=== PATIENT | male | born 1980 | race Caucasian/White ===

== ENCOUNTER 2019-09-14 05:32 | Emergency (ER) | payer MEDICAID, SELFPAY ==
[2019-09-14] VITALS (11 sets, daily range): BP systolic 106–124; BP diastolic 70–93; PULSE 56–116; RESP 11–27; TEMP 36.5; O2SAT 95–100; BMI 32.6
--- NOTE | 2019-09-14 05:39 | ED.RN ---
CALLED FOR EKG PER RN REQUEST, NO OLD EKGS IN MUSE
--- NOTE | 2019-09-14 05:40 | ED.VIS.GEN ---
History of Present Illness Chief Complaint: Syncope Informant: Patient Narrative: 38-year-old male presents after a near syncopal episode while he was working at [employer]. 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 This morning when he awoke he felt like he was little off but thought he would feel better when he got to work. When he started to do lifting he started to feel short of breath and lightheaded. He states he went and sat down for a few minutes and started to feel better but when he stood up he almost fainted again. He does say that he feels short of breath. He is denying chest pain. He states his heart rate is usually 60. He has not had a fever or cough. 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 He denies any medical problems. Past Medical History - Allergies and Home Meds Allergies/Adverse Reactions: Allergies Penicillins Allergy (Verified 09/14/19 05:41) PT UNSURE OF REACTION sulfamethoxazole [From Bactrim] Allergy (Verified 09/14/19 05:41) Hives trimethoprim [From Bactrim] Allergy (Verified 09/14/19 05:41) Hives Past Medical History: None Lives: Alone Smoking Status: Never smoker Alcohol: None Drugs: None Review of Systems General: Reports: - - Near syncopal episode prior to arrival. Denies: Chills, Fever Eyes: Denies: Visual changes - bilaterally, Diplopia ENT: Denies: Rhinorrhea, Sore throat Cardiovascular: Reports: Palpitations, Heart racing. Denies: Chest pain Respiratory: Reports: Dyspnea, Dyspnea on exertion Gastrointestinal: Denies: Abdominal pain, Nausea Musculoskeletal: Denies: Myalgias, Arthralgias Skin: Denies: Rash Neurological: Denies: Headache Physical Exam Inital Vital Signs reviewed: Yes General: Well nourished, No Acute Distress Head: Normocephalic, Atraumatic Eyes: Perrl ENT: Moist mucous membranes Cardiovascular: Irregular, Tachycardia Respiratory: No distress, CTA bilaterally, Chest nontender. Negative for: Wheezing Abdomen: Soft Extremities: Nontender, No edema Skin: Normal color Neurological: Alert, Oriented x3 Psychological: Normal affect Diagnostic/Tx/Re-eval - Rhythm Strip Rhythm Strip: A-fib Rate: 142 - EKG Initial EKG Interpretation: Atrial Fibrillation - RVR 142 BPM Prior: No Prior Follow-up EKG Interpretation: Atrial Fibrillation - Beats per minute - Medical Decision Making Presents with near syncope and shortness of breath he is found to be in atrial fibrillation with RVR. This is new onset for him. It started this morning however. Patient denies any other medical problems. Ultimately his lab work-up is normal with exception of a potassium of 3.4. Troponins negative. D-dimer is negative. Patient was given 20 of Cardizem and now is a rate of 83 bpm. He feels improved. Patient was discussed with Dr. Farley who recommended Xarelto and then cardioversion in an hour after that. Signed out to incoming ED physician. Patient's prescription for Xarelto was written. If he cardiovert he does not need to be on metoprolol. Dr. Farley did come and evaluate the patient in the ED. Consented for conscious sedation with propofol and for electrical cardioversion. He understands risks and benefits. Impression: 1. Near syncope 2. New onset A. fib 3. Status post cardioversion ED Disposition - Plan for ED Patient: Disposition: Home or Assisted Living Instructions: Atrial Fibrillation, Cardioversion Referrals: Care Physician,No Primary [Primary Care Provider] - Anil Farley MD [STAFF PHYSICIAN] -
--- NOTE | 2019-09-14 05:46 | RAD_ITS ---
STUDY: X-RAY CHEST REASON FOR EXAM: Male, 38 years old. Dizziness and shortness of breath. TECHNIQUE: AP portable chest. COMPARISON: None. FINDINGS: The lungs are clear and expanded. There is no demonstrated pleural abnormality. Normal size heart. Normal mediastinum and wendie. Normal visualized pulmonary arteries. Normal visualized aortic arch and descending thoracic aorta. Normal visualized thoracic spine. Normal visualized ribs, clavicles, and shoulders. There is no demonstrated abnormality of the visualized soft tissue structures of the upper abdomen. RAD/Chest 1 View (Portable) IMPRESSION: Normal x-ray examination of the chest. Electronically Signed: Eduardo Briones MD at 6:39 EDT , Service support ,
--- NOTE | 2019-09-14 05:46 | EKG12_ITS ---
Test Reason : A FIB Blood Pressure : / mmHG Vent. Rate : 052 BPM Atrial Rate : 052 BPM P-R Int : 122 ms QRS Dur : 094 ms QT Int : 412 ms P-R-T Axes : 024 042 027 degrees QTc Int : 383 ms Sinus bradycardia Low voltage QRS (Limb Leads) Confirmed by ARLETTE AMBRIZ, KHUSHBU ([id number]), video editor MAGEN ERWIN ([id number]) on 09/20/2019 9:10:56 AM Referred By: TOMAS Confirmed By:KHUSHBU CHONG MD
[2019-09-14] MEDS: Aspirin 81 MG TAB.CHEW 324 MG PO (05:51)
[2019-09-14] MEDS: dilTIAZem 25 MG/5 ML Vial 20 MG IV BOLUS (05:51)
[2019-09-14] MEDS: 0.9% Normal Saline 1,000 ML 1000 ML IV (05:51)
[2019-09-14 05:55] LABS: Absolute Neutrophil Count 3.3 X10^3/uL (2.0-7.7); Basophil# 0.03 X10^3/uL; Basophil% 0.5 % (0-1); Eosinophil# 0.09 X10^3/uL; Eosinophils% 1.4 % (0-5); Hematocrit 45.1 % (40-54); Lymphocyte % 35.2 % (19-41); Mean Corp Hgb Conc 35.5 g/dL (32-36); Mean Corpuscular Volume 87.4 fL (80-94); Mean Platelet Vol. 9.2 fl (6.2-12.0); Monocyte# 0.63 X10^3/uL; Monocyte% 10.1 % (0-10); NRBC Flagged by Analyzer 0 % (0-5); Neutrophil # 3.29 X10^3/uL (2.7-7.7); Neutrophil % 52.6 % (47-70); Platelet Count 359 K/mm3 (150-450); RBC Distribution Width CV 12.6 % (11.6-14.6); RBC Distribution Width SD 39.8 fl (35.1-43.9); Red Blood Count 5.16 M/mm3 (4.6-6.2); White Blood Count 6.3 K/mm3 (4.4-11.0)
[2019-09-14 06:09] LABS: Anion Gap 6 (5-15); BUN 15 mg/dL (7-18); BUN/Creat Ratio 13.8 RATIO (10-20); Chloride 112 mmol/L (98-107); Creatinine, Serum 1.09 mg/dL (0.70-1.30); EST Glomerular Filtration Rate 81 mL/min (>60); Est Glom Filt Rate - Afr Amer 98 mL/min (>60); Estimated Creatinine Clearance 99.79 ml/min; Glucose 73 mg/dL (74-106); Potassium 3.4 mmol/L (3.5-5.1); Sodium Level 142 mmol/L (136-145)
--- NOTE | 2019-09-14 06:46 | EKG12_ITS ---
Test Reason : SYNCOPE Blood Pressure : / mmHG Vent. Rate : 083 BPM Atrial Rate : 416 BPM P-R Int : 000 ms QRS Dur : 090 ms QT Int : 344 ms P-R-T Axes : 000 038 014 degrees QTc Int : 404 ms Atrial fibrillation Abnormal ECG Confirmed by ARLETTE AMBRIZ, KHUSHBU ([id number]), editor & co founder MAGEN ERWIN ([id number]) on 09/20/2019 9:11:17 AM Referred By: TOMAS Confirmed By:KHUSHBU CHONG MD
[2019-09-14 07:08] LABS: Magnesium 2.1 mg/dL (1.6-2.6)
[2019-09-14] MEDS: Rivaroxaban 20 MG Tablet PO (07:39)
[2019-09-14] MEDS: 0.9% Normal Saline 1,000 ML 999 ML IV (07:46)
--- NOTE | 2019-09-14 08:39 | ED.DEP ---
ED Disposition - Plan for ED Patient: Disposition: Home or Assisted Living Instructions: Cardioversion, Atrial Fibrillation Prescriptions: Diltiazem CD [Cardizem CD] 120 mg PO DAILY #30 cap Prescription Printed Rivaroxaban [Xarelto] 20 mg PO DAILY #30 tab Prescription Printed Referrals: Anil Farley MD [STAFF PHYSICIAN] - Care Physician,No Primary [Primary Care Provider] -
--- NOTE | 2019-09-14 08:50 | EKG12_ITS ---
Test Reason : DYSRHYTHMIA Blood Pressure : / mmHG Vent. Rate : 142 BPM Atrial Rate : 147 BPM P-R Int : 000 ms QRS Dur : 088 ms QT Int : 298 ms P-R-T Axes : 000 046 015 degrees QTc Int : 458 ms Atrial fibrillation with rapid ventricular response with premature ventricular or aberrantly conducte d complexes Abnormal ECG No previous ECGs available Confirmed by OLGA ZARATE ([id number]), metropolitan editor SRINI BUENROSTRO ([id number]) on 09/27/2019 2:29:26 PM Referred By: TOMAS Confirmed By:OLGA ZARATE
[2019-09-14] MEDS: Propofol 200 MG/20 ML Vial IV BOLUS (08:52)
--- NOTE | 2019-09-14 10:50 | CON.PCM_ITS ---
Problem List (1) Atrial fibrillation Status: Acute Reason for Consult Date of Consultation: 09/14/19 History of Present Illness: The patient is a 38 year [id number]-bze white male who is referred for evaluation of atrial fibrillation. He states to the best of his knowledge she has been in his usual state of health until earlier this morning. He states he awoke and felt that his heart rate was somewhat different and he felt somewhat off . He proceeded to work but then realized that he did not feel well. He felt somewhat faint . Thus he proceeded to the emergency department for further evaluation. There he was found to be in atrial fibrillation with rapid ventricular response. He was treated with IV diltiazem with slowing of his ventricular rate. He denies other forms of chest discomfort or difficulty breathing/orthopnea/PND. He denies any lower extremity peripheral pitting edema. There is been no near syncope or syncope. 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 He has been evaluated and treated for such. He denies any recent change in his caffeine intake (usually 1 cup/day) or alcohol intake (usually an occasional beer) or any nicotine intake or xojj-[id number]-[id number] decongestant intake. His laboratory studies were considered unremarkable with the exception of a slightly low potassium level. His electrocardiogram demonstrated atrial fibrillation. His chest x-ray reported no acute cardiopulmonary findings. [] Past Medical History Allergies/Adverse Reactions: Allergies Penicillins Allergy (Verified 09/14/19 05:41) PT UNSURE OF REACTION sulfamethoxazole [From Bactrim] Allergy (Verified 09/14/19 05:41) Hives trimethoprim [From Bactrim] Allergy (Verified 09/14/19 05:41) Hives Home Medications: Ambulatory Orders Medication Instructions Recorded Diltiazem CD [Cardizem CD] 120 mg PO DAILY #30 cap 09/14/19 Rivaroxaban [Xarelto] 20 mg PO DAILY #30 tab 09/14/19 Lives: Alone Smoking Status: Never smoker Alcohol: None Drugs: None Review of Systems - Review of Systems General: Denies: Fever, Night Sweats, Fatigue Cardiovascular: Reports: Palpitations, Near Syncope. Denies: Chest Discomfort, Shortness of Breath, Orthopnea, PND, Peripheral Edema, Lightheadedness, Dizziness, Syncope Respiratory: Denies: Cough, Sputum Production, Hemoptysis Gastrointestinal: Denies: Hematemesis, Hematochezia, Melena Genitourinary: Denies: Dysuria, Hematuria Skin: Denies: Rash Subjectve: This is a 38-year-old white male who appears to be resting reasonably comfortably at the moment in no acute distress. Objective: Vital Signs Temp Pulse Resp BP Pulse Ox 97.7 F L 60 16 108/80 98 09/14/19 05:34 09/14/19 09:58 09/14/19 09:58 09/14/19 09:58 09/14/19 09:58 Oxygen Flow Rate (L/min) [4] 4 Oxygen Flow Rate (L/min) [3] 2 Oxygen Flow Rate (L/min) [2] 2 Oxygen Flow Rate (L/min) [1 ( 2 Initial Baseline)] Oxygen Flow Rate (L/min) 2 Oxygen Delivery Method [4] Nasal Cannula Oxygen Delivery Method [3] Nasal Cannula Oxygen Delivery Method [2] Nasal Cannula Oxygen Delivery Method [1 ( Nasal Cannula Initial Baseline)] Oxygen Delivery Method Room Air Weight: 234 lb 5.622 oz Body Mass Index (BMI) 32.6 Intake and Output for Last 24 Hours 09/12/19 09/13/19 09/14/19 23:59 23:59 23:59 Intake Total 1999 / 1999 Output Total 1000 / 1000 Balance 1000 / 1000 General: Awake, Alert, Oriented x 3, Cooperative, No Acute Distress HEENT: Atraumatic, Normocephalic, PERRL, EOMI, Sclera Non Icteric Oral: Moist Mucosa Neck: Supple, Good ROM, No JVD Lungs: Clear to auscultation Cardiovascular: Irregular Rhythm, Normal S1, Normal S2 Vascular: No Carotid Bruits Abdomen: Bowel Sounds Present, Soft, Non Tender Extremities: No edema Neurological: No Focal Motor or Sensory Deficit Psych/Mental Status: Appropriate 09/14/19 05:40: WBC 6.3, RBC 5.16, Hgb 16.0, Hct 45.1, MCV 87.4, MCH 31.0, MCHC 35.5, Plt Count 359, MPV 9.2, Immature Gran % (Auto) 0.200, Neut % (Auto) 52.6, Lymph % (Auto) 35.2, [place] % (Auto) 10.1 H, Eos % (Auto) 1.4, Baso % (Auto) 0.5, Absolute Neuts (auto) 3.3, Nucleated RBC % 0 09/14/19 05:40: D-Dimer Quant (PE/DVT) 0.30 09/14/19 05:40: Sodium 142, Potassium 3.4 L, Chloride 112 H, Carbon Dioxide 24.0, Anion Gap 6, BUN 15, Creatinine 1.09, Est GFR (MDRD) Af Amer 98, Est GFR (MDRD) Non-Af 81, BUN/Creatinine Ratio 13.8, Glucose 73 L, Calcium 9.0, Troponin I < 0.015 09/14/19 05:40: Magnesium 2.1 Rhythm: Atrial fibrillation EKG: As noted above CXR: As noted above: Please see official report Assessment/Plan 1. Atrial fibrillation The patient presented with atrial fibrillation. This may be secondary to the patient's history of NASIM barring another etiology being found. It appears this started shortly prior to his emergency department admission. He has been evaluated noninvasively as noted above. At the present time he is going to be monitored. Based upon his acute presentation, status post evaluation, it was thought reasonable the patient could be considered for an attempt at synchronized biphasic DC cardioversion to regain sinus rhythm. This would be preceded by a dose of Xarelto of 20 mg p.o. x1 then waiting for approximately 1 hour prior to proceeding with the DC cardioversion procedure. If the patient regain sinus rhythm then the patient may continue on medical therapy such as diltiazem/Cardizem CD starting at 120 mg a day as well as anticoagulant therapy with the Xarelto at 20 mg p.o. daily. The patient would be recommended for outpatient cardiovascular follow-up which would include additional cardiovascular studies such as a transthoracic echoc ardiogram and other studies as deemed appropriate. 2. Obstructive sleep apnea The patient should continue evaluation and care of his obstructive sleep apnea as deemed appropriate. Comment: The patient states that [place] He does need to seek PCP establishment. Comment: The patient's case was discussed and reviewed with the [facility] emergency department staff. This note was generated using a voice recognition system and there may be incorrect words, spelling or punctuation that were not noted when reviewing the office note prior to saving.
== END 2019-09-14 09:59 | disposition home or self-care (01) ==
PROVIDERS: Emergency Provider Student in an Organized Health Care Education/Training Program
DX: R55 Syncope and collapse (principal); I48.91 Unspecified atrial fibrillation
CPT/HCPCS: 71045; 80048; 83735; 84484; 85025; 85379; 92960; 93005; 96361; 96374; 99285; J7030; A4216

== ENCOUNTER → 2020-02-10 14:42 | Outpatient (CLI) | payer OTHER, MEDICAID, SELFPAY ==
[2020-01-20 13:55] VITALS: BMI 30.7
--- NOTE | 2020-02-10 14:45 | ECHOD_ITS ---
Reason For Study: AFIB Procedure This was a 2D Doppler, Color Flow transthoracic echocardiogram. Exam performed in department. Left Ventricle Normal LV size. The estimated ejection fraction is 55 %. No evidence for diastolic dysfunction. No regional wall motion abnormalities noted. Right Ventricle Normal RV size. Normal systolic function. Atria Normal left atrium. Normal right atrium. No doppler evidence for ASD. Mitral Valve There is no mitral valve stenosis. No mitral valve insufficiency. Tricuspid Valve There is no tricuspid stenosis. Trivial tricuspid valve insufficiency. Pulmonary artery systolic pressure is 30 mmHg. Aortic Valve Trisinus/trileaflet aortic valve. There is no aortic stenosis. No aortic valve insufficiency. Pulmonic Valve There is no pulmonic valvular stenosis. No pulmonic valve insufficiency. Great Vessels Normal aortic root. Pericardium/Pleural No pericardial effusion. MMode/2D Measurements & Calculations LVIDd: 5.5 cm IVSd: 0.90 cm Ao root diam: 3.1 cm LVIDs: 3.5 cm LVPWd: 0.90 cm RVDd: 4.1 cm FS: 36.8 % LAV(MOD-bp): 52.2 ml LVAd ap4: 37.2 cm2 SV(MOD-sp4): 69.8 ml LAV(MOD-bp) Indexed: 23.8 ml/m2 EDV(MOD-sp4): 125.2 ml LAV(MOD-sp2): 56.2 ml EDV(sp4-el): 129.8 ml LAV(MOD-sp4): 44.6 ml LVAs ap4: 21.1 cm2 ESV(MOD-sp4): 55.4 ml ESV(sp4-el): 53.7 ml EF(MOD-sp4): 55.7 % EF(sp4-el): 58.6 % SV(sp4-el): 76.1 ml LA A4 area: 18.8 cm2 LA dimension(2D): 4.1 cm RA A4 area: 14.2 cm2 Time Measurements MV dec time: 0.28 sec Doppler Measurements & Calculations MV E max pierre: 84.5 cm/sec Lat Peak E' Pierre: 17.9 cm/sec Med Peak E' Pierre: 13.3 cm/sec MV A max pierre: 30.5 cm/sec E/E' lat: 4.7 E/E' med: 6.3 MV E/A: 2.8 Ao V2 max: 128.1 cm/sec LV V1 max: 115.2 cm/sec PA V2 max: 123.4 cm/sec Ao max P.6 mmHg LV V1 max P.3 mmHg TR max pierre: 249.2 cm/sec TR max P.8 mmHg Interpretation Summary The estimated ejection fraction is 55 %. No evidence for diastolic dysfunction. Trivial tricuspid valve insufficiency. Ordering Physician: Deshawn Pate Referring Physician: CHERYL SIERRA Performed By: Estrella Babin RDCS, RVT
== END ==
PROVIDERS: PCP Nurse Practitioner Primary Care; Referring Provider Internal Medicine Cardiovascular Disease; Visit Provider Internal Medicine Cardiovascular Disease
DX: I48.0 Paroxysmal atrial fibrillation (principal)
CPT/HCPCS: 93306

== ENCOUNTER 2021-10-27 09:53 | Emergency (ER) | payer OTHER, BC, SELFPAY ==
[2021-10-27 09:54] VITALS: BP 145/83; PULSE 57; RESP 16; TEMP 36.7; O2SAT 99; BMI 36.0
--- NOTE | 2021-10-27 10:05 | EX.ED.UPPERE ---
HPI History of Present Illness Chief Complaint: Upper Extremity Injury Informant: patient Onset/Context/Timing Onset: Today Current Severity: Mild Maximum Severity: Mild Narrative Narrative: Patient present secondary left wrist pain. He works at [employer] and states he was lifting a package this morning and felt a popping sensation in his left wrist. He has mild pain to the area. He is right-hand dominant. He has had prior left wrist surgery after a fracture approximately 20 years ago. He had pins placed temporarily that were pulled. [facility] Medical History (Updated 10/27/21 @ 10:[address] Onelia Guardado MD) Obstructive sleep apnea Paroxysmal atrial fibrillation Allergy/AdvReac Type Severity Reaction Status Date / Time Penicillins Allergy PT UNSURE Verified 10/27/21 09:56 OF REACTION sulfamethoxazole Allergy Hives Verified 10/27/21 09:56 [From Bactrim] trimethoprim [From Bactrim] Allergy Hives Verified 10/27/21 09:56 Family History Mother Thyroid disorder Brother Sleep apnea Grandfather Atrial fibrillation Onset in mid 70s. Surgical History H/O adenoidectomy H/O left wrist surgery Social History Smoking Status: Never smoker alcohol intake: current details: Rarely ROS ROS ED Constitutional Constitutional ED: Denies chills or fever(s) Eyes Eyes: Denies change in vision or discharge from eye(s) ENT ENT ED: Denies discharge from eye(s), rhinorrhea or sore throat Cardiovascular Cardiovascular: Denies chest pain or palpitations Respiratory/Chest Respiratory/Chest: Denies cough or dyspnea Gastrointestinal Gastrointestinal: Denies abdominal pain, diarrhea, nausea or vomiting Genitourinary Genitourinary ED: Denies difficulty urinating or dysuria Musculoskeletal Musculoskeletal: Reports extremity pain; Denies back pain Integumentary Denies Abrasions or rash Neurologic Neurologic: Denies headache(s) or weakness Allergic/Immunologic Allergic/Immunologic ED: Denies lip swelling or urticaria EXAM Physical Exam Const Vital Signs: 10/27/21 09:54 Temperature 98.0 F Temperature Source Temporal Pulse Rate 57 L Respiratory Rate 16 Blood Pressure 145/83 H Blood Pressure Mean 103 Pulse Ox 99 Oxygen Delivery Method Room Air Positive well nourished and well developed General Appearance ED: well developed HEENT Reports normocephalic and head/scalp atraumatic Eyes PERRL and EOMs intact bilaterally Neck supple Chest Wall inspection of chest normal and palpation of chest normal Resp normal respiratory effort and clear to auscultation bilaterally Cardio regular rate and regular rhythm GI normal to inspection, nondistended, normoactive bowel sounds Palpation: soft Extremity normal to inspection Extremity Narrative: No reproducible tenderness to palpation. Full range of motion of the left upper extremity. Good sensation and cap refill distally. Normal strength. Neuro oriented x3 and no sensory deficits noted Sensorium / Orientation: alert Motor Exam: strength 5/5 throughout Psych mental status grossly normal Skin no rashes or lesions noted MDM MDM MDM Narrative Medical decision making narrative: Left wrist x-rays obtained. Treatment and Re-Evaluation Narrative: Left wrist x-rays per my interpretation reveal chronic changes with no acute fracture. Test results discussed with the patient. He will follow-up with [facility]. If not improving I advised him they may refer him on to orthopedics because of his history of prior fracture and pins. He voices understanding and agreement. Discharge Plan Triage Chief Complaint: Upper Extremity Injury ED Provider: Onelia Guardado Dx/Rx/DC Orders Clinical Impression: Left wrist sprain Instructions: ED Wrist Sprain Stand Alone Forms: Work Status Form Primary Care Provider: Castro García NP Referrals: [facility] [place] [Group of Physicians] - 3-5 Days Castro García NP, [employer] [Primary Care Provider] - Disposition Disposition: Home, Self Care
--- NOTE | 2021-10-27 10:09 | RAD_ITS ---
STUDY: X-RAY - LEFT WRIST REASON FOR EXAM: Male, 41 years old. pain TECHNIQUE: 3 view(s) of the wrist were obtained. COMPARISON: None. FINDINGS: Suspect healed fracture the distal radius with a chronic ulnar styloid avulsion fracture. Normal radiocarpal articulation. Normal distal radioulnar articulation. Normal carpal bones. Normal carpal articulations. Normal carpometacarpal articulation of the thumb. Normal second through fifth carpometacarpal articulations. Normal visualized metacarpal bones. The soft tissue structures are unremarkable. RAD/Wrist min 3 Views IMPRESSION: No acute fracture or dislocation. Electronically Signed: Jamal Munguia MD at 10:55 EDT ,
--- NOTE | 2021-10-27 10:30 | ED.RN ---
NO DRUG SCREEN IS REQUIRED. 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
== END 2021-10-27 10:44 | disposition home or self-care (01) ==
LOC: ED 10:40
PROVIDERS: Emergency Provider Emergency Medicine; PCP Nurse Practitioner Primary Care; Visit Provider Emergency Medicine
DX: S63.92XA Sprain of unspecified part of left wrist and hand, initial encounter (principal); G47.33 Obstructive sleep apnea (adult) (pediatric); X58.XXXA Exposure to other specified factors, initial encounter
CPT/HCPCS: 73110; 99282

== ENCOUNTER 2024-01-01 10:44 | Observation (INO) | payer BC, MEDICAID, SELFPAY ==
[2024-01-01] VITALS (23 sets, daily range): BP systolic 91–117; BP diastolic 55–90; PULSE 90–148; RESP 11–24; TEMP 35.7–36.7; O2SAT 94–100; BMI 32.5; BMI 32.1
--- NOTE | 2024-01-01 10:58 | RAD_ITS ---
STUDY: X-RAY CHEST REASON FOR EXAM: Male, 43 years old. Chest pain TECHNIQUE: Single AP portable view of the chest. COMPARISON: None. FINDINGS: The lungs are clear and expanded. There is no demonstrated pleural abnormality. Normal size heart. Normal mediastinum and wendie. Normal visualized pulmonary arteries. Normal visualized aortic arch and descending thoracic aorta. Normal visualized thoracic spine. Normal visualized ribs, clavicles, and shoulders. There is no demonstrated abnormality of the visualized soft tissue structures of the upper abdomen. RAD/Chest 1 View (Portable) IMPRESSION: Normal x-ray examination of the chest. Electronically Signed: Roberto Ramirez MD at 11:29 EST ,
--- NOTE | 2024-01-01 10:59 | EKG12_ITS ---
Test Reason : PALPS Blood Pressure : */* mmHG Vent. Rate : 148 BPM Atrial Rate : * BPM P-R Int : * ms QRS Dur : 78 ms QT Int : 286 ms P-R-T Axes : * 55 8 degrees QTcB Int : 449 ms Critical Test Result: High HR Atrial fibrillation with rapid ventricular response with premature ventricular or aberrantly conducte d complexes Abnormal ECG Confirmed by JUAN JOSÉ CORDOBA ([id number]), supervising editor trailer KAPIL ASHTON ([id number]) on 01/02/2024 11:53:20 AM Referred By: Confirmed By: JUAN JOSÉ CORDOBA
[2024-01-01 11:11] LABS: Absolute Lymphocyte Count 3.23 X10^3/uL (0.83-4.51); Absolute Neutrophil Count 3.3 X10^3/uL (2.0-7.7); Basophil# 0.04 X10^3/uL; Basophil% 0.5 % (0-1); Eosinophils% 1.3 % (0-5); Hematocrit 49.7 % (40-54); Hemoglobin 17.3 g/dL (13.0-16.5); Lymphocyte # 3.23 X10^3/ul (0.83-4.51); Lymphocyte % 43.2 % (19-41); Mean Corp Hgb Conc 34.8 g/dL (32-36); Mean Corpuscular Hgb 30.1 pg (27.0-32.0); Mean Corpuscular Volume 86.6 fL (80-94); Mean Platelet Vol. 8.9 fl (6.2-12.0); Monocyte# 0.78 X10^3/uL; Monocyte% 10.4 % (0-10); NRBC Flagged by Analyzer 0 % (0-5); Neutrophil % 44.3 % (47-70); Platelet Count 426 K/mm3 (150-450); RBC Distribution Width CV 12.7 % (11.6-14.6); RBC Distribution Width SD 39.7 fl (35.1-43.9); Red Blood Count 5.74 M/mm3 (4.6-6.2); White Blood Count 7.5 K/mm3 (4.4-11.0)
[2024-01-01 11:28] LABS: Prothrombin Time (Protime)PT. 13.5 SECONDS (11.7-14.9)
[2024-01-01 11:29] LABS: Partial Thromboplast Time 34.9 Seconds (24.1-36.2)
[2024-01-01 11:51] LABS: AST(SGOT) 30 U/L (15-37); Alanine Aminotransfer ALT/SGPT 35 U/L (16-61); Albumin, Serum 4.3 g/dL (3.2-5.0); Alkaline Phosphatase 79 U/L (45-117); Anion Gap 5 (5-15); BUN 17 mg/dL (7-18); BUN/Creat Ratio 14.2 RATIO (10-20); Bilirubin, Direct 0.22 mg/dL (0.00-0.30); Calcium,Total 9.2 mg/dL (8.5-10.1); Chloride 108 mmol/L (98-107); EST Glomerular Filtration Rate 71 mL/min (>60); Est Glom Filt Rate - Afr Amer 86 mL/min (>60); Estimated Creatinine Clearance 100.21 ml/min; Globulin 3.5 g/dL (2.2-4.2); Glucose 94 mg/dL (74-106); Magnesium 2.2 mg/dL (1.6-2.6); Protein, Total 7.8 g/dL (6.4-8.2); Sodium Level 139 mmol/L (136-145); Troponin-I HS 7 pg/mL (3.0-78.0)
--- NOTE | 2024-01-01 11:57 | EX.ED.DYSGE1 ---
HPI History of Present Illness Chief Complaint: Palpitations Informant: patient and spouse/S.O. Narrative Narrative: 43-year-old male with a prior history of atrial fibrillation presenting to the emergency room with palpitations. Patient states that last night while laying in bed at around 2330 hrs. he began to feel his heartbeat irregular. He states that in the past it had resolved with time but when he woke this morning it continued to be irregular. He notes a tightness in the chest but no pain. No significant dyspnea. He states he is not currently on any medications. At 1 point he was taking what sounds like diltiazem as well as Xarelto. He had had an echocardiogram as part of his workup with cardiology. He does have a history of sleep apnea and does wear CPAP therapy. [facility] Medical History (Updated 01/01/24 @ 12:[address] Stef Antunez DO) Atrial fibrillation Home Medications ?Medication ?Instructions ?Recorded ?Last Taken ?Type multivitamin (Daily Multi-Vitamin 1 tab PO DAILY 01/01/24 Unknown History tablet) Allergy/AdvReac Type Severity Reaction Status Date / Time penicillin G AdvReac Hives Verified 01/01/24 10:48 sulfamethoxazole (From AdvReac Hives Verified 01/01/24 10:48 Bactrim) trimethoprim (From Bactrim) AdvReac Hives Verified 01/01/24 10:48 Social History Smoking Status: Never smoker [facility] ED Constitutional Constitutional ED: Denies chills, fever(s) or weight loss Eyes Eyes: Denies change in vision or diplopia ENT ENT ED: Denies ear pain, rhinorrhea or sore throat Cardiovascular Cardiovascular: Reports palpitations and racing heartbeat; Denies chest pain or orthopnea Respiratory/Chest Respiratory/Chest: Denies cough, dyspnea or orthopnea Gastrointestinal Gastrointestinal: Denies abdominal pain, diarrhea, nausea or vomiting Genitourinary Genitourinary ED: Denies dysuria, hematuria or urinary frequency Musculoskeletal Musculoskeletal: Denies arthralgias or myalgias Integumentary Denies abscess or rash Neurologic Neurologic: Denies headache(s) or weakness Psychiatric Psychiatric: Denies anxiety, depression, suicidal ideation or suicidal thoughts Endocrine Endocrinology: Denies polydipsia, polyphagia or polyuria Allergic/Immunologic Allergic/Immunologic ED: Denies mouth swelling, tongue swelling or urticaria EXAM Physical Exam Const Vital Signs: 01/01/24 10:45 01/01/24 11:06 01/01/24 11:45 Temperature 96.2 F L Temperature Source Temporal Pulse Rate 148 H 148 H Respiratory Rate 16 18 Respiratory Effort Normal Non-Labored Blood Pressure 113/65 91/65 Blood Pressure Mean 81 73 Pulse Ox 98 99 Oxygen Delivery Method Room Air Room Air 01/01/24 12:51 01/01/24 13:00 01/01/24 13:36 Temperature Temperature Source Pulse Rate 141 H 106 H 96 Respiratory Rate 21 H 18 17 Respiratory Effort Blood Pressure 110/69 109/77 Blood Pressure Mean 82 87 Pulse Ox 99 96 Oxygen Delivery Method Room Air Positive well nourished and well developed General Appearance ED: well developed and NAD HEENT Reports normocephalic, head/scalp atraumatic and moist mucous membranes Eyes PERRL and EOMs intact bilaterally Neck no lymphadenopathy, supple and no JVD Resp normal respiratory effort and clear to auscultation bilaterally Cardio no murmurs Rate: tachycardic Rhythm: abnormal rhythm irregularly irregular GI normal to inspection, nondistended, normoactive bowel sounds and non-tender Palpation: soft Back/Spine no CVA tenderness and normal ROM Extremity normal to inspection General Extremety ED: Negative for edema General Extremity: Negative for edema Neuro oriented x3 and CN's II-XII intact bilaterally Sensorium / Orientation: alert Motor Exam: strength 5/5 throughout Psych mental status grossly normal Mood & Affect: Negative for depressed or tearful Skin no rashes or lesions noted and no wounds MDM MDM MDM Narrative Medical decision making narrative: Differential diagnosis includes but not limited to acute coronary syndrome cardiac dysrhythmia electrolyte abnormalities hyper or hypothyroidism dehydration anemia EKG shows atrial fibrillation with rapid ventricular response at a rate of [address] depression or elevation is noted. White count 7.5 hemoglobin 17.3 with platelet count of 426. Sodium potassium magnesium within normal limits. Troponin is 7 TSH 2.4. My depend interpretation of the chest x-ray is no acute process. Patient's [id number] score is 0. I spoke with cardiology. Their recommendation is for Cardizem as well as heparin drip. Plan will be for admission. Dr. Cardenas came to the emergency department and evaluated the patient. He is recommending amiodarone bolus and drip. History & Record Review Discussion w/independent historian: Patient and Significant other Additional record(s) reviewed:: Prior outpatient record, Prior ED visit and Prior labs Lab Data Attestation: I reviewed the patient's lab results. Labs: Laboratory Results - last 24 hr 01/01/24 11:05 WBC 7.5 RBC 5.74 Hgb 17.3 H Hct 49.7 MCV 86.6 MCH 30.1 MCHC 34.8 RDW Std Deviation 39.7 RDW Coeff of Joey 12.7 Plt Count 426 MPV 8.9 Immature Gran % (Auto) 0.300 Neut % (Auto) 44.3 L Lymph % (Auto) 43.[address] [place] % (Auto) 10.4 H Eos % (Auto) 1.3 Baso % (Auto) 0.5 Absolute Neuts (auto) 3.3 Absolute Lymphs (auto) 3.23 Nucleated RBC % 0 PT 13.5 INR 1.0 APTT 34.9 Sodium 139 Potassium 4.0 Chloride 108 H Carbon Dioxide 26.0 Anion Gap 5 BUN 17 Creatinine 1.20 Estim Creat Clear Calc 100.21 Est GFR (MDRD) Af Amer 86 Est GFR (MDRD) Non-Af 71 BUN/Creatinine Ratio 14.2 Glucose 94 Calcium 9.2 Magnesium 2.2 Total Bilirubin 1.00 Direct Bilirubin 0.22 AST 30 ALT 35 Alkaline Phosphatase 79 Troponin I High Sens 7 Total Protein 7.8 Albumin 4.3 Globulin 3.5 TSH 2.430 Radiography Diagnostic Testing: Clinical Impression(s) from Imaging Studies Chest X-Ray 01/01/24 10:58 IMPRESSION: Normal x-ray examination of the chest. Electronically Signed: Roberto Ramirez MD at 11:29 EST , EKG Initial EKG: Attestation: I personally reviewed and interpreted this EKG as follows: Comments: Atrial fibrillation with rapid ventricular response at a rate of 148 bpm. Management Discussion w/another healthcare provider: Hospitalist (Dr. Olvera) and Biometrics Analyst (Dr. King) Discharge Plan Dx/Rx/DC Orders Clinical Impression: Atrial fibrillation with RVR Disposition Disposition: Acute Care Hospital [facility]
[2024-01-01] MEDS: Diltiazem 125 MG in Dextrose 5%-Water (100mL Bag) 100 ML IV (12:51)
[2024-01-01] MEDS: dilTIAZem 25 MG/5 ML Vial 10 MG IV BOLUS (12:53)
[2024-01-01] MEDS: HEPARIN/D5w 25,000 UNITS 25,000 UNITS/250 ML IV.SOLN. 15 UNITS CONT INF (13:06)
[2024-01-01] MEDS: Heparin Injection (Vial) 5,000 UNIT/ML VIAL 8000 UNIT IV (13:07)
[2024-01-01] MEDS: Amiodarone 150 MG in Dextrose 5%-Water (100mL Bag) 100 ML 600 MG IV BOLUS (13:36)
[2024-01-01] MEDS: Amiodarone 360 MG in Dextrose 5% Viaflo Bag 192.8 ML 33.3 MG CONT INF (13:53)
--- NOTE | 2024-01-01 14:17 | HP.PCM.HOS_ITS ---
HPI - General General Date of Admission: 01/01/24 Date of Service: 01/01/24 Chief Complaint: Fluttering in chest HPI Narrative ALMA SANTOS, is a 43-year-old male past medical history of A-fib presented [facility] ED 01/01/2024 for palpitations. At 11:30 PM last night he began to feel an irregular heartbeat and in the past it is resolved by the time he woke up in the morning however today it continued to be irregular and he developed some chest tightness with this prompting him to come to the emergency department. Had no significant dyspnea or overt chest pain but was found to be in A-fib with RVR. Cardiology contacted and recommended heparin and Cardizem, he was then evaluated by cardiology and they recommended Amio and hospital admission and they will see him in consultation. of note patient does have history of A-fib and was cardioverted in 2019 and took medication for a year and then was taken off of it. He had no further episodes until last night so he is not presently on medication. Hospitalist contacted for admission. Patient evaluated at bedside. He reports history as above, has not had any recent problems with palpitations until last night, today when he could feel his heart racing he was intermittently lightheaded with some chest tightness and shortness of breath, the symptoms have resolved since rate has gotten under control but he is still acutely aware that his heart rate is out of rhythm. Does report compliance with his CPAP, occasionally will miss a day but overall does wear this. He reports he will usually drink coffee or pop daily but does not drink energy drinks, he started medication for ADHD but is no longer on them. Does have some difficulty with sleeping and has poor sleep due to his work and work hours but otherwise has no new or acute complaints. Patient denies any significant alcohol use, no substance use, no tobacco use [facility] Medical History (Updated 01/01/24 @ 12:[address] Stef Antunez, DO) Atrial fibrillation Home Medications ?Medication ?Instructions ?Recorded ?Last Taken ?Type multivitamin (Daily Multi-Vitamin 1 tab PO DAILY 01/01/24 Unknown History tablet) Allergy/AdvReac Type Severity Reaction Status Date / Time penicillin G AdvReac Hives Verified 01/01/24 10:48 sulfamethoxazole (From AdvReac Hives Verified 01/01/24 10:48 Bactrim) trimethoprim (From Bactrim) AdvReac Hives Verified 01/01/24 10:48 Social History Smoking Status: Never smoker ROS ROS Narrative General: Denies fever/chills HENT: Denies headache, denies stuffy nose, denies sore throat EYES: Denies changes in vision Resp: Denies cough, denies shortness of breath Cardiac: Still feels fluttering in his chest GI: Denies abdominal pain, denies changes in bowel, denies nausea/vomiting : Denies changes in urination Extremity: Denies swelling MSK: Denies weakness Neuro: Denies any numbness/tingling Heme: Denies any bleeding or bruising Skin: Denies rashes Psychiatric: No complaints voiced Vital Signs Vital Signs Vital Signs: 01/01/24 10:45 01/01/24 11:06 01/01/24 11:45 Temperature 96.2 F L Temperature Source Temporal Pulse Rate 148 H 148 H Respiratory Rate 16 18 Respiratory Effort Normal Non-Labored Blood Pressure 113/65 91/65 Blood Pressure Mean 81 73 Pulse Ox 98 99 Oxygen Delivery Method Room Air Room Air 01/01/24 12:51 01/01/24 13:00 01/01/24 13:36 Temperature Temperature Source Pulse Rate 141 H 106 H 96 Respiratory Rate 21 H 18 17 Respiratory Effort Blood Pressure 110/69 109/77 Blood Pressure Mean 82 87 Pulse Ox 99 96 Oxygen Delivery Method Room Air 01/01/24 14:00 01/01/24 14:05 Temperature 96.2 F L Temperature Source Pulse Rate 111 H 96 Respiratory Rate 19 H 17 Respiratory Effort Blood Pressure 106/55 L 109/77 Blood Pressure Mean 72 87 Pulse Ox 98 96 Oxygen Delivery Method Weight Weight: 105.687 kg Body Mass Index (BMI) 32.5 Physical Exam Narrative General: Alert, oriented, no apparent distress HEENT: Atraumatic, normocephalic Eyes: Anicteric, normal conjunctiva, extraocular movements grossly intact Neck: Supple Respiratory: Clear to auscultation bilaterally, normal respiratory effort Cardiovascular: Irregularly irregular GI: Soft, nontender, nondistended Extremities: No edema Musculoskeletal: Moving all extremities Neuro: No overt focal neurological deficits Skin: No rashes appreciated Psych: Cooperative Results Lab / Micro Data 01/01/24 11:05 01/01/24 11:05 Labs: Laboratory Results - last 24 hr 01/01/24 11:05: WBC 7.5, RBC 5.74, Hgb 17.3 H, Hct 49.7, MCV 86.6, MCH 30.1, MCHC 34.8, RDW Std Deviation 39.7, RDW Coeff of Joey 12.7, Plt Count 426, MPV 8.9, Immature Gran % (Auto) 0.300, Neut % (Auto) 44.3 L, Lymph % (Auto) 43.2 H, [place] % (Auto) 10.4 H, Eos % (Auto) 1.3, Baso % (Auto) 0.5, Absolute Neuts (auto) 3.3, Absolute Lymphs (auto) 3.23, Nucleated RBC % 0, PT 13.5, INR 1.0, APTT 34.9, Sodium 139, Potassium 4.0, Chloride 108 H, Carbon Dioxide 26.0, Anion Gap 5, BUN 17, Creatinine 1.20, Estim Creat Clear Calc 100.21, Est GFR (MDRD) Af Amer 86, Est GFR (MDRD) Non-Af 71, BUN/Creatinine Ratio 14.2, Glucose 94, Calcium 9.2, Magnesium 2.2, Total Bilirubin 1.00, Direct Bilirubin 0.22, AST 30, ALT 35, Alkaline Phosphatase 79, Troponin I High Sens 7, Total Protein 7.8, Albumin 4.3, Globulin 3.5, TSH 2.430 Imaging Radiology Impression Chest X-Ray 01/01/24 10:58 IMPRESSION: Normal x-ray examination of the chest. Electronically Signed: Roberto Ramirez MD at 11:29 EST , Assessment & Plan Assessment/Plan (1) Atrial fibrillation with RVR: PLAN: Plan # A-fib with RVR - since 11:30 PM last night -Patient with Cardizem bolus initially and after evaluation by cardiology it was recommended to switch to amiodarone which she is now on - on heparin drip - cardiology consult - Troponin 7, TSH 2.4 - will obtain echocardiogram -Will check magnesium - admit to telemetry -Continue heparin drip and amiodarone -If patient does not convert he may need to cardioverted as he is symptomatic, will make n.p.o. at midnight in the event cardiology would deem this necessary #NASIM -Reports overall that he is compliant with the CPAP, he will ask to bring his in from home #Hx adhd -No longer on medication -Noted #DVT ppx: On heparin drip Tina Olvera MD Charges/Coding Visit Charges Inpatient E&M: 59372 Init Hosp L1
--- NOTE | 2024-01-01 14:44 | ECHOD_ITS ---
Reason For Study: ARRHYTHMIA Procedure This was a 2D Doppler, Color Flow transthoracic echocardiogram. Exam performed portable in patient room. Left Ventricle Normal left ventricle. The estimated ejection fraction is 55-60 %. Right Ventricle Normal right ventricle. Normal systolic function. Atria Normal left atrium. Normal right atrium. Mitral Valve The mitral valve is structurally normal. No prolapse or stenosis seen. Tricuspid Valve Normal tricuspid valve. Aortic Valve Trisinus/trileaflet aortic valve. Pulmonic Valve The pulmonic valve is not well visualized. Great Vessels Normal aortic root. Pericardium/Pleural No pericardial effusion. MMode/2D Measurements & Calculations LVIDd: 4.3 cm IVSd: 1.4 cm LVOT diam: 2.3 cm LVIDs: 3.0 cm LVPWd: 1.0 cm LVOT area: 4.1 cm2 RVDd: 3.9 cm FS: 29.1 % asc Aorta Diam: 3.0 cm LAV(MOD-bp): 29.4 ml LVAd ap4: 23.6 cm2 LAV(MOD-bp) Indexed: 13.1 ml/m2 LVLd ap4: 7.8 cm LAV(MOD-sp2): 34.5 ml EDV(MOD-sp4): 59.4 ml LAV(MOD-sp4): 24.2 ml EDV(sp4-el): 61.1 ml LVAs ap4: 14.5 cm2 LVLs ap4: 6.8 cm ESV(MOD-sp4): 27.0 ml ESV(sp4-el): 26.3 ml EF(MOD-sp4): 54.5 % EF(sp4-el): 56.9 % LVAd ap2: 16.8 cm2 SV(MOD-sp4): 32.4 ml SV(MOD-sp2): 18.6 ml LVLd ap2: 6.6 cm SI(MOD-sp4): 14.4 ml/m2 SI(MOD-sp2): 8.3 ml/m2 EDV(MOD-sp2): 36.8 ml EDV(sp2-el): 36.4 ml LVAs ap2: 10.8 cm2 LVLs ap2: 5.3 cm ESV(MOD-sp2): 18.1 ml ESV(sp2-el): 18.7 ml EF(MOD-sp2): 50.6 % SV(sp4-el): 34.7 ml Ao sinus diam: 3.[address] Junction: 2.7 cm LA dimension(2D): 3.7 cm LA A4 area: 12.1 cm2 RA A4 area: 11.0 cm2 TAPSE: 1.7 cm Time Measurements MV dec time: 0.13 sec Doppler Measurements & Calculations MV E max pierre: 58.2 cm/sec Lat Peak E' Pierre: 13.9 cm/sec Med Peak E' Pierre: 14.6 cm/sec E/E' lat: 4.2 E/E' med: 4.0 Ao V2 max: 92.9 cm/sec LV V1 max: 68.6 cm/sec SV(LVOT): 43.9 ml Ao max P.5 mmHg LV V1 max P.9 mmHg Ao V2 mean: 66.3 cm/sec LV V1 mean P.1 mmHg Ao mean P.9 mmHg LV V1 mean: 51.8 cm/sec Ao V2 VTI: 13.9 cm LV V1 VTI: 10.7 cm AV (velocity ratio): 0.77 BERNARD(I,D): 3.2 cm2 BERNARD(V,D): 3.0 cm2 PA V2 max: 78.2 cm/sec TR max pierre: 176.1 cm/sec TR max P.4 mmHg ECHO/Echo Complete Interpretation Summary The estimated ejection fraction is 55-60 %. Normal LV systolic function No significant valvular abnormality Ordering Physician: Tina Olvera Performed By: Anjelica Nixon RDCS
--- NOTE | 2024-01-01 14:49 | CON.PCM.CA_ITS ---
Assessment & Plan Assessment/Plan (1) Atrial fibrillation with RVR: PLAN: 43-year-old patient With history of paroxysmal atrial fibrillation Seen here at [facility]/cardiology team in 2019 diagnosed with A-fib with RVR And started on anticoagulation at that time with Xarelto in addition to calcium channel norma. He been doing well over the last 4 years. Last night he had symptoms of palpitation lightheadedness and dizziness. And he came in to the ER today as his symptoms continue to get worse by time he came into the ER his heart rate within the range of around 140s with A-fib and RVR Patient has been seen before by Dr. Farley, for A-fib and RVR start him on anticoagulation with Xarelto as well as rate control using calcium channel norma. Cardiac care plan recommendations; I recommended to admit him at the progressive care unit Will start on heparin drip in addition to amiodarone. If he does not convert to sinus rhythm we will plan for RODERICK guided cardioversion in the morning. As well will repeat an echocardiogram to assess his LV systolic function Annual follow-up clinically. Patient is active does not have any other medical problems. Patient has been stable clinically blood pressure oxygen saturation within normal I reviewed the lab result his hemoglobin is 17.3 hematocrit 49.7 and platelet count 426 is potassium is 4.0 with a creatinine of 1.2 he does not have any active symptoms of chest pain. I did discuss with him the long-term management based on [id number] score his risk is low for stroke Patient had a history of obstructive sleep apnea and he has been on CPAP. Patient has no history of diabetes no history of hypertension does not have a history of stroke. Therefore recommendation would be just to start on the IV amiodarone in addition to heparin and try to convert him to sinus rhythm Long-term cardiac care plan will include to discuss possible A-fib ablation if he had any further recurrence. Will evaluate by echocardiogram to assess his LV function. HPI Consult Data Date of Consult: 01/01/24 HPI Narrative Reason for Consultation: A-fib with RVR HPI Narrative: ALMA SANTOS, is a 43 M who presents [facility] Medical History (Updated 01/01/24 @ 12:[address] Stef Antunez, DO) Atrial fibrillation Home Medications ?Medication ?Instructions ?Recorded ?Last Taken ?Type multivitamin (Daily Multi-Vitamin 1 tab PO DAILY 01/01/24 Unknown History tablet) Allergy/AdvReac Type Severity Reaction Status Date / Time penicillin G AdvReac Hives Verified 01/01/24 10:48 sulfamethoxazole (From AdvReac Hives Verified 01/01/24 10:48 Bactrim) trimethoprim (From Bactrim) AdvReac Hives Verified 01/01/24 10:48 Social History Smoking Status: Never smoker Physical Exam Cardio Cardio Narrative: Patient seen and evaluated in the ED Family at bedside his His cardiac technologist showed A-fib with RVR Cardiac exam S1-S2 is irregular Chest exam is clear to auscultation bilateral Examination lower extremity no lower extremity edema Pedal pulses palpable. Risk Stratification Risk Stratification Applicable: No Objective Data Vital Signs: Vital Signs Temp Pulse Resp BP Pulse Ox O2 Del Method 96.2 F L 97 17 116/66 96 Room Air 01/01/24 14:05 01/01/24 14:45 01/01/24 14:45 01/01/24 14:45 01/01/24 14:45 01/01/24 14:45 Oxygen Delivery Method Room Air Weight: 233 lb Body Mass Index (BMI) 32.5 Intake & Output: Intake and Output for Last 24 Hours 12/30/23 12/31/23 01/01/24 23:59 23:59 23:59 Intake Total 132.61 / 132.61 Balance 132.61 / 132.61 Lab / Micro Data 01/01/24 11:05 01/01/24 11:05 Labs: Laboratory Results - last 24 hr 01/01/24 11:05: WBC 7.5, RBC 5.74, Hgb 17.3 H, Hct 49.7, MCV 86.6, MCH 30.1, MCHC 34.8, RDW Std Deviation 39.7, RDW Coeff of Joey 12.7, Plt Count 426, MPV 8.9, Immature Gran % (Auto) 0.300, Neut % (Auto) 44.3 L, Lymph % (Auto) 43.2 H, [place] % (Auto) 10.4 H, Eos % (Auto) 1.3, Baso % (Auto) 0.5, Absolute Neuts (auto) 3.3, Absolute Lymphs (auto) 3.23, Nucleated RBC % 0, PT 13.5, INR 1.0, APTT 34.9, Sodium 139, Potassium 4.0, Chloride 108 H, Carbon Dioxide 26.0, Anion Gap 5, BUN 17, Creatinine 1.20, Estim Creat Clear Calc 100.21, Est GFR (MDRD) Af Amer 86, Est GFR (MDRD) Non-Af 71, BUN/Creatinine Ratio 14.2, Glucose 94, Calcium 9.2, Magnesium 2.2, Total Bilirubin 1.00, Direct Bilirubin 0.22, AST 30, ALT 35, Alkaline Phosphatase 79, Troponin I High Sens 7, Total Protein 7.8, Albumin 4.3, Globulin 3.5, TSH 2.430 Cardiology Labs/Tests 01/01/24 11:05: WBC 7.5, RBC 5.74, Hgb 17.3 H, Hct 49.7, MCV 86.6, MCH 30.1, MCHC 34.8, Plt Count 426, MPV 8.9, Immature Gran % (Auto) 0.300, Neut % (Auto) 44.3 L, Lymph % (Auto) 43.2 H, [place] % (Auto) 10.4 H, Eos % (Auto) 1.3, Baso % (Auto) 0.5, Absolute Neuts (auto) 3.3, Nucleated RBC % 0, PT 13.5, INR 1.0, APTT 34.9, Sodium 139, Potassium 4.0, Chloride 108 H, Carbon Dioxide 26.0, Anion Gap 5, BUN 17, Creatinine 1.20, Est GFR (MDRD) Af Amer 86, Est GFR (MDRD) Non-Af 71, BUN/Creatinine Ratio 14.2, Glucose 94, Calcium 9.2, Magnesium 2.2, Total Bilirubin 1.00, Direct Bilirubin 0.22 Rhythm: EKG: ECHO: Stress Test: Cardiac Cath: PCI: CT Surgery: Holter monitor: EPS: PPM: CXR: Chest CT Scan: Radiography Diagnostic Testing: Radiology Impression Chest X-Ray 01/01/24 10:58 IMPRESSION: Normal x-ray examination of the chest. Electronically Signed: Roberto Ramirez MD at 11:29 EST ,
[2024-01-01 15:55] LABS: Magnesium 2.2 mg/dL (1.6-2.6)
[2024-01-01] MEDS: Amiodarone 360 MG in Dextrose 5% Viaflo Bag 192.8 ML 16.7 MG CONT INF (19:47)
[2024-01-01 20:24] LABS: Partial Thromboplast Time > 200.0 Seconds (24.1-36.2)
[2024-01-02] VITALS (22 sets, daily range): BP systolic 92–125; BP diastolic 49–96; PULSE 59–103; RESP 10–18; TEMP 36.5; O2SAT 94–100
[2024-01-02 05:05] LABS: Absolute Neutrophil Count 3.5 X10^3/uL (2.0-7.7); Basophil# 0.04 X10^3/uL; Basophil% 0.6 % (0-1); Eosinophil# 0.12 X10^3/uL; Eosinophils% 1.9 % (0-5); Hematocrit 46.9 % (40-54); Hemoglobin 16.7 g/dL (13.0-16.5); Lymphocyte % 34.3 % (19-41); Mean Corp Hgb Conc 35.6 g/dL (32-36); Mean Corpuscular Hgb 30.6 pg (27.0-32.0); Mean Corpuscular Volume 85.9 fL (80-94); Monocyte# 0.52 X10^3/uL; Monocyte% 8.1 % (0-10); NRBC Flagged by Analyzer 0 % (0-5); Neutrophil # 3.51 X10^3/uL (2.7-7.7); Neutrophil % 54.8 % (47-70); Platelet Count 344 K/mm3 (150-450); RBC Distribution Width CV 13.2 % (11.6-14.6); RBC Distribution Width SD 40.6 fl (35.1-43.9); Red Blood Count 5.46 M/mm3 (4.6-6.2); White Blood Count 6.4 K/mm3 (4.4-11.0)
[2024-01-02 05:41] LABS: Anion Gap 6 (5-15); BUN 14 mg/dL (7-18); BUN/Creat Ratio 12.8 RATIO (10-20); Calcium,Total 8.6 mg/dL (8.5-10.1); Chloride 108 mmol/L (98-107); Cholesterol 218 mg/dL (200); Creatinine, Serum 1.09 mg/dL (0.70-1.30); EST Glomerular Filtration Rate 79 mL/min (>60); Est Glom Filt Rate - Afr Amer 96 mL/min (>60); Estimated Creatinine Clearance 109.72 ml/min; Glucose 103 mg/dL (74-106); High Density Lipoprotein 67 mg/dL; Magnesium 2.4 mg/dL (1.6-2.6); Potassium 3.6 mmol/L (3.5-5.1); Sodium Level 138 mmol/L (136-145); Triglycerides 110 mg/dL; Very Low Density Lipoprotein 22 mg/dL (5-40)
[2024-01-02 05:43] LABS: Prothrombin Time (Protime)PT. 13.5 SECONDS (11.7-14.9)
--- NOTE | 2024-01-02 05:55 | EKG12_ITS ---
Test Reason : PRE-CARDIOVERSION Blood Pressure : */* mmHG Vent. Rate : 87 BPM Atrial Rate : * BPM P-R Int : * ms QRS Dur : 82 ms QT Int : 350 ms P-R-T Axes : * 65 39 degrees QTcB Int : 421 ms Atrial fibrillation Abnormal ECG When compared with ECG of 01-Jan-2024 10:43, MANUAL COMPARISON REQUIRED DATA IS UNCONFIRMED Confirmed by JUAN JOSÉ CORDOBA ([id number]), editor managing director MAGEN ERWIN ([id number]) on 01/05/2024 6:13:14 AM Referred By: Confirmed By: JUAN JOSÉ CORDOBA
[2024-01-02] MEDS: Amiodarone 360 MG in Dextrose 5% Viaflo Bag 192.8 ML 16.7 MG CONT INF (07:44)
--- NOTE | 2024-01-02 09:53 | EKG12_ITS ---
Test Reason : Blood Pressure : */* mmHG Vent. Rate : 61 BPM Atrial Rate : 61 BPM P-R Int : 124 ms QRS Dur : 94 ms QT Int : 408 ms P-R-T Axes : 45 34 24 degrees QTcB Int : 410 ms Normal sinus rhythm Normal ECG When compared with ECG of 02-Jan-2024 06:10, MANUAL COMPARISON REQUIRED DATA IS UNCONFIRMED Confirmed by JUAN JOSÉ CORDOBA ([id number]), editor magazine MAGEN ERWIN ([id number]) on 01/05/2024 6:16:38 AM Referred By: MIN Confirmed By: JUAN JOSÉ CORDOBA
--- NOTE | 2024-01-02 09:54 | ECHOTEE_ITS ---
Reason For Study: afib Medication RODERICK probe 6VT-D (SN [id number]) passed without difficulty. No complications were noted. Cetacaine Topical [place] given X3 orally. Performed a rapid injection of agitated mix of 9 cc saline and 1cc air to assess for atrial septal defect. 120mg Propofol. Left Ventricle Normal LV size. The estimated ejection fraction is 55 %. Right Ventricle Normal right ventricle. Atria Bubble contrast study negative for right to left interatrial shunt. Normal left atrium. No thrombus is detected in the left atrial appendage. Normal right atrium. Mitral Valve The mitral valve is structurally normal. No prolapse or stenosis seen. Tricuspid Valve Normal tricuspid valve. Aortic Valve Normal aortic valve. Pulmonic Valve The pulmonic valve is not well visualized. Vessels Normal ascending aorta. Pericardium No pericardial effusion. ECHO/Echo Transesophageal (RODERICK) Interpretation Summary RODERICK/transesophageal echo report; The estimated ejection fraction is 55 %. No thrombus is detected in the left atrial appendage. Bubble contrast study negative for right to left interatrial shunt. Structually normal valves. Ordering Physician: Kiran King Referring Physician: CHERYL SIERRA Performed By: Amber Kearney RCS
--- NOTE | 2024-01-02 11:05 | CARDIOVERS_ITS ---
Cardioversion Cardioversion: CONSCIOUS SEDATION REPORT DATE OF SERVICE: January 02, 2024 BRIEF HISTORY OF PRESENT ILLNESS: The patient is a 43-year-old male, currently admitted to [facility], with atrial fibrillation with RVR. The patient was seen in consultation by cardiology. Surface echocardiogram completed yesterday demonstrated an ejection fraction of 55 to 60%. The patient denied any prior anesthetic complications. He has no pre-existing lung conditions. I was asked to provide conscious sedation for the patient during his RODERICK this morning, followed by cardioversion by Dr. King. PHYSICAL EXAMINATION: VITAL SIGNS: Reviewed and were acceptable. GENERAL: The patient is an obese male, in no apparent distress, speaking in full sentences. HEENT: Normocephalic, atraumatic. Mucous membranes are moist and pink. Good mouth opening noted. Trachea is midline. Good neck mobility. CHEST: S1, S2 irregularly irregular. No murmurs, rubs or gallops were noted. LUNGS: Clear to auscultation bilaterally without appreciable wheezes, rales or rhonchi. ABDOMEN: Soft, nontender, nondistended. Positive bowel sounds. EXTREMITIES: There is no clubbing, cyanosis or edema. ASA Class: II DESCRIPTION OF PROCEDURE: After confirmation of informed consent, the patient's anesthesia plan was reviewed in detail. Propofol was chosen. Risks and benefits were reviewed and the patient agreed to proceed. At 1041, the patient was given his first bolus of propofol. In total, throughout the entire procedure, including transesophageal echocardiogram and cardioversion, the patient required 120 mg of propofol to achieve and maintain an appropriate level of sedation. The patient did ultimately receive a 200 J synchronized cardioversion by Dr. King at the bedside. This was successful in achieving normal sinus rhythm. The patient was monitored until 1056, at which time, he reached his baseline mental status and function. The patient tolerated the procedure well. COMPLICATIONS: None ESTIMATED BLOOD LOSS: None RECOMMENDATIONS: Okay to recover in usual fashion. Procedures Pulmonary Pulmonary Procedures /Diagnostic Testin Con Sedation
--- NOTE | 2024-01-02 11:23 | PCM.PN.CARD ---
Subjective Subjective Patient underwent RODERICK guided Synchronized cardioversion successfully converted to normal sinus rhythm using 200 biphasic joules Post cardioversion stable Objective Data Vital Signs: Vital Signs Temp Pulse Resp BP Pulse Ox O2 Del Method 97.7 F L 9 L 18 108/90 H 97 Room Air 01/02/24 08:30 01/02/24 10:00 01/02/24 10:00 01/02/24 10:00 01/02/24 10:00 01/02/24 10:00 Oxygen Delivery Method Room Air Weight: 230 lb 6.129 oz Body Mass Index (BMI) 32.1 Intake & Output: Intake and Output for Last 24 Hours 12/31/23 01/01/24 01/02/24 23:59 23:59 23:59 Intake Total 1125.37 / 1142.07 280.10 / 280.10 Balance 1125.37 / 1142.07 280.10 / 280.10 Lab / Micro Data 01/02/24 04:50 01/02/24 04:50 Labs: Laboratory Results - last 24 hr 01/01/24 11:05: PT 13.5, INR 1.0, APTT 34.9, Sodium 139, Potassium 4.0, Chloride 108 H, Carbon Dioxide 26.0, Anion Gap 5, BUN 17, Creatinine 1.20, Estim Creat Clear Calc 100.21, Est GFR (MDRD) Af Amer 86, Est GFR (MDRD) Non-Af 71, BUN/Creatinine Ratio 14.2, Glucose 94, Calcium 9.2, Magnesium 2.2 01/01/24 11:05: Magnesium 2.2, Total Bilirubin 1.00, Direct Bilirubin 0.22, AST 30, ALT 35, Alkaline Phosphatase 79, Troponin I High Sens 7, Total Protein 7.8, Albumin 4.3, Globulin 3.5, TSH 2.430 01/01/24 19:15: APTT > 200.0 H* 01/02/24 04:50: WBC 6.4, RBC 5.46, Hgb 16.7 H, Hct 46.9, MCV 85.9, MCH 30.6, MCHC 35.6, RDW Std Deviation 40.6, RDW Coeff of Joey 13.2, Plt Count 344, MPV 9.0, Immature Gran % (Auto) 0.300, Neut % (Auto) 54.8, Lymph % (Auto) 34.3, [place] % (Auto) 8.1, Eos % (Auto) 1.9, Baso % (Auto) 0.6, Absolute Neuts (auto) 3.5, Absolute Lymphs (auto) 2.20, Nucleated RBC % 0, PT 13.5, INR 1.0, APTT 105.0 H*, Sodium 138, Potassium 3.6, Chloride 108 H, Carbon Dioxide 24.0, Anion Gap 6, BUN 14, Creatinine 1.09, Estim Creat Clear Calc 109.72, Est GFR (MDRD) Af Amer 96, Est GFR (MDRD) Non-Af 79, BUN/Creatinine Ratio 12.8, Glucose 103, Calcium 8.6, Magnesium 2.4, Triglycerides 110, Cholesterol 218 H, LDL Cholesterol 129, VLDL Cholesterol 22, HDL Cholesterol 67 Cardiology Labs/Tests 01/01/24 11:05: PT 13.5, INR 1.0, APTT 34.9, Sodium 139, Potassium 4.0, Chloride 108 H, Carbon Dioxide 26.0, Anion Gap 5, BUN 17, Creatinine 1.20, Est GFR (MDRD) Af Amer 86, Est GFR (MDRD) Non-Af 71, BUN/Creatinine Ratio 14.2, Glucose 94, Calcium 9.2, Magnesium 2.2 01/01/24 11:05: Magnesium 2.2, Total Bilirubin 1.00, Direct Bilirubin 0.22 01/01/24 19:15: APTT > 200.0 H* 01/02/24 04:50: WBC 6.4, RBC 5.46, Hgb 16.7 H, Hct 46.9, MCV 85.9, MCH 30.6, MCHC 35.6, Plt Count 344, MPV 9.0, Immature Gran % (Auto) 0.300, Neut % (Auto) 54.8, Lymph % (Auto) 34.3, [place] % (Auto) 8.1, Eos % (Auto) 1.9, Baso % (Auto) 0.6, Absolute Neuts (auto) 3.5, Nucleated RBC % 0, PT 13.5, INR 1.0, APTT 105.0 H*, Sodium 138, Potassium 3.6, Chloride 108 H, Carbon Dioxide 24.0, Anion Gap 6, BUN 14, Creatinine 1.09, Est GFR (MDRD) Af Amer 96, Est GFR (MDRD) Non-Af 79, BUN/Creatinine Ratio 12.8, Glucose 103, Calcium 8.6, Magnesium 2.4, Triglycerides 110, Cholesterol 218 H, LDL Cholesterol 129, VLDL Cholesterol 22, HDL Cholesterol 67 Rhythm: EKG: ECHO: Stress Test: Cardiac Cath: PCI: CT Surgery: Holter monitor: EPS: PPM: CXR: Chest CT Scan: Radiography Diagnostic Testing: Radiology Impression Chest X-Ray 01/01/24 10:58 IMPRESSION: Normal x-ray examination of the chest. Electronically Signed: Roberto Ramirez MD at 11:29 EST , Echocardiogram 01/01/24 14:44 Interpretation Summary The estimated ejection fraction is 55-60 %. Normal LV systolic function No significant valvular abnormality Ordering Physician: Tina Olvera Performed By: Anjelica Nixon ROHIT Physical Exam Cardio Cardio Narrative: Cardiac rhythm post cardioversion sinus rhythm Cardiac exam S1-S2 regular Chest exam clear to auscultation bilateral. Lamination of lower extremity no lower extremity edema. Pedal pulses palpable Assessment & Plan Assessment/Plan (1) Atrial fibrillation with RVR: PLAN: Plan 43-year-old patient with history of paroxysmal atrial fibrillation This was diagnosed [address] Farley Patient was started on treatment with Xarelto and has synchronized cardioversion in 2019 On this presentation he had palpitation lightheadedness dizziness and symptoms shortness of breath. Patient had history of NASIM. He presented to the ED complaining of symptoms of palpitation noted he had an A-fib with RVR Started on treatment with IV heparin as well as IV amiodarone Still was in A-fib this morning Therefore we will proceed with a RODERICK guided synchronized cardioversion/DCCV Using biphasic 200 J converted to regular sinus rhythm And was stable hemodynamically. Cardiac care plan recommendations; I recommended to start him on amiodarone p.o. 400 mg twice daily for 3 days Then 200 mg twice daily for 1 week 3. I also did explain the long-term side effects of amiodarone due to risk of pulmonary fibrosis which is irreversible Patient need to be followed by the EP at [facility] and to discuss long-term treatment with regulatory intern Possible plan of A-fib ablation if he had further recurrence. From cardiac standpoint patient can be discharged home. Based on [id number] score his risk of stroke is less therefore we will plan for outpatient follow-up to discuss further plan.
--- NOTE | 2024-01-02 11:45 | CASEMGMT ---
RN ANJELICA TYPING POOL SUPERVISOR ANJELICA?to room to meet with patient for initial transition planning/care coordination assessment. RN ANJELICA?introduced self and role at [facility]. Pt voices understanding and consents to assessment?at this time. Pt resting in bed in no distress at this time. @ bedside. Pt is A/O at this time and answers all questions appropriately. Care providers, pharmacy, and demographics verified/updated at this time. Strata:?1 PCP: CALE García in [place] Specialists: [facility] and states plans to go back there again for follow-up from this hospitalization. Pt states goes to polls or surveys interviewer/[place] for f/u re: CPAP. Preferred Pharmacy: [facility] Insurance: [employer] Prescription Benefit: Yes, [employer]. Pt has been on Xarelto in the past. Pt and both unsure if he has used 30-day savings card in the past, but states his insurance covered well for it, as he does not remember having to pay much for it. Pt and provided w/Xarelto 30-day savings card and made aware could use it, if desired when picking up medication. Instructed on use and registration of card, and made aware it is a wlzl-[id number]-lifetime use card. Also made aware, to discuss any concerns of cost w/cake icer and packer. Living Will/HPOA: Pt does not currently have LW/HCPOA. LNOK: Felicia Living Arrangements: Lives w/ and 4 children (ages 3-10) in split-level home. Independent. Transportation:?Pt and both drive. DME: CPAP HHC/SNF: No hx. No needs identified. Pt wishes to return home and states has no concerns with going home at time of discharge. PLAN: Home Pt and have been provided w/Xarelto savings card. Aurea FIELDS RN, CM
--- NOTE | 2024-01-02 13:16 | DCINST_ITS ---
Discharge Instructions Diet Discharge Diet: Light diet - advance as tolerated Activity Discharge Activity: - (Do not drive or operate heavy machinery for 24 hours) Follow Up Care Test Results: Test results from this visit will be discussed in further detail at your follow- up appointment, if applicable. Discharge Plan Admission Admit Date/Time: 01/01/24 14:17 Primary Reason for Your Visit: Afib rvr Attending Provider: Tina Olvera Primary Care Provider: Castro García NP Consulting Providers: Kiran King Instructions Patient Instructions: AFib Additional Instructions / Restrictions: DISCHARGE INSTRUCTIONS PLEASE READ *Please take this with you to your next doctors appointment* -You will need to start amiodarone 400 mg twice daily which you will take tonight and for 3 more days and then 200 mg twice daily for 1 week -Please follow-up with cardiology upon discharge. If you do not hear from the office within 1-2 business days regarding scheduling please call their office to inquire about hospital follow-up. Referral to an EP doctor will occur through their office -It is strongly advised that you continue to maintain compliance with your CPAP -Please call your primary care provider's office upon discharge to schedule a hospital follow up within 1 week. -For any concerning signs or symptoms please call 911 or proceed to the nearest emergency department Discharge Orders/Prescriptions Prescriptions: New amiodarone 200 mg tablet See Rx Instructions .ROUTE .COMPLEX 10 Days Qty: 28 0RF Rx Instructions: 400mg tonight and BID x3 day then 200mg BID x7 days Continued multivitamin [Daily Multi-Vitamin] Tablet 1 tab PO DAILY Referrals / Follow Up: [facility] [Provider Group] ( -Please follow-up with cardiology upon discharge. Please call their office to schedule hospital follow-up appointment upon discharge.) Castro García NP, CHIEF ENGINEER PRODUCTION-[employer] [Primary Care Provider] - Within 1 Week Disposition Disposition (needs filled in before D/C Order can be placed): Home, Self Care
--- NOTE | 2024-01-02 13:17 | PCM.DC.SUM ---
Providers Date of Admission: 01/01/24 Date of Discharge: 01/02/24 Primary Care Physician: YESICA Bauer Consultations 01/01/24 14:44 Consult: Cardiology Routine Consulting Provider: Kiran King Reason for Consult: symptomatic afib, here w/ RVR EMERGENT Consult: No MD Notified: Yes Date Notified: 01/01/24 Time Notified: 14:24 Method of Notification: ED Physician Initiated Reason For Visit: AFIB, RVR Diagnosis Discharge Diagnosis (1) Atrial fibrillation with RVR: Status: Acute Code(s): I48.91 - Unspecified atrial fibrillation Plan # A-fib with RVR- resolved #NASIM- on cpap #Hx adhd- no longer medicated Medications at Discharge Home Medications multivitamin (Daily Multi-Vitamin tablet) 1 tab PO DAILY vitamin 01/01/24 amiodarone 200 mg tablet See Rx Instructions .Route .COMPLEX #49 tabs 01/02/24 rivaroxaban 20 mg tablet (Xarelto) 20 mg PO DAILY #30 tabs 01/02/24 Hospital Course Procedures - (RODERICK cardioversion 01/02/24) Summary of Care Provided Minutes Spent on Discharge: 35 Hospital Course: Per HPI: ALMA SANTOS, is a 43-year-old male past medical history of A-fib presented [facility] ED 01/01/2024 for palpitations. At 11:30 PM last night he began to feel an irregular heartbeat and in the past it is resolved by the time he woke up in the morning however today it continued to be irregular and he developed some chest tightness with this prompting him to come to the emergency department. Had no significant dyspnea or overt chest pain but was found to be in A-fib with RVR. Cardiology contacted and recommended heparin and Cardizem, he was then evaluated by cardiology and they recommended Amio and hospital admission and they will see him in consultation. of note patient does have history of A-fib and was cardioverted in 2019 and took medication for a year and then was taken off of it. He had no further episodes until last night so he is not presently on medication. Hospitalist contacted for admission. Patient evaluated at bedside. He reports history as above, has not had any recent problems with palpitations until last night, today when he could feel his heart racing he was intermittently lightheaded with some chest tightness and shortness of breath, the symptoms have resolved since rate has gotten under control but he is still acutely aware that his heart rate is out of rhythm. Does report compliance with his CPAP, occasionally will miss a day but overall does wear this. He reports he will usually drink coffee or pop daily but does not drink energy drinks, he started medication for ADHD but is no longer on them. Does have some difficulty with sleeping and has poor sleep due to his work and work hours but otherwise has no new or acute complaints. Patient denies any significant alcohol use, no substance use, no tobacco use INTERVAL HISTORY: Patient remained in A-fib and symptomatic despite amiodarone overnight so patient had RODERICK cardioversion 01/02/[address] King which was successful with return to normal sinus rhythm. Was advised patient okay to DC home on 400 twice daily Amio x 3 days followed by 200 twice daily for another week and he will need to follow-up with EP on an outpatient basis which will be coordinated through the cardiology office. Patient evaluated after cardioversion and he reports feeling much better, no chest pain or shortness of breath, no other new or acute complaints. Initial cardiology discharge instructions from progress note were included in patient's initial discharge instructions however there were updated recommendations for amiodarone course for 1 month as well as Xarelto for 1 month. Confirmed these were the appropriate discharge instructions. Discharge instructions updated. Discharge instructions follow: -You will need to start amiodarone 400 mg twice daily which you will take tonight and for 3 more days and then 200 mg twice daily for 1 week and then once daily for an additional 3 weeks -You will also be discharged on 1 month of Xarelto -Please follow-up with cardiology upon discharge. If you do not hear from the office within 1-2 business days regarding scheduling please call their office to inquire about hospital follow-up. Referral to an EP doctor will occur through their office -It is strongly advised that you continue to maintain compliance with your CPAP -Please call your primary care provider's office upon discharge to schedule a hospital follow up within 1 week. -For any concerning signs or symptoms please call 911 or proceed to the nearest emergency department Physical Exam Narrative General: Alert, oriented, no apparent distress HEENT: Atraumatic, normocephalic Eyes: Anicteric, normal conjunctiva, extraocular movements grossly intact Neck: Supple Respiratory: Clear to auscultation bilaterally, normal respiratory effort Cardiovascular: Regular rate and rhythm-postcardioversion GI: Soft, nontender, nondistended Extremities: No edema Musculoskeletal: Moving all extremities Neuro: No overt focal neurological deficits Skin: No rashes appreciated Psych: Cooperative Weight / BMI Weight Weight: 104.5 kg Body Mass Index (BMI) 32.1 ABG / Lab / Microbiology Data 01/02/24 04:50 01/02/24 04:50 Laboratory: Laboratory Results - last 24 hr 01/01/24 11:05: Magnesium 2.2 01/01/24 19:15: APTT > 200.0 H* 01/02/24 04:50: WBC 6.4, RBC 5.46, Hgb 16.7 H, Hct 46.9, MCV 85.9, MCH 30.6, MCHC 35.6, RDW Std Deviation 40.6, RDW Coeff of Joey 13.2, Plt Count 344, MPV 9.0, Immature Gran % (Auto) 0.300, Neut % (Auto) 54.8, Lymph % (Auto) 34.3, [place] % (Auto) 8.1, Eos % (Auto) 1.9, Baso % (Auto) 0.6, Absolute Neuts (auto) 3.5, Absolute Lymphs (auto) 2.20, Nucleated RBC % 0, PT 13.5, INR 1.0, APTT 105.0 H*, Sodium 138, Potassium 3.6, Chloride 108 H, Carbon Dioxide 24.0, Anion Gap 6, BUN 14, Creatinine 1.09, Estim Creat Clear Calc 109.72, Est GFR (MDRD) Af Amer 96, Est GFR (MDRD) Non-Af 79, BUN/Creatinine Ratio 12.8, Glucose 103, Calcium 8.6, Magnesium 2.4, Triglycerides 110, Cholesterol 218 H, LDL Cholesterol 129, VLDL Cholesterol 22, HDL Cholesterol 67 Radiography Diagnostic Testing: Radiology Impression Echocardiogram 01/01/24 14:44 Interpretation Summary The estimated ejection fraction is 55-60 %. Normal LV systolic function No significant valvular abnormality Ordering Physician: Tina Olvera Performed By: Anjelica Nixno RDCS D/C Instructions Discharge Diet: Light diet - advance as tolerated DC O2, CPAP, BIPAP Needs Additional Home O2 Discharge instructions: No DC home with Oxygen: No Meaningful Use Info Meaningful Use Meaningful Use Diagnoses (Choose all that apply): None applicable Ischemic Stroke Statin Dosing Therapy Reference: STATIN DOSE THERAPY REFERENCE: * Patients > 75 years receive moderate or high dose statin therapy. * Patients 75 years or YOUNGER should receive HIGH intensity statin dose unless contraindicated. You will be required to document reason for non-treatment if statin daily dose does not meet guidelines. HIGH DOSE STATIN THERAPY DAILY Atorvastatin > than or = to 40 mg Rosuvastatin > than or = to 20 mg Amlodipine + Atorvastatin > than or = to 2.5/40 mg Ezetimibe + Simvastatin 10/80 mg Simvastatin 80mg Discharge Plan Admission Admit Date/Time: 01/01/24 14:17 Primary Reason for Your Visit: Afib rvr Attending Provider: Tina Olvera Primary Care Provider: Castro García NP Consulting Providers: Kiran King Instructions Patient Instructions: AFib Additional Instructions / Restrictions: DISCHARGE INSTRUCTIONS PLEASE READ *Please take this with you to your next doctors appointment* -You will need to start amiodarone 400 mg twice daily which you will take tonight and for 3 more days and then 200 mg twice daily for 1 week and then once daily for an additional 3 weeks -You will also be discharged on 1 month of Xarelto -Please follow-up with cardiology upon discharge. If you do not hear from the office within 1-2 business days regarding scheduling please call their office to inquire about hospital follow-up. Referral to an EP doctor will occur through their office -It is strongly advised that you continue to maintain compliance with your CPAP -Please call your primary care provider's office upon discharge to schedule a hospital follow up within 1 week. -For any concerning signs or symptoms please call 911 or proceed to the nearest emergency department Discharge Orders/Prescriptions Prescriptions: New amiodarone 200 mg tablet See Rx Instructions .ROUTE .COMPLEX Qty: 49 0RF Rx Instructions: 400mg tonight and BID x3 days, 200mg BID x7 days, 200mg qday for three weeks Xarelto 20 mg tablet 20 mg PO DAILY Qty: 30 0RF Rx Instructions: must administer with evening meal Continued multivitamin [Daily Multi-Vitamin] Tablet 1 tab PO DAILY Referrals / Follow Up: [facility] [Provider Group] ( -Please follow-up with cardiology upon discharge. Please call their office to schedule hospital follow-up appointment upon discharge.) Castro García BINDERY MACHINE OPERATOR, BINDERY MACHINE OPERATOR-C [Primary Care Provider] - Within 1 Week Disposition Disposition (needs filled in before D/C Order can be placed): Home, Self Care Charges/Coding Visit Charges Inpatient E&M: 52645 Disch Hosp >30min
[2024-01-02] MEDS: 0.9% Saline Lock 10 ML Syringe IV (14:15)
--- NOTE | 2024-01-02 14:18 | PHA.DC.MC.R ---
Pharmacy [facility] Pharm[facility] Service has performed discharge medication reconciliation and counseling for this patient. The patient's discharge medication list was reviewed for discrepancies and discrepancies were resolved. The patient was counseled on the following discharge medications and changes in medications for homegoing were reviewed. The Reason for Use, instructions for use, and potential side effects were reviewed for all new medications. The patient's questions regarding all of their medications were answered. 1. Amiodarone 200 mg tablet The patient was able to verbally demonstrate an understanding of their discharge medications. The patient was counselled on new medications by student support services director Castro. Medications at Discharge Home Medications multivitamin (Daily Multi-Vitamin tablet) 1 tab PO DAILY vitamin 01/01/24 amiodarone 200 mg tablet See Rx Instructions .Route .COMPLEX 10 days #28 tabs 01/02/24
--- NOTE | 2024-01-02 14:41 | CARDIOVERS ---
Cardioversion Cardioversion: RODERICK guided synchronized cardioversion/DCCV Indication; A-fib with RVR. Preprocedure diagnosis 43-year-old patient with history of A-fib Underwent synchronized cardio[place] [address] Farley And he was on anticoagulation with Xarelto Patient had symptoms of palpitation lightheadedness and dizziness and was seen in the ED at [facility] Where he had an A-fib with RVR. Started on treatment with heparin as well as amiodarone continued to be in A-fib and he was symptomatic. Based on this findings we will proceed with a RODERICK guided synchronized cardioversion Machine Sander Dr. Hannon provide anesthesia service We proceed with a RODERICK visualized left atrium as well as left atrial appendage with no evidence of thrombus Also will perform bubble study no evidence of intracardiac shunt. Following this we will proceed with synchronized cardioversion using 200 biphasic joules Patient successfully converted to sinus rhythm. Postprocedure patient remained stable hemodynamically maintaining normal sinus rhythm with no focal neurological deficit. Conclusion and recommendation; Successful RODERICK guided synchronized cardioversion with no complication. Patient to follow-up with the cardiology group for continuation of cardiac care and to be maintained on anticoagulation for 1 month Xarelto And then decide further plan Following up follow-up with the packing and shipping clerk Also to continue on amiodarone for 1 months 400 mg twice daily for 3 days then 200 mg twice daily for a week and then 200 mg daily. Dosing of medication will be determined in the follow-up with the cardiology team. Kiran King MD,FACC,[facility]
[2024-01-02 14:52] LABS: Partial Thromboplast Time 46.7 Seconds (24.1-36.2)
--- NOTE | 2024-01-02 15:04 | PCM.DC ---
Discharge Instructions Diet Discharge Diet: Light diet - advance as tolerated Activity Discharge Activity: - (Do not drive or operate heavy machinery for 24 hours) Follow Up Care Test Results: Test results from this visit will be discussed in further detail at your follow-up appointment, if applicable. Discharge Plan Admission Admit Date/Time: 01/01/24 14:17 Primary Reason for Your Visit: Afib rvr Attending Provider: Tina Olvera Primary Care Provider: Castro García NP Consulting Providers: Kiran King Instructions Patient Instructions: AFib Additional Instructions / Restrictions: DISCHARGE INSTRUCTIONS PLEASE READ *Please take this with you to your next doctors appointment* -You will need to start amiodarone 400 mg twice daily which you will take tonight and for 3 more days and then 200 mg twice daily for 1 week and then once daily for an additional 3 weeks -You will also be discharged on 1 month of Xarelto -Please follow-up with cardiology upon discharge. If you do not hear from the office within 1-2 business days regarding scheduling please call their office to inquire about hospital follow-up. Referral to an EP doctor will occur through their office -It is strongly advised that you continue to maintain compliance with your CPAP -Please call your primary care provider's office upon discharge to schedule a hospital follow up within 1 week. -For any concerning signs or symptoms please call 911 or proceed to the nearest emergency department Discharge Orders/Prescriptions Prescriptions: New amiodarone 200 mg tablet See Rx Instructions .ROUTE .COMPLEX Qty: 49 0RF Rx Instructions: 400mg tonight and BID x3 days, 200mg BID x7 days, 200mg qday for three weeks Xarelto 20 mg tablet 20 mg PO DAILY Qty: 30 0RF Rx Instructions: must administer with evening meal Continued multivitamin [Daily Multi-Vitamin] Tablet 1 tab PO DAILY Referrals / Follow Up: [facility] [Provider Group] ( -Please follow-up with cardiology upon discharge. Please call their office to schedule hospital follow-up appointment upon discharge.) Castro García NP, CLASSIFICATION ANALYST-C [Primary Care Provider] - Within 1 Week Disposition Disposition (needs filled in before D/C Order can be placed): Home, Self Care
== END 2024-01-02 15:48 | disposition home or self-care (01) ==
LOC: ED 12:48 → PCU 14:37
PROVIDERS: Admitting Provider Internal Medicine; Emergency Provider Emergency Medicine; PCP Nurse Practitioner Primary Care; Visit Provider Internal Medicine
DX: I48.0 Paroxysmal atrial fibrillation (principal); R07.89 Other chest pain; R00.2 Palpitations; G47.33 Obstructive sleep apnea (adult) (pediatric)
CPT/HCPCS: 36415; 71045; 80048; 80061; 80076; 83735; 84443; 84484; 85025; 85610; 85730; 93005; 93306; 93312; 93320; 93325; 96365; 96366; 96368; 96375; 96376; 99221; 99284; J7040; A4216; G0378

== ENCOUNTER 2025-02-09 16:10 | Emergency (ER) | payer BC, MEDICAID, SELFPAY ==
[2025-02-09] VITALS (15 sets, daily range): BP systolic 124–135; BP diastolic 65–85; PULSE 65–89; RESP 13–25; TEMP 36.6; O2SAT 94–100; BMI 31.5
--- NOTE | 2025-02-09 17:23 | EKG12_ITS ---
Test Reason : NEAR SYNCOPE Blood Pressure : */* mmHG Vent. Rate : 64 BPM Atrial Rate : 64 BPM P-R Int : 124 ms QRS Dur : 96 ms QT Int : 394 ms P-R-T Axes : 50 63 31 degrees QTcB Int : 406 ms Normal sinus rhythm Normal ECG Confirmed by Charlie Richardson ([id number]), pictures editor KAPIL ASHTON ([id number]) on 02/14/2025 9:11:48 AM Referred By: Confirmed By: Charlie Richardson
--- OUTSIDE RECORDS SUMMARY | 2025-02-09 17:31 | XMS RPT_ITS | CCD ---
Author Organization [facility] Care Team Providers Care Nitroglycerin Distributor Name Role Phone BALJANIA HOUSING SPECIALIST-KITCHEN MECHANIC, CHERYL Primary Care Physician [phone] BALTES HOUSING SPECIALIST-KITCHEN MECHANIC, CHERYL Attending Unavailabl e BALTES HOUSING SPECIALIST-KITCHEN MECHANIC, CHERYL Primary Care Unavailabl e BALTES HOUSING SPECIALIST-KITCHEN MECHANIC, CHERYL Attending Unavailabl e BALTES HOUSING SPECIALIST-KITCHEN MECHANIC, CHERYL Primary Care Unavailabl e Roof INSTRUCTIONAL TECHNOLOGY SPECIALIST, Jordy Romano Attending Unavailable Baltes INSTRUCTIONAL TECHNOLOGY SPECIALIST, Cheryl Referring Unavailable Baltes INSTRUCTIONAL TECHNOLOGY SPECIALIST, Cheryl Primary Care Unavailable Viktor INSTRUCTIONAL TECHNOLOGY SPECIALIST, Peggy Attending Unavailable Baltes INSTRUCTIONAL TECHNOLOGY SPECIALIST, Cheryl Referring Unavailable Baltes INSTRUCTIONAL TECHNOLOGY SPECIALIST, Cheryl Primary Care Unavailable Baltes INSTRUCTIONAL TECHNOLOGY SPECIALIST, Cheryl Primary Care Unavailable Olvera, Tina Admitting Unavailable Olvera, Tina Attending Unavailable Belal, Farouk Consulting Unavailable Olvera, Tina Admitting Unavailable Olvera, Tina Attending Unavailable Baltes INSTRUCTIONAL TECHNOLOGY SPECIALIST, Cheryl Primary Care Unavailable Olvera, Tina Consulting Unavailable Olvera, Tina Admitting Unavailable Belal, Farouk Attending Unavailable Baltes INSTRUCTIONAL TECHNOLOGY SPECIALIST, Cheryl Primary Care Unavailable Belal, Farouk Consulting Unavailable Olvera, Tina Consulting Unavailable Zaheer Hannon Attending Unavailable Olvera, Tina Referring Unavailable OlveraTina Attending Unavailable Baltes KITCHEN MECHANIC, Cheryl Primary Care Provider [phone] Roof HOUSING SPECIALIST.Jordy SCHAEFFER Unavailable SHERRI BROWN Admitting Unavailable SCHWSHERRI HAGER Attending Unavailable BALTES, CHERYL Primary Care Unavailable SHERRI BROWN Attending Unavailable JORDY PATE Referring Unavailable BALTES, CHERYL Primary Care Unavailable EDELMIRAT SHERRI Edy Referring Unavailable BALTES, CHERYL Primary Care Unavailable SCHWMILTONKERTSHERRI Referring Unavailable BALTES, CHERYL Primary Care Unavailable Allergies Allergy Classification Reported Allergen(s) Allergy Type Date of Onset Reaction(s) Facility (5 sources) Penicillin; Translations: [penicillin] Drug Allergy Unknown (qualifier value) [facility] (5 sources) Sulfamethoxazole / Trimethoprim; Translations: [sulfamethoxazole-tr imethoprim] Drug Allergy Weal (disorder) [facility] (3 sources) Penicillins; Translations: [PENICILLINS] Allergy to substance 10-28-19 Unknown [facility] Work Phone: (4 sources) Sulfamethoxazole; Translations: [SULFAMETHOXAZOLE] Drug Allergy 10-28-19 [facility] Work Phone: (4 sources) Trimethoprim; Translations: [TRIMETHOPRIM] Drug Allergy 10-28-19 [facility] Work Phone: (2 sources) Penicillin; Translations: [PENICILLIN G] Drug Allergy 02-18-19 [facility] (1 source) Penicillins Drug allergy (disorder) 02-18-19 [facility] (1 source) Sulfamethoxazole Drug Allergy 02-18-19 [facility] (1 source) Trimethoprim Drug Allergy 02-18-19 [facility] (2 sources) Penicillin G Drug Allergy 03-03-19 [facility] (1 source) Penicillins Drug Allergy 03-03-19 Unknown [facility] Medications Current Medications Medication Drug Class(es) Dates Sig (Normalized) Sig (Original) acetaminophen 500 mg oral tablet (4 sources) Start: 09-27-2021 acetaminophen 500 mg oral tablet Dose : 1,000 mg = 2 tab(s), Oral, TID, PRN pain or fever, 0 Refill(s) Start Date: 09/27/21 Status: Ordered azithromycin 250 mg oral tablet (1 source) Macrolide Antimicrobial Start: 02-01-2021 End: 02-06-2021 azithromycin 250 mg oral tablet Dose : 250 mg = 1 tab(s), Oral, qDay, 2 tabs on day one, then one tab daily, X 5 day(s), # 6 tab(s), 0 Refill(s), 02/06/21 10:27:00 EST, Pharmacy: [facility]/pharmacy #[id number], 177.8, cm, 02/01/21 9:24:00 EST, Height, 105.1, kg, 02/01/21 9:24:00 EST, Dosing Weight Start Date: 02/01/21 Stop Date: 02/06/21 Status: Ordered 24 hr buPROPion hydrochloride 300 mg extended release oral tablet (4 sources) Aminoketone Start: 03-29-2021 take 1 tablet by mouth every hour, then take 1 tablet by mouth every twenty-four hours Wellbutrin XL 300 mg/24 hours oral tablet, extended release Dose : 300 mg = 1 tab(s), Oral, q24h, # 90 tab(s), 1 Refill(s), Pharmacy: [facility]/pharmacy #[id number], Depression ADHD, 180, cm, 03/29/21 11:04:00 EST, Height, kg, 03/29/21 11:04:00 EST, Dosing Weight Start Date: 03/29/21 Status: Ordered Start: 09-21-2020 take 1 tablet by joelle th every hour, then take 1 tablet by mouth every twenty-four hours Wellbutrin XL 300 mg/24 hours oral tablet, extended release Dose : 300 mg = 1 tab(s), Oral, q24h, # 90 tab(s), 1 Refill(s), Pharmacy: [facility]/pharmacy #[id number], Depression ADHD, 177.8, cm, 09/21/20 10:59:00 EDT, Height, kg, 09/21/20 10:59:00 EDT, Dosing Weight Start Date: 09/21/20 Status: Ordered Start: 01-20-2020 End: 06-26-2020 take 150 mg by mouth once daily in the morning Bupropion Hcl Discontinued 150 MG PO EVERY MORNING January 20, 2020 1:00am June 26, 2020 4:15pm [facility] oral tablet (2 sources) Start: 03-29-2022 take 1 tablet by mouth once daily [facility] oral tablet Dose = 1 tab(s), Oral, qDay, 0 Refill(s) Start Date: 03/29/22 Status: Ordered cyclobenzaprine hydrochloride 10 mg oral tablet (1 source) Muscle Relaxant Start: 09-16-2023 cyclobenzaprine 10 mg oral tablet Dose : 10 mg = 1 tab(s), Oral, TID, PRN for spasm, # 30 tab(s), 0 Refill(s) Start Date: 09/16/23 Status: Ordered Dextromethorphan / Promethazine (1 source) Phenothiazine, Uncompetitive K-qpppyg-R-asparta te Receptor Antagonist, Sigma-1 Agonist Start: 02-01-2021 End: 02-08-2021 take 1 dose by mouth every six hours as needed for cough dextromethorphan-pro methazine 15 mg-6.25 mg/5 mL oral syrup Dose = 5 mL, Oral, q6h, PRN for cough, X 7 day(s), # 250 mL, 0 Refill(s), Pharmacy: [facility]/pharmacy #[id number], 177.8, cm, 02/01/21 9:24:00 EST, Height, kg, 02/01/21 9:24:00 EST, Dosing Weight Start Date: 02/01/21 Stop Date: 02/08/21 Status: Ordered guaiFENesin 600 mg oral tablet (1 source) Start: 02-01-2021 End: 02-11-2021 Mucinex 600 mg oral tablet, extended release Dose : 600 mg = 1 tab(s), Oral, q12h, X 10 day(s), # 20 tab(s), 0 Refill(s), 02/11/21 10:28:00 EST, Pharmacy: [facility]/pharmacy #[id number], 177.8, cm, 02/01/21 9:24:00 EST, Height, kg, 02/01/21 9:24:00 EST, Dosing Weight Start Date: 02/01/21 Stop Date: 02/11/21 Status: Ordered ibuprofen 200 mg oral tablet (4 sources) Nonsteroidal Anti-inflammatory Drug Start: 09-27-2021 ibuprofen 200 mg oral tablet Dose : 400 mg = 2 tab(s), Oral, q6hr, PRN pain or fever, 0 Refill(s) Start Date: 09/27/21 Status: Ordered multivit-min/ferrous fumarate (MULTI VITAMIN ORAL) (2 sources) multivit-min/iza esme fumarate (MULTI VITAMIN ORAL) Take by mouth once daily. Active predniSONE 50 mg oral tablet (1 source) Start: 02-01-2021 End: 02-06-2021 predniSONE 50 mg oral tablet Dose : 50 mg = 1 tab(s), Oral, qDayM, # 5 tab(s), 0 Refill(s), Pharmacy: [facility]/pharmacy #[id number], 177.8, cm, 02/01/21 9:24:00 EST, Height, kg, 02/01/21 9:24:00 EST, Dosing Weight Start Date: 02/01/21 Stop Date: 02/06/21 Status: Ordered Vitamin D3 1000 intl units (25 mcg) oral tablet (3 sources) Start: 06-20-2020 Vitamin D3 1000 intl units (25 mcg) oral tablet Dose : 1,000 unit(s) = 1 tab(s), Oral, Daily, not sure of dose, 0 Refill(s) Start Date: 06/20/20 Status: Ordered Completed/Discontinued Medications Medication Drug Class(es) Dates Sig (Normalized) Sig (Original) amiodarone hydrochloride 200 mg oral tablet (1 source) Antiarrhythmic Start: 01-02-2024 End: 04-07-2024 amiodarone (PACERONE) 200 mg tablet PLEASE SEE ATTACHED FOR DETAILED DIRECTIONS 01/02/2024 04/07/2024 Discontinued (Other) aspirin 81 mg delayed release oral tablet (3 sources) Platelet Aggregation Inhibitor, Nonsteroidal Anti-inflammatory Drug Start: 06-26-2020 End: 02-27-2021 Aspirin (Adult Low Dose Aspirin) 81 mg tablet,delayed release (DR/EC) Discontinued 81 MG PO DAILY June 26, 2020 12:00am February 27, 2021 12:14pm Start: 06-20-2020 aspirin 81 mg oral delayed release tablet Dose : 81 mg = 1 tab(s), Oral, qDay, 0 Refill(s) Start Date: 06/20/20 Status: Ordered Start: 02-28-2020 End: 06-26-2020 take 325 mg by mouth once daily Aspirin Discontinued 325 MG PO DAILY February 28, 2020 1:00am June 26, 2020 4:14pm 24 hr dilTIAZem hydrochloride 120 mg extended release oral capsule (2 sources) Calcium Channel Norma Start: 09-14-2019 End: 02-28-2020 take 120 mg by mouth once daily Diltiazem Hcl Discontinued 120 MG PO DAILY September 21, 2019 12:26pm February 28, 2020 10:50am meloxicam 15 mg oral tablet (1 source) Nonsteroidal Anti-inflammatory Drug Start: 08-29-2023 End: 09-28-2023 meloxicam 15 mg oral tablet Dose : 15 mg = 1 tab(s), Oral, qDay, # 30 tab(s), 0 Refill(s), Pharmacy: [facility]/pharmacy #[id number], 180.5, cm, 08/29/23 11:03:00 EDT, Height, kg, 08/29/23 11:03:00 EDT, Dosing Weight Start Date: 08/29/23 Stop Date: 09/28/23 Status: Ordered rivaroxaban 20 mg oral tablet (3 sources) Factor Xa Inhibitor Start: 01-30-2024 End: 04-07-2024 take 1 tablet by mouth once daily at bedtime XARELTO 20 mg tablet Take 20 mg by mouth daily at bedtime. 01/30/2024 04/07/2024 Discontinued (Other) Start: 09-14-2019 End: 02-28-2020 take 20 mg by mouth once daily Rivaroxaban Discontinue d 20 MG PO DAILY September 21, 2019 12:27pm February 28, 2020 10:50am Problems Active Problems Problem Classification Problem Date Documented Da te Episodic/Chronic Cardiac dysrhythmias (7 sources) Atrial fibrillation; Translations: [Unspecified atrial fibrillation] Onset: 01-15-2024 10-20-2019 Chronic Cardiac dysrhythmias (1 source) Palpitations; Translations: [Palpitations] Onset: 01-27-2024 Episodic Deficiency and other anemia (2 sources) Normocytic anemia 03-29-2022 Episodic Mood disorders (6 sources) Depression; Translations: [Depressive disorder] 09-26-2021 Chronic Other endocrine disorders (5 sources) Hypoglycemia 05-12-2020 Chronic Other lower respiratory disease (1 source) Dyspnea, unspecified; Translations: [Dyspnea, unspecified type] Onset: 12-13-2024 Episodic Other nutritional; endocrine; and metabolic disorders (1 source) Other obesity due to excess calories; Translations: [Other obesity due to excess calories] Onset: 05-05-2023 Chronic Other nutritional; endocrine; and metabolic disorders (1 source) Body mass index (BMI) 31.0-31.9, adult; Translations: [Body mass index [BMI] 31.0-31.9, adult] Onset: 05-05-2023 Chronic Other upper respiratory infections (3 sources) Acute sinusitis 02-01-2021 Episodic Residual codes; unclassified (9 sources) Obstructive sleep apnea syndrome; Translations: [Obstructive sleep apnea (adult) (pediatric)] 10-20-2019 Chronic Residual codes; unclassified (2 sources) Obstructive sleep apnea (adult) (pediatric); Translations: [Obstructive sleep apnea (adult) (pediatric)] Onset: 05-05-2023 Chronic Sprains and strains (1 source) Sprain of wrist; Translations: [Unspecified sprain of left wrist, initial encounter] Episodic Thyroid disorders (1 source) Hypothyroidism; Translations: [Hypothyroidism, unspecified] Chronic Unclassified (2 sources) Other persistent atrial fibrillation; Translations: [Other persistent atrial fibrillation (HCC)] Onset: 08-26-2024 Viral infection (3 sources) Viral disease 02-01-2021 Episodic Past or Other Problems Problem Classification Problem Date Documented Da te Episodic/Chronic Other aftercare (3 sources) Long-term current use of anticoagulant; Translations: [termite inspector (current) use of anticoagulants] Onset: 04-06-2024 04-06-2024 Episodic Other aftercare (2 sources) Long-term current use of drug therapy; Translations: [Other correction (current) drug therapy] Onset: 04-06-2024 Resolved: 04-06-2024 04-06-2024 Episodic Other aftercare (2 sources) Drug therapy finding; Translations: [Other intermodal dispatcher (current) drug therapy] Onset: 04-06-2024 Resolved: 04-06-2024 04-06-2024 Episodic Other aftercare (1 source) termite inspector (current) use of anticoagulants; Translations: [Anticoagulant long-term use] Onset: 04-06-2024 Episodic Residual codes; unclassified (4 sources) Other specified personal risk factors, not elsewhere classified; Translations: [Other specified personal history presenting hazards to health] Onset: 04-06-2024 04-07-2024 Episodic Results Test Name Value Interpretation Reference Range Facility ECHOon 12-13-2024 Echocardiography Echocardiography Report: Transthoracic Echo [facility] Date of service: 12/13/2024 1:55:12 [facility] Ordering physician: SHERRI BROWN Exam indication: Sustained atrial fibrillation Technologist: Leonila Bryan [facility] Interpreting physician: Charlie Luis MD PATIENT: Name: ALMA CHANG : 1980 Age: 44 years Gender: M History of arrhythmia. Previous cardiovascular interventions: Afib ablation (08/30/2024) Primary rhythm: sinus. Height: 180.30 cm BSA: 2.28 m Weight: 103.87 kg BMI: 32.0 kg/m Heart rate 63 bpm Blood pressure 121/69 mmHg Color Doppler was utilized to interrogate the cardiac valves assessed and spectral Doppler was utilized to determine the flow velocities and pressure gradients reported in this exam. MEASUREMENTS: Value Indexed Normal Max aortic dimension 2.8 cm Ao < 3.8 Left atrial volume 51 ml (Mistry's) 23 ml/m Boogie <= 34 LV ID (diastole) 5.4 cm (2D) 2.37 cm/m LV ID (systole) 3.6 cm (2D) 1.57 cm/m IVS, leaflet tips 1.0 cm (2D) Posterior wall thickness 1.0 cm (2D) Left ventricular mass 205 g (2D) 90 g/m LV stroke volume 51 ml (2D biplane) LV end diastolic volume 92 ml (2D biplane) 40.5 ml/m 34<=EDVi<75 LV end systolic volume 42 ml (2D biplane) 18.3 ml/m Ejection Fraction 55 % (2D biplane) EF > 52 FINDINGS: LEFT VENTRICLE The left ventricle is normal in size. There is no left ventricular hypertrophy. Left ventricular systolic function is normal. Left ventricular diastolic function was not evaluated due to inconsistent or technically suboptimal data. Mitral annular lateral E/e': 7.5. Wall Motion: All scored segments are normal. RIGHT VENTRICLE The right ventricle is normal in size. Right ventricular systolic function is normal. RV systolic tissue Doppler velocity is 9.8 cm/s. Tricuspid annular displacement is 2.7 cm. Estimated right ventricular systolic pressure is 23 mmHg consistent with normal pulmonary artery pressures. Estimated right atrial pressure is 3 mmHg based on IVC assessment. LEFT ATRIUM The left atrial cavity is normal in size. RIGHT ATRIUM The right atrial cavity is normal in size. Inferior Vena Cava: The inferior vena cava appears normal measuring 2.0 cm. The vessel decreases greater than 50 percent with inspiration. MITRAL VALVE There is trace mitral valve regurgitation. There is no thickening. The pressure half time is 73 msec. The peak mitral E/A ratio is 2.31. The average mitral E/e' ratio is 7.5. The mitral flow deceleration time is 251 msec. TRICUSPID VALVE The tricuspid valve leaflets are structurally normal. There is trace tricuspid valve regurgitation. AORTIC VALVE There is no aortic valve stenosis. There is no aortic valve regurgitation. Tricuspid aortic valve. There is no thickening. PULMONIC VALVE The pulmonic valve cusps are structurally normal. There is trace pulmonic valve regurgitation. AORTA The visualized aorta is normal in size. Measurements - Sinus: 2.8 cm. Mid ascending aorta 2.8 cm. Mid arch 2.7 cm. INTERATRIAL SEPTUM There is no evidence of intracardiac shunting as detected by Doppler. INTERVENTRICULAR SEPTUM There is no flow through the interventricular septum as detected by Doppler. PERICARDIUM There is no pericardial effusion. CONCLUSIONS: - Exam indication: Sustained atrial fibrillation - The left ventricle is normal in size. There is no left ventricular hypertrophy. Left ventricular systolic function is normal. EF = 55 5% (2D biplane) Left ventricular diastolic function was not evaluated due to inconsistent or technically suboptimal data. - The right ventricle is normal in size. Right ventricular systolic function is normal. - There are no significant valvular abnormalities. - The patient has not had a prior CC echocardiographic exam for comparison. * * * Final * * * [facility] : [id number] csSISUID Normal [facility] CNPJacquelin 11-10-2024 LAURYN Telephone (CARDAGHWW ) ALMA CHANG ([id number]) 1980 Date Time Provider Department 11/10/24 SHERRI BROWN CARDAGHWW During your visit today, we recorded the following information about you: Mily Carter LPN 11/10/2024 4:41 PM Signed Alma Chang called in and states would like to prescribe Dexmethylphenidate 90 days after his ablation. Patient states PCP wants 's ok prior to ordering. FREDA Vickers Robert A, MD 11/12/2024 8:37 PM Signed [facility] (EP) Being a stimulant might have impact on his heart rhythm but if the ablation procedure was effective the risk might be very low. So probably ok to try. Sherri Brown MD November 12, 2024 8:37 PM Mily Carter LPN 11/16/2024 9:08 AM Signed Left message for Alma Chang to call [facility] for update and recommendations. [facility] phone number provided. FREDA Vickers Stacey, RN 11/16/2024 9:34 AM Signed Spoke with pt. Notified of Dr Brown's message and recommendation. Pt voices understanding. Eboni Duvall RN Allergies As of Date: 11/10/2024 Noted Allergy Reaction PENICILLIN G 03/03/2024 4 - Hives Comments: Adverse Reaction PENICILLINS 03/03/2024 16 - Unknown SULFAMETHOXAZOLE 03/03/2024 4 - Hives TRIMETHOPRIM 03/03/2024 4 - Hives Date Reviewed: 08/30/2024 Reviewed by: Sherri Brown MD - Fully Assessed Reason for Visit: Patient Question [1477] Prescriptions as of 11/16/2024 - rivaroxaban (XARELTO) 20 mg tablet Take 20 mg by mouth once daily. - buPROPion XL (WELLBUTRIN XL) 150 mg 24 hr tablet Take 150 mg by mouth once daily. - cyclobenzaprine (FLEXERIL) 10 mg tablet Take 10 mg by mouth three times a day as needed for muscle spasm. - multivit-min/ferrous fumarate (MULTI VITAMIN ORAL) Take by mouth once daily. 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 of amiodarone [Z79.899] 04/06/2024 04/06/2024 At risk for stroke [Z91.89] 04/06/2024 Anticoagulant long-term use [Z79.01] 04/06/2024 Obstructive sleep apnea [G47.33] Status post catheter ablation of atrial fibrill* Encounter Status:Closed by SHERRI BROWN on 11/12/24 [facility] 09-16-2024 CNPN Telephone (AGCARDPOB ) ALMA CHANG ([id number]) 1980 Date Time Provider Department 09/16/24 SHERRI BROWN AGCARDPOGiorgio During your visit today, we recorded the following information about you: Davina Rodrigez LPN 09/16/2024 12:16 PM Signed Alma Chang is due to return back to work on 09/21/24, patient needs a letter that states he is ok to return back to work with no restrictions. Thanks, Davina Rodrigez LPN September 16, 2024 12:15 PM Audrey Kamara APRN.LAURY 09/16/2024 1:30 PM Signed Letter created with return to work date 09/21/2024. Audrey Kamara APRN.Davina Mo LPN 09/16/2024 1:35 PM Signed Spoke with Alma Chang on September 16, 2024. Informed of results / instructions as stated above. Davina Rodrigez LPN Allergies As of Date: 09/16/2024 Noted Allergy Reaction PENICILLIN G 03/03/2024 4 - Hives Comments: Adverse Reaction PENICILLINS 03/03/2024 16 - Unknown SULFAMETHOXAZOLE 03/03/2024 4 - Hives TRIMETHOPRIM 03/03/2024 4 - Hives Date Reviewed: 08/30/2024 Reviewed by: Sherri Brown MD - Fully Assessed Prescriptions as of 09/16/2024 - rivaroxaban (XARELTO) 20 mg tablet Take 20 mg by mouth once daily. - buPROPion XL (WELLBUTRIN XL) 150 mg 24 hr tablet Take 150 mg by mouth once daily. - cyclobenzaprine (FLEXERIL) 10 mg tablet Take 10 mg by mouth three times a day as needed for muscle spasm. - multivit-min/ferrous fumarate (MULTI VITAMIN ORAL) Take by mouth once daily. Problem List As Of Date 09/16/2024 Noted Resolved Persistent atrial fibrillation (HCC) [I48.19] 04/06/2024 [facility] current use of antiarrhythmic drug [Z*04/06/2024 04/06/2024 [facility] current use of amiodarone [Z79.899] 04/06/2024 04/06/2024 At risk for stroke [Z91.89] 04/06/2024 Anticoagulant long-term use [Z79.01] 04/06/2024 Obstructive sleep apnea [G47.33] Status post catheter ablation of atrial fibrill* Letter Text Encounter Status:Closed by AUDREY KAMARA on 09/16/24 [facility] 09-13-2024 [facility] Telephone (AGCARDPOB ) ALMA CHANG ([id number]) 1980 M Date Time Provider Department 09/13/24 SHERRI BROWN During your visit today, we recorded the following information about you: Aneta Szymanski 09/13/2024 11:19 AM Signed Post PVAI orders pended for signature Allergies As of Date: 09/13/2024 Noted Allergy Reaction PENICILLIN G 03/03/2024 4 - Hives Comments: Adverse Reaction PENICILLINS 03/03/2024 16 - Unknown SULFAMETHOXAZOLE 03/03/2024 4 - Hives TRIMETHOPRIM 03/03/2024 4 - Hives Date Reviewed: 08/30/2024 Reviewed by: Sherri Brown MD - Fully Assessed Reason for Visit: Orders [681] Primary Visit Diagnosis:Persistent atrial fibrillation (HCC) [I48.19] Other Visit Diagnosis:Dyspnea, unspecified type [R06.00] Order(s):ECHO [082404] Order #: [id number]: 1 FUTURE OUTSIDE VENDOR CARDIAC OUTPATIENT EXTENDED RHYTHM RECORDING (WITHOUT TELEMETRY) [[id number]] Order #: [id number]: 1 FUTURE OUTSIDE VENDOR CARDIAC OUTPATIENT EXTENDED RHYTHM RECORDING (WITHOUT TELEMETRY) [[id number]] Order #: [id number]: 1 Prescriptions as of 09/14/2024 - rivaroxaban (XARELTO) 20 mg tablet Take 20 mg by mouth once daily. - buPROPion XL (WELLBUTRIN XL) 150 mg 24 hr tablet Take 150 mg by mouth once daily. - cyclobenzaprine (FLEXERIL) 10 mg tablet Take 10 mg by mouth three times a day as needed for muscle spasm. - multivit-min/ferrous fumarate (MULTI VITAMIN ORAL) Take by mouth once daily. 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 drug [Z*04/06/2024 04/06/2024 termite inspector current use of amiodarone [Z79.899] 04/06/2024 04/06/2024 At risk for stroke [Z91.89] 04/06/2024 Anticoagulant long-term use [Z79.01] 04/06/2024 Obstructive sleep apnea [G47.33] Status post catheter ablation of atrial fibrill* Encounter Status:Closed by SHERRI BROWN on 09/14/24 Normal [facility] Basic metabolic 2000 panelon 08-31-2024 Anion gap [Moles/Vol] 13 mmol/L Normal 8-15 [facility] Comment on above: Order Comment: Speci men Type: BLOOD SPECIMEN Ordering Facility: [facility] Address: [address] [place] [address] Performed By: #### 2 4321-2 #### [facility] CLIA [id number] [address] [place] Calcium [Mass/Vol] 8.5 mg/dL Normal 8.5-10.2 [facility] Comment on above: Order Comment: Speci men Type: BLOOD SPECIMEN Ordering Facility: [facility] Address: [address] [place] [address] Performed By: #### 2 4321-2 #### [facility] CLIA [id number] [address] [place] [address] [place] Chloride [Moles/Vol] 107 mmol/L Normal 98-107 [facility] Comment on above: Order Comment: Speci men Type: BLOOD SPECIMEN Ordering Facility: [facility] Address: [address] [place] [address] Performed By: #### 2 4321-2 #### [facility] CLIA [id number] [address] [place] CO2 [Moles/Vol] 22 mmol/L Normal 22-30 [facility] Comment on above: Order Comment: Speci men Type: BLOOD SPECIMEN Ordering Facility: [facility] Address: [address] [place] [address] Performed By: #### 2 4321-2 #### [facility] CLIA [id number] [address] [place] [address] [place] Creatinine [Mass/Vol] 1.02 mg/dL Normal 0.73-1.22 [facility] Comment on above: Order Comment: Speci men Type: BLOOD SPECIMEN Ordering Facility: [facility] Address: [address] [place] [address] Performed By: #### 2 4321-2 #### [facility] CLIA [id number] 1 [place] [address] [place] eGFRcr SerPlBld CKD-EPI 2020 95 mL/min/1.73m??? Normal >=60 [facility] Comment on above: Order Comment: Angelica guidry Type: BLOOD SPECIMEN Ordering Facility: [facility] Address: [address] [place] [address] Result Comment: Lyubov mated Glomerular Filtration Rate (eGFR) is calculated using the 2020 CKD-EPI creatinine equation. This equation utilizes serum creatinine, sex, and age as parameters. The creatinine assay has traceable calibration to isotope dilution-mass spectrometry. Refer to KDIGO guidelines for clinical interpretation. In patients with unstable renal function, e.g. those with acute kidney injury, the eGFR may not accurately reflect actual GFR. Performed By: #### 2 4321-2 #### [facility] CLIA [id number] 1 [place] [address] [place] Glucose [Mass/Vol] 113 mg/dL High 74-99 [facility] Comment on above: Order Comment: Angelica guidry Type: BLOOD SPECIMEN Ordering Facility: [facility] Address: [address] [place] [address] Result Comment: The [place] Diabetes Association (ADA) provides guidance for cutoff values for fasting glucose and random glucose. The ADA defines fasting as no caloric intake for at least 8 hours. Fasting plasma glucose results between 100 to 125 mg/dL indicate increased risk for diabetes (prediabetes). Fasting plasma glucose results greater than or equal to 126 mg/dL meet the criteria for diagnosis of diabetes. In the absence of unequivocal hyperglycemia, results should be confirmed by repeat testing. In a patient with classic symptoms of hyperglycemia or hyperglycemic crisis, random plasma glucose results greater than or equal to 200 mg/dL meet the criteria for diagnosis of diabetes. Reference: Standards of Medical Care in Diabetes 2016, [place] Diabetes Association. Diabetes Care. 2016.39(Suppl 1). Performed By: #### 2 4321-2 #### [facility] CLIA [id number] 1 [place] [address] [place] Potassium [Moles/Vol] 3.7 mmol/L Normal 3.7-5.1 [facility] Comment on above: Order Comment: Angelica guidry Type: BLOOD SPECIMEN Ordering Facility: [facility] Address: [address] [place] [address] Performed By: #### 2 4321-2 #### [facility] CLIA [id number] [address] Sodium [Moles/Vol] 142 mmol/L Normal 136-144 [facility] Comment on above: Order Comment: Speci men Type: BLOOD SPECIMEN Ordering Facility: [facility] Address: [address] [place] [address] Performed By: #### 2 4321-2 #### [facility] CLIA [id number] [address] [facility] Urea nitrogen [Mass/Vol] 17 mg/dL Normal 9-24 [facility] Comment on above: Order Comment: Speci men Type: BLOOD SPECIMEN Ordering Facility: [facility] Address: [address] [place] [address] Performed By: #### 2 4321-2 #### [facility] CLIA [id number] [address] CBC panel Auto (Bld)on 08-31 Erythrocyte distribution width (RBC) [Ratio] 12.9 % Normal 11.5-15.0 [facility] Comment on above: Order Comment: Speci men Type: BLOOD SPECIMEN Ordering Facility: [facility] Address: [address] [place] [address] Performed By: #### 5 8410-2 #### [facility] CLIA [id number] [address] Hematocrit (Bld) [Volume fraction] 41.0 % Normal 39.0-51.0 [facility] Comment on above: Order Comment: Speci men Type: BLOOD SPECIMEN Ordering Facility: [facility] Address: [address] [place] [address] Performed By: #### 5 8410-2 #### [facility] CLIA [id number] [address] Hemoglobin (Bld) [Mass/Vol] 13.7 g/dL Normal 13.0-17.0 [facility] Comment on above: Order Comment: Speci men Type: BLOOD SPECIMEN Ordering Facility: [facility] Address: [address] [place] [address] Performed By: #### 5 8410-2 #### [facility] CLIA [id number] [address] MCH (RBC) [Entitic mass] 30.3 pg Normal 26.0-34.0 [facility] Comment on above: Order Comment: Speci men Type: BLOOD SPECIMEN Ordering Facility: [facility] Address: [address] [place] [address] Performed By: #### 5 8410-2 #### [facility] CLIA [id number] [address] MCHC (RBC) [Mass/Vol] 33.4 g/dL Normal 30.5-36.0 [facility] Comment on above: Order Comment: Speci men Type: BLOOD SPECIMEN Ordering Facility: [facility] Address: [address] [place] [address] Performed By: #### 5 8410-2 #### [facility] CLIA [id number] [address] MCV (RBC) [Entitic vol] 90.7 fL Normal 80.0-100.0 [facility] Comment on above: Order Comment: Speci men Type: BLOOD SPECIMEN Ordering Facility: [facility] Address: [address] [place] [address] Performed By: #### 5 8410-2 #### [facility] CLIA [id number] [address] Nucleated RBC (Bld) [#/Vol] 10*3/uL Normal <0.01 [facility] Comment on above: Order Comment: Speci men Type: BLOOD SPECIMEN Ordering Facility: [facility] Address: [address] [place] [address] Performed By: #### 5 8410-2 #### [facility] CLIA [id number] [address] Platelet mean volume (Bld) [Entitic vol] 9.2 fL Normal 9.0-12.7 [facility] Comment on above: Order Comment: Speci men Type: BLOOD SPECIMEN Ordering Facility: [facility] Address: [address] [place] [address] Performed By: #### 5 8410-2 #### [facility] CLIA [id number] [address] Platelets (Bld) [#/Vol] 346 10*3/uL Normal 150-400 [facility] Comment on above: Order Comment: Speci men Type: BLOOD SPECIMEN Ordering Facility: [facility] Address: [address] [place] [address] Performed By: #### 5 8410-2 #### [facility] CLIA [id number] [address] RBC (Bld) [#/Vol] 4.52 10*6/uL Normal 4.20-6.00 [facility] Comment on above: Order Comment: Speci men Type: BLOOD SPECIMEN Ordering Facility: [facility] Address: [address] [place] [address] Performed By: #### 5 8410-2 #### [facility] CLIA [id number] [address] WBC (Bld) [#/Vol] 9.87 10*3/uL Normal 3.70-11.00 [facility] Comment on above: Order Comment: Speci men Type: BLOOD SPECIMEN Ordering Facility: [facility] Address: [address] [place] [address] Performed By: #### 5 8410-2 #### [facility] CLIA [id number] [address] CNDSon 08-31-2024 CNDS HNO ID: [id number] Author: SHERRI BROWN MD Service: Electrophysiology Author Type: Nurse Practitioner Type: Discharge Summary Filed: 08/31/2024 11:01 Note Text: Attestation signed by Sherri Brown MD at 08/31/2024 11:01 AM [facility] Electrophysiology (EP) EP Attending Reviewed case. Agree with evaluation and plan of care as outlined by the BLOCK INSPECTOR, as we discussed. Sherri Brown MD August 31, 2024 11:01 AM DISCHARGE SUMMARY PATIENT NAME: Alma Chang Code Status: Not on file Highest Readmission Risk Score: 5 The 30 day readmissions risk score is derived from an internally validated risk model which evaluates patient level characteristics, utilization history, medication orders and lab results up until the day of discharge. Patients with a score of 39 or above are considered highest risk for readmission. Specific patient level drivers will be listed at the bottom of the summary. Admission Information Admission Information ADMIT DATE: 08/30/2024 DISCHARGE DATE: 08/31/2024 MY DOCTORS AND MEDICAL TEAM: My Main Hospital Doctor: Sherri Brown MD Primary Care Provider: Cheryl Sierra NP, KITCHEN MECHANIC My Medical Team Members: Treatment Team: Attending Provider: Sherri Brown MD MY CONDITION AT DISCHARGE: Good REASON I WAS IN THE HOSPITAL: atrial fibrillation catheter ablation 08/30/2024 SUMMARY OF WHAT HAPPENED WHILE I WAS IN THE HOSPITAL: Dr. Brown performed atrial fibrillation catheter ablation 08/30/2024. The procedure went well, no complications. Unremarkable post procedure observation. OTHER PROBLEMS/DIAGNOSIS: Principal Problem: Persistent atrial fibrillation (HCC) - The patient underwent pulsed field catheter ablation of persistent atrial fibrillation with Dr. Brown 08/30/2024. There were no intraprocedural complications. The patient did well overnight, telemetry demonstrates sinus bradycardia/sinus rhythm with heart rates in the 50s-60s. EKG shows sinus bradycardia, 57 bpm. [id number] suture removed from bilateral groin sites to their entirety, without issue. He will continue Xarelto 20 mg daily for at least 30 days post ablation. 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 Brown. He will have a three month follow up at [facility] which will consist of an echocardiogram and 7-day holter monitor. He will then follow up in [address] Brown's office with Dr. Brown or the BLOCK INSPECTOR (Advanced Practice Nurse). Reviewed postprocedure instructions, medications andfollow-up, patient and his spouse verbalized understanding. Information handout given regarding post-PVI instructions. He is okay to be discharged, as discussed with Dr. Brown. CHADS2-Vasc Score Breakdown 0 Total Score Active Problems: Anticoagulant long-term use Obstructive sleep apnea Status post catheter ablation of atrial fibrillation Resolved Problems: * No resolved hospital problems. * OPERATIONS PERFORMED WHILE IN THE HOSPITAL: atrial fibrillation catheter ablation (pulsed field ablation) 08/30/[address] Brown IMPORTANT TEST/PROCEDURES: No procedures performed TEST RESULTS NOT AVAILABLE AT THIS TIME: No pending results Discharge Disposition Discharge Disposition: Home With Self Care Activity When You Leave the Hospital Have someone nearby if you need help May use stairs No driving for: No driving or operating machinery or power tools 08/31/2024 No lifting greater than 5-10 pounds for 5-7 days Due to the nature of your job at [employer], no vigorous activity or heavy lifting for two weeks No strenuous activity, exercise, or sports for 5-7 days, casual walking is fine Due to the nature of your job at [employer], no vigorous activity or heavy lifting for two weeks No walking restrictions Take showers, not baths, until your wound is completely healed For the first week after the ablation procedure do not soak the groin sites in water such as tub bath or swimming pool. Showering is fine and the groin sites can get wet with soap/water, just no soaking in water. Do not scrub vigorously at the sites. You may wear your seat belt in the car Diet Instructions Resume your pre-hospital diet For Pain When You Leave the Hospital Use acetaminophen (Tylenol) as recommended on the bottle Wound/Surgical Site Care Any bruising and bumps should disappear within 3-4 days Avoid lotions or powders Check your wound every day Right and left groins If the bruising expands or the bump enlarges please call your doctor Some bruising, soreness or a small bump under the skin at the inserion site is normal (more content not included)... Normal [facility] ANES POSTPROC EVALon 025 ANES POSTPROC EVAL HNO ID: [id number] Author: ALMA ZEE MD Service: Anesthesiology Author Type: Physician Type: Anesthesia Postprocedure Evaluation Filed: 08/30/2024 14:08 Note Text: POST ANESTHESIA EVALUATION NOTE : 1980 Procedure Summary Date: 08/30/24 Room / Location: [place] [address] / [place] [facility] Anesthesia Start: 855 Anesthesia Stop: 115 Procedure: COMPRE EP EVAL ABLTJ ATR FIB PULM VEIN ISOLATION (Cardiac) Diagnosis: Persistent atrial fibrillation (HCC) (Persistent atrial fibrillation (HCC) [I48.19]) Surgeons: Sherri Brown MD Responsible Provider: Alma Zee MD Anesthesia Type: general ASA Status: 3 Anesthesia Type: general Airway Type: ETT Last Vitals Vitals Value Taken Time BP 109/59 08/30/24 1300 Temp 36.2 ?C (97.2 ?F) 08/30/24 1300 Pulse 65 08/30/24 1312 Resp 14 08/30/24 1312 SpO2 97 % 08/30/24 1313 Vitals shown include unfiled device data. Post Anesthesia Patient Status Patient Evaluation: bedside. Neurological Status: aware and responsive. Pulmonary Status: breathing comfortably on supplemental oxygen Airway Control: returned to baseline unsupported. Cardiovascular Status: stable. Pain Management: clinically adequate Postoperative Hydration: acceptable. Intraoperative Events: no significant anesthesia events Post Operative Nausea/Vomiting Status: no significant post operative nausea or vomiting Recommendation: continue current plan of care. Anesthesia Observations No Documentation SIGNATURE: Alma Zee MD PATIENT NAME: Alma Chang DATE: August 30, 2024 TIME: 2:08 PM CSN: [id number] Normal [facility] ANES PRE-OPon 08-30-2024 ANES PRE-OP HNO ID: [id number] Author: ALMA ZEE MD Service: Anesthesiology Author Type: Physician Type: Anesthesia Preprocedure Evaluation Filed: 08/30/2024 08:28 Note Text: ANESTHESIOLOGY DAY OF SURGERY NOTE : 1980 Procedure Information Date/Time: 08/30/24 0745 Procedure: COMPRE EP EVAL ABLTJ ATR FIB PULM VEIN ISOLATION (Cardiac) - atrial fibrillation catheter ablation (PFA/Carto). He will need to start Xarelto about one week prior to the procedure. No medications that need to be held. *needs hANDp PACU/ROU Location: [facility] / [facility] Surgeons: Sherri Brown MD Estimated body mass index is 31.94 kg/m? as calculated from the following: Height as of 04/07/24: 180.3 cm (5' 11"). Weight as of 04/07/24: 103.9 kg (229 lb). Most recent hematocrit and potassium results: Hematocrit 42.0 08/30/2024 Potassium 4.2 08/30/2024 Relevant Problems ANESTHESIA (+) Obstructive sleep apnea CARDIO (+) Persistent atrial fibrillation (HCC) PULMONARY (+) Obstructive sleep apnea I - PHYSICAL EVALUATION AIRWAY Patient intubated: No. Tracheostomy tube not present Mallampati: II. TM distance: >3 FB. Neck ROM: full ROM without neurological symptoms. Mouth opening: adequate. Short neck: no. Thick neck: no DENTAL Dental findings: teeth intact. Additional exam findings: no II - ANESTHESIA PLAN ASA Score: 3 Anesthetic Plan: general Airway type: ETT NPO Status: adequate Beta Norma Monitoring Plan Monitoring plan: standard ASA. Post Procedure Analgesic Plan Postoperative analgesic plan: parenteral or oral opioids. Informed Consent Anesthetic risks, benefits, alternatives, personnel and consent discussed: yes. Patient / Responsible Republican agrees to proceed: yes Patient / Surrogate agrees to blood products: Yes DNR status not reviewed with patient and/or family prior to surgery. Significant changes in the patient condition since the History and Physical, not otherwise documented in primary service progress note: no. Potential Anesthesia issues that may suggest increased risk of complications or contraindication to planned procedure: none. Vitals Value Taken Time BP 123/76 08/30/24 0717 Pulse 53 08/30/2417 Resp 16 08/30/2417 Temp SpO2 91 % 08/30/24716 No current facility-administered medications on file as of 08/30/2024. Outpatient Medications as of 08/30/2024 Medication Sig rivaroxaban (XARELTO) 10 mg tablet Take 10 mg by mouth once daily. Pt unsure of dosage buPROPion XL (WELLBUTRIN XL) 150 mg 24 hr tablet Take 150 mg by mouth once daily. I have interviewed and examined the patient. I have reviewed the medical record and/or the pre-anesthesia evaluation, pertinent labs, and test results. This contains updated information obtained within 48 hours of Surgery/Procedure. SIGNATURE: Alma Zee MD PATIENT NAME: Alma Chang DATE: August 30, 2024 TIME: 8:27 AM CSN: [id number] Normal [facility] Basic metabolic 2000 panelon 08-30-2024 Anion gap [Moles/Vol] 10 mmol/L Normal 8-15 [facility] Comment on above: Order Comment: Speci [facility] Type: BLOOD SPECIMEN Ordering Facility: [facility] Address: [address] [place] [address] Performed By: #### 2 4321-2 #### [facility] CLIA [id number] 1 [place] [address] [place] Calcium [Mass/Vol] 8.7 mg/dL Normal 8.5-10.2 [facility] Comment on above: Order Comment: Speci [facility] Type: BLOOD SPECIMEN Ordering Facility: [facility] Address: [address] [place] [address] Performed By: #### 2 4321-2 #### [facility] CLIA [id number] [address] [place] [address] [place] Chloride [Moles/Vol] 106 mmol/L Normal 98-107 [facility] Comment on above: Order Comment: Speci [facility] Type: BLOOD SPECIMEN Ordering Facility: [facility] Address: [address] [place] [address] Performed By: #### 2 4321-2 #### [facility] CLIA [id number] [address] [place] CO2 [Moles/Vol] 24 mmol/L Normal 22-30 [facility] Comment on above: Order Comment: Speci men Type: BLOOD SPECIMEN Ordering Facility: [facility] Address: [address] [place] [address] Performed By: #### 2 4321-2 #### [facility] CLIA [id number] [address] STATES OF [facility] Creatinine [Mass/Vol] 1.00 mg/dL Normal 0.73-1.22 [facility] Comment on above: Order Comment: Speci men Type: BLOOD SPECIMEN Ordering Facility: [facility] Address: [address] [place] [address] Performed By: #### 2 4321-2 #### [facility] CLIA [id number] [address] eGFRcr SerPlBld CKD-EPI 2020 97 mL/min/1.73m??? Normal >=60 [facility] Comment on above: Order Comment: Speci men Type: BLOOD SPECIMEN Ordering Facility: [facility] Address: [address] [place] [address] Result Comment: Lyubov mated Glomerular Filtration Rate (eGFR) is calculated using the 2020 CKD-EPI creatinine equation. This equation utilizes serum creatinine, sex, and age as parameters. The creatinine assay has traceable calibration to isotope dilution-mass spectrometry. Refer to KDIGO guidelines for clinical interpretation. In patients with unstable renal function, e.g. those with acute kidney injury, the eGFR may not accurately reflect actual GFR. Performed By: #### 2 4321-2 #### [facility] CLIA [id number] [address] [facility] Glucose [Mass/Vol] 88 mg/dL Normal 74-99 [facility] Comment on above: Order Comment: Speci men Type: BLOOD SPECIMEN Ordering Facility: [facility] Address: [address] [place] [address] Result Comment: The [place] Diabetes Association (ADA) provides guidance for cutoff values for fasting glucose and random glucose. The ADA defines fasting as no caloric intake for at least 8 hours. Fasting plasma glucose results between 100 to 125 mg/dL indicate increased risk for diabetes (prediabetes). Fasting plasma glucose results greater than or equal to 126 mg/dL meet the criteria for diagnosis of diabetes. In the absence of unequivocal hyperglycemia, results should be confirmed by repeat testing. In a patient with classic symptoms of hyperglycemia or hyperglycemic crisis, random plasma glucose results greater than or equal to 200 mg/dL meet the criteria for diagnosis of diabetes. Reference: Standards of Medical Care in Diabetes 2016, [place] Diabetes Association. Diabetes Care. 2016.39(Suppl 1). Performed By: #### 2 4321-2 #### [facility] CLIA [id number] [address] STATES OF [facility] Potassium [Moles/Vol] 4.2 mmol/L Normal 3.7-5.1 [facility] Comment on above: Order Comment: Angelica guidry Type: BLOOD SPECIMEN Ordering Facility: [facility] Address: [address] [place] [address] Performed By: #### 2 4321-2 #### [facility] CLIA [id number] [address] [facility] Sodium [Moles/Vol] 140 mmol/L Normal 136-144 [facility] Comment on above: Order Comment: Angelica guidry Type: BLOOD SPECIMEN Ordering Facility: [facility] Address: [address] [place] [address] Performed By: #### 2 4321-2 #### [facility] CLIA [id number] [address] [facility] Urea nitrogen [Mass/Vol] 15 mg/dL Normal 9-24 [facility] Comment on above: Order Comment: Angelica guidry Type: BLOOD SPECIMEN Ordering Facility: [facility] Address: [address] [place] [address] Performed By: #### 2 4321-2 #### [facility] CLIA [id number] [address] CBC panel Auto (Bld)on 08-30 Erythrocyte distribution width (RBC) [Ratio] 12.5 % Normal 11.5-15.0 [facility] Comment on above: Order Comment: Speci men Type: BLOOD SPECIMEN Ordering Facility: [facility] Address: [address] [place] [address] Performed By: #### 5 8410-2 #### [facility] CLIA [id number] [address] [facility] Hematocrit (Bld) [Volume fraction] 42.0 % Normal 39.0-51.0 [facility] Comment on above: Order Comment: Speci men Type: BLOOD SPECIMEN Ordering Facility: [facility] Address: [address] [place] [address] Performed By: #### 5 8410-2 #### [facility] CLIA [id number] [address] [facility] Hemoglobin (Bld) [Mass/Vol] 14.1 g/dL Normal 13.0-17.0 [facility] Comment on above: Order Comment: Speci men Type: BLOOD SPECIMEN Ordering Facility: [facility] Address: [address] [place] [address] Performed By: #### 5 8410-2 #### [facility] CLIA [id number] [address] [place] MCH (RBC) [Entitic mass] 30.1 pg Normal 26.0-34.0 [facility] Comment on above: Order Comment: Speci men Type: BLOOD SPECIMEN Ordering Facility: [facility] Address: [address] [place] [address] Performed By: #### 5 8410-2 #### [facility] CLIA [id number] [address] [place] MCHC (RBC) [Mass/Vol] 33.6 g/dL Normal 30.5-36.0 [facility] Comment on above: Order Comment: Speci men Type: BLOOD SPECIMEN Ordering Facility: [facility] Address: [address] [place] [address] Performed By: #### 5 8410-2 #### [facility] CLIA [id number] [address] [facility] MCV (RBC) [Entitic vol] 89.7 fL Normal 80.0-100.0 [facility] Comment on above: Order Comment: Speci men Type: BLOOD SPECIMEN Ordering Facility: [facility] Address: [address] [place] [address] Performed By: #### 5 8410-2 #### [facility] CLIA [id number] [address] [place] Nucleated RBC (Bld) [#/Vol] 10*3/uL Normal <0.01 [facility] Comment on above: Order Comment: Speci men Type: BLOOD SPECIMEN Ordering Facility: [facility] Address: [address] [place] [address] Performed By: #### 5 8410-2 #### [facility] CLIA [id number] [address] Platelet mean volume (Bld) [Entitic vol] 8.9 fL Low 9.0-12.7 [facility] Comment on above: Order Comment: Speci men Type: BLOOD SPECIMEN Ordering Facility: [facility] Address: [address] [place] [address] Performed By: #### 5 8410-2 #### [facility] CLIA [id number] [address] Platelets (Bld) [#/Vol] 326 10*3/uL Normal 150-400 [facility] Comment on above: Order Comment: Speci men Type: BLOOD SPECIMEN Ordering Facility: [facility] Address: [address] [place] [address] Performed By: #### 5 8410-2 #### [facility] CLIA [id number] [address] OF [place] RBC (Bld) [#/Vol] 4.68 10*6/uL Normal 4.20-6.00 [facility] Comment on above: Order Comment: Speci men Type: BLOOD SPECIMEN Ordering Facility: [facility] Address: [address] [place] [address] Performed By: #### 5 8410-2 #### [facility] CLIA [id number] [address] WBC (Bld) [#/Vol] 4.53 10*3/uL Normal 3.70-11.00 [facility] Comment on above: Order Comment: Speci men Type: BLOOD SPECIMEN Ordering Facility: [facility] Address: [address] [place] [address] Performed By: #### 5 8410-2 #### [facility] CLIA [id number] [address] CONFIRM BLOOD TYPEon 025 ABO O Normal [facility] Comment on above: Order Comment: Speci men Type: BLOOD SPECIMEN Ordering Facility: [facility] Address: [address] [place] [address] Performed By: #### 5 8410-2 #### [facility] CLIA [id number] [address] Rh Nom (Bld) Positive Normal [facility] Comment on above: Order Comment: Speci men Type: BLOOD SPECIMEN Ordering Facility: [facility] Address: [address] [place] [address] Performed By: #### 5 8410-2 #### [facility] CLIA [id number] [address] HISTORY PHYSICALon HISTORY PHYSICAL HNO ID: [id number] Author: SHERRI BROWN MD Service: Electrophysiology Author Type: Physician Type: H&P Filed: 08/30/2024 09:07 Note Text: HANDP: CARDIOLOGY SERVICE [facility] Electrophysiology (EP) SERVICE DATE: 08/30/2024 SERVICE TIME: 8:43 AM CONSULTING PHYSICIAN: Sherri Brown PCP: Cheryl Sierra NP, KITCHEN MECHANIC ATTENDING: Sherri Brown MD REASON FOR ADMISSION: Arrhythmias Subjective CHIEF COMPLAINT: Persistent atrial fibrillation (HCC) [I48.19] HISTORY OF PRESENT ILLNESS: Mr. Chang is a 43 year old male who presents for scheduled atrial fibrillation catheter ablation. History of recurrent symptomatic atrial fibrillation since about September 2019. Symptoms with arrhythmia include palpitations, shortness of breath, fatigue, effort intolerance, sometimes lightheadedness. No chest pain with the episodes. When not in atrial fibrillation he feels well, no exertional symptoms such as shortness of breath or chest pain. Episodes of atrial fibrillation have been persistent in the past, on at least two occasions have required electrical cardioversion for baptism of sinus rhythm. He has obstructive sleep apnea, states compliance with prescribed CPAP therapy. He presents now for catheter ablation. PAST MEDICAL HISTORY Diagnosis Date Anticoagulant long-term use 04/06/2024 At risk for stroke 04/06/2024 Depression History of cardioversion 01/02/2024 Obstructive sleep apnea uses CPAP regularly Persistent atrial fibrillation (HCC) 04/06/2024 PAST SURGICAL HISTORY Procedure Laterality Date CARDIOVERSION, ELECTIVE, ELECTRICAL 09/2019 [facility] CARDIOVERSION, ELECTIVE, ELECTRICAL 12/2023 [facility] REPAIR BICEPS TENDON RUPTURE Left 2020 TONSILLECTOMY AND ADENOIDECTOMY WRIST SURGERY HX Left 2002 FAMILY HISTORY Problem Relation Age of Onset Thyroid Mother No Known Problems Father No Known Problems Sister Obstructive Sleep Apnea Brother Cancer Half-brother testicular Social History Tobacco Use Smoking status: Never Smokeless tobacco: Never Substance Use Topics Alcohol use: Yes Comment: Occasionally Drug use: Never Prior to Admission Medications Prescriptions Last Dose Informant Patient Reported? Taking? buPROPion XL (WELLBUTRIN XL) 150 mg 24 hr tablet 08/30/2024 Morning Yes Yes Sig: Take 150 mg by mouth once daily. cyclobenzaprine (FLEXERIL) 10 mg tablet Unknown Yes Yes Sig: Take 10 mg by mouth three times a day as needed for muscle spasm. multivit-min/ferrous fumarate (MULTI VITAMIN ORAL) 08/29/2024 Yes Yes Sig: Take by mouth once daily. rivaroxaban (XARELTO) 20 mg tablet 08/30/2024 Morning Yes Yes Sig: Take 20 mg by mouth once daily. Facility-Administered Medications: None No current facility-administered medications for this encounter. Facility-Administered Medications Ordered in Other Encounters Medication Dose Route Frequency midazolam (PF) injection (VERSED) INTRAVENOUS PRN ALLERGIES Allergen Reactions Penicillin G Hives Adverse Reaction Penicillins Unknown Sulfamethoxazole Hives Trimethoprim Hives REVIEW OF SYSTEMS: The following systems were reviewed with the patient, and are unremarkable other than as described below. SYSTEMIC: No fever, chills, or change in weight or appetite HEENT: No recent change in vision or hearing. NECK: Negative for lumps, goiter, pain and significant neck swelling RESPIRATORY: See HPI, no cough, productive sputum, hemoptysis CARDIOVASCULAR: See HPI GI: No recent nausea, vomiting or diarrhea. : No recent hematuria or dysuria. SKIN: No recent itching or eruption. PSYCH: No recent active anxiety or depression. HEMATOLOGY/ONCOLOGY: No recent diagnosis of bleeding or cancer. ENDOCRINE: No recent polyuria or heat intolerance. NEURO: No recent TIA, stroke or seizures. RHEUMATOLOGY: No recent active connective tissue disease. Objective PHYSICAL EXAM: Pleasant, comfortable, not in acute distress. Awake, alert, oriented times 3. Moves all extremities. SKIN: Skin color, texture, turgor normal. No rashes or lesions. HEENT: Normocephalic, face symmetrical. EYES: EOMI NECK: No jugulovenous distention, Supple LUNGS: Clear to auscultation bilaterally. CARDIAC: Normal S1 and S2; no rubs, murmurs, or gallops ABDOMEN: Soft, nontender, bowel sounds present. EXTREMITIES: No edema. NEURO: Grossly normal cognition, motor function, and cranial nerves III-XII PULSES: Peripheral pulses present. There is no height or weight on file to calculate BMI. O2 Therapy: Room Air No data recorded Patient Vitals for the past 48 hrs: BP Pulse Resp SpO2 08/30/24 0717 123/76 (!) 53 16 91 % DATA: Diagnostic tests reviewed for today's visit: Most recent labs and imaging results. Most recent EKG Outside chart from [facility] reviewed. Past 72 Hour Labs: Recent Labs 08/30/24 0709 WBC 4.53 RBC 4.68 HB 14.1 HCT 42.0 MCV (more content not included)... Normal [facility] TYPE + SCREENon 08-30-2024 ABO O Normal [facility] Comment on above: Order Comment: Speci men Type: BLOOD SPECIMEN Ordering Facility: [facility] Address: [address] [place] [address] Performed By: #### T SCR #### [facility] CLIA [id number] [address] Rh Nom (Bld) Positive Normal [facility] Comment on above: Order Comment: Speci brea Type: BLOOD SPECIMEN Ordering Facility: [facility] Address: [address] [place], [place] [address] Performed By: #### T SCR #### [facility] CLIA [id number] [address] TYPE AND SCREEN EXPIRATION 09/02/2024 23:59 Normal [facility] Comment on above: Order Comment: Speci men Type: BLOOD SPECIMEN Ordering Facility: [facility] Address: [address] [place], [place] [address] Performed By: #### T SCR #### [facility] CLIA [id number] [address] CNPNon 08-02-2024 CNPN Telephone (AGCARDPOB ) ALMA CHANG ([id number]) 1980 Date Time Provider Department 08/02/24 SHERRI BROWN AGCARDPOGiorgio During your visit today, we recorded the following information about you: Aneta Szymanski 08/02/2024 3:09 PM Signed Patient is scheduled for a PFA on 08/[address] Brown. The hospital will call the day before between 2-5pm with your arrival time. You should not eat or drink after midnight the day before the procedure. You will need a pile driver operator barge mounted when released from the hospital and you will stay overnight for observation. You should continue to take medications as prescribed the morning of the procedure with just a sip of water but start Xarelto 1 week prior to the procedure Patient has a prescription from [facility] morning of Spoke with Alma Chang on August 02, 2024. Informed of instructions as stated above. Patient verbalized understanding. Eboni Mata RN 08/03/2024 7:48 AM Signed Pt's name has been added to soto procedure board. Eboni Duvall RN Allergies As of Date: 08/02/2024 Noted Allergy Reaction PENICILLIN G 03/03/2024 4 - Hives Comments: Adverse Reaction PENICILLINS 03/03/2024 16 - Unknown SULFAMETHOXAZOLE 03/03/2024 4 - Hives TRIMETHOPRIM 03/03/2024 4 - Hives Date Reviewed: 04/07/2024 Reviewed by: Sherri Brown MD - Fully Assessed Reason for Visit: Preparations For Procedures [899] Prescriptions as of 08/03/2024 - multivit-min/ferrous fumarate (MULTI VITAMIN ORAL) Take by mouth once daily. 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 [Z79.899] 04/06/2024 04/06/2024 At risk for stroke [Z91.89] 04/06/2024 Anticoagulant long-term use [Z79.01] 04/06/2024 Obstructive sleep apnea [G47.33] Encounter Status:Closed by ANETA SZYMANSKI on 08/02/24 [facility] CNOVon 04-07-2024 CNOV Office Visit (AGCARDPOB) ALMA CHANG ([id number]) 1980 M Date Time Provider Department 04/07/24 2:20 PM SHERIR BROWN During your visit today, we recorded the following information about you: Pulse Respiration Blood pressure Weight 70/minute 18/minute 118/70 103.9 kg Height 1.803 m Sherri Brown MD 04/07/2024 5:18 PM Signed PRIMARY CARE PHYSICIAN: Cheryl Sierra NP [address] [place] [address] REFERRING PHYSICIAN: Jordy Pate [address] [facility] [address] Patient Care Team: Cheryl Sierra CNP as PCP - General (Family Medicine) Herlinda, Jordy Romano APRN.LAURY as Nurse Practitioner (Cardiology) CHIEF COMPLAINT: Evaluation of arrhythmia HISTORY OF PRESENT ILLNESS: Mr. Chang is a 43 year old male who presents today for evaluation of atrial fibrillation. He reports being diagnosed with atrial fibrillation in September 2019. He was experiencing sudden onset exertional shortness of breath, palpitations, fatigue. No obvious trigger except perhaps stress, not getting good sleep. Went to [place] [facility], was found to have atrial fibrillation. He underwent electrical cardioversion. 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 Farley, had echocardiogram that he reports was unremarkable. He was treated with Xarelto. He was doing well at one year follow up. At about a year and half later, was still doing well, the Xarelto was stopped. He had recurrence of the atrial fibrillation in December 2023, again no obvious trigger other than the usual stress that he has. He waited overnight to see if it would resolve, but when he awoke in the morning was still in the atrial fibrillation. Went to [facility], was admitted to the hospital. The next day he underwent electrical cardioversion. He was treated with IV amiodarone then oral amiodarone for about one month. He was on Xarelto until the end of February. No recurrences of the atrial fibrillation since then, but he has experienced brief palpitations or skipped beats occasionally. He presents to discuss the atrial fibrillation management options, including possibility of atrial fibrillation catheter ablation. When not in atrial fibrillation he feels well, no symptoms, no exertional symptoms such as chest pain or shortness of breath. He is not aware of any particular triggers or exacerbating factors for the arrhythmia. He states compliance with prescribed CPAP therapy for sleep apnea. He does not drink excessive amounts of alcohol or caffeinated beverages. I have confirmed and edited as necessary, the PFSH and ROS obtained by others. PAST MEDICAL HISTORY Diagnosis Date Anticoagulant long-term use 04/06/2024 At risk for stroke 04/06/2024 History of cardioversion 01/02/2024 Obstructive sleep apnea uses CPAP regularly Persistent atrial fibrillation (HCC) 04/06/2024 PAST SURGICAL HISTORY Procedure Laterality Date CARDIOVERSION, ELECTIVE, ELECTRICAL 09/2019 [facility] CARDIOVERSION, ELECTIVE, ELECTRICAL 12/2023 [facility] REPAIR BICEPS TENDON RUPTURE Left 2020 TONSILLECTOMY AND ADENOIDECTOMY WRIST SURGERY HX Left 2002 SOCIAL HISTORY Social History Tobacco Use Smoking status: Never Smokeless tobacco: Never Substance Use Topics Alcohol use: Yes Comment: Occasionally Drug use: Never FAMILY HISTORY Problem Relation Age of Onset Thyroid Mother No Known Problems Father No Known Problems Sister Obstructive Sleep Apnea Brother Cancer Half-brother testicular ALLERGIES: ALLERGIES Allergen Reactions Penicillin G Hives Adverse Reaction Penicillins Unknown Sulfamethoxazole Hives Trimethoprim Hives MEDICATIONS: multivit-min/ferrous fumarate (MULTI VITAMIN ORAL) Take by mouth once daily. REVIEW OF SYSTEMS: Review of Systems Constitutional: Negative for chills and fever. Respiratory: Positive for shortness of breath. Negative for cough, hemoptysis and sputum production. Cardiovascular: Positive for palpitations. Negative for chest pain, orthopnea, claudication, leg swelling and PND. Gastrointestinal: Negative for abdominal pain, blood in stool, melena, nausea and vomiting. Genitourinary: Negative for dysuria, flank pain and hematuria. Musculoskeletal: Negative for falls. Skin: Negative for rash. Neurological: Negative for dizziness, focal weakness, seizures and loss of consciousness. PHYSICAL EXAMINATION: BP 118/70 Pulse 70 Resp 18 Ht 5' 11" (1.80m) Wt 229 lb (103.9kg) SpO2 97% BMI 31.95 kg/(m2). Physical Exam Vitals reviewed. Constitutional: General: He is not in acute distress. Appearance: Normal appearance. HENT: Head: Normocephalic and atraumatic. Cardiovascular: Rate and Rhythm: Normal rate and regular rhythm. Heart sounds: Normal heart sounds, S1 normal and S2 normal. No murmu (more content not included)... Normal [facility] ECG B/O W INTERP (MED OFFICE )on 04-07-2024 Interpretation and review of laboratory results Normal [facility] Sinus rhythm 60 bpm; normal conduction intervals (WA 118 ms, QRS 94 ms); QTc 398 ms; no WPW patterns [facility] Cardiology Visit Reporton Cardiology Visit Report [facility] [address] [place], [place] [address] OFFICE VISIT Date of Service: 02/19/24 MR#: [id number] Acct: [id number] Name: ALMA CHANG Rep #: [id number] : 1980 Provider: YESICA juarez Age/Sex: 43/M Location: [facility] Status: Signed HPI HPI History of Present Illness Details: This is a 43-year-old white male with a past history of paroxysmal atrial fibrillation status post synchronized biphasic DC cardioversion at the [facility] emergency department on 09-14-2019. He was evaluated at [facility] in December 2023 for atrial fibrillation with RVR. IV amiodarone was added to assist with conversion to sinus rhythm. Echocardiogram on 01/01/2024 showed ejection unction of 55 to 60%, normal left and right atrium size, and no significant valvular abnormality. He proceeded with transesophageal echocardiogram that showed ejection fraction 55% and no thrombus detected in left atrial appendage. He proceeded with cardioversion on 01/02/2024. It was recommended continue amiodarone for 1 month. He was discharged on Xarelto. He denies chest, arm, jaw, or neck discomfort. He states infrequent palpitations that last a few seconds and he describes as a flutter. He denies bilateral lower extremity edema. He denies claudication. He denies shortness of breath with activity, shortness of breath at rest, orthopnea, or PND. He denies chronic cough. He denies significant, sudden weight gain. He acknowledges occasional lightheadedness when going from a squatting to standing position. He denies dizziness, near-syncope, or syncope. He denies blood in urine, blood in stool, or epistaxis. He denies fever with chills. He denies myalgia. He denies fatigue. His exercise level has remained stable. Intake Vital Signs 01/01/24 14:52 02/19/24 10:11 Height 5 ft 11 in 5 ft 11 in Weight: 231 lb BMI 32.2 BP 134/86 H Blood Pressure Location Lt brachial Position Sitting Respiration 16 Pulse 64 Pulse Source NIBP Intake Visit Reasons: S/P [facility] 01/01 Welt Cutter Required: No Is patient in pain?: No Allergies Penicillins Allergy (Verified 02/19/24 10:14) PT UNSURE OF REACTION sulfamethoxazole (From Bactrim) Allergy (Verified 02/19/24 10:14) Hives trimethoprim (From Bactrim) Allergy (Verified 02/19/24 10:14) Hives penicillin G Adverse Reaction (Verified 02/19/24 10:14) Hives Medications ???Medication ???Instructions ???Recorded ???Confirmed ???Type multivitamin (Daily Multi-Vitamin 1 tab PO DAILY vitamin 01/01/24 02/19/24 History tablet) rivaroxaban 20 mg tablet (Xarelto) 20 mg PO DAILY #30 tabs 01/02/24 02/19/24 Rx Ejection fraction %: 55 (55-60) Have you fallen in the past year?: No [facility] Medical History (Updated 02/19/24 @ 10:26 by Jordy Pate INSTRUCTIONAL TECHNOLOGY SPECIALIST, INSTRUCTIONAL TECHNOLOGY SPECIALIST-C) History of cardioversion (01/02/24) Contact with or exposure to other viral diseases URI (upper respiratory infection) Stomach ulcer Obstructive sleep apnea Paroxysmal atrial fibrillation Atrial fibrillation Surgical History History of surgery on upper extremity H/O adenoidectomy H/O left wrist surgery Family History Mother Thyroid disorder Brother Sleep apnea Grandfather Atrial fibrillation Onset in mid 70s. Social History Smoking Status: Never smoker alcohol intake: current details: Rarely ROS Const Const: Negative for fatigue or weakness Eyes Eyes: Negative for change in vision ENT ENT: Negative for dizziness or balance problems Cardio Chest Pain: No Palpitations: Yes (Infrequently, lasts a couple seconds.) feels like its: other (Flutter) Edema: None Muscle aches with walking: None Resp Respiratory: Negative for SOB with activity, SOB at rest or SOB orthopnea SOB lying down GI GI: Negative nausea or heartburn : Negative for hematuria or frequent nighttime urination/ nocturia Musc Musc: Negative for balance problems Skin Skin: Negative non-healing lesions or rash Neuro Neuro: Positive for lightheadedness (Occasionally when standing up after squatting); Negative for dizziness, near syncope, syncope or weakness Endo Endo: Negative for fatigue Allergy Allergy/Immunology: Negative for rash Cardiology Exam Const Appearance: cooperative, healthy appearing, comfortable and no acute distress Nutritional Appearance: well nourished and obese Orientation: alert, awake and oriented x3 Head Head: normal to inspection Ears: hearing grossly normal bilaterally Nose: external nose normal Face and Sinus: face symmetric Mouth: moist mucous membranes Eyes General: appearance normal, both eyes and all related structures Eyelids: eyelids normal EOM: (more content not included)... Normal [facility] 12 Lead EKGon 01-02-2024 12 Lead EKG [facility] [address] [place] [address] 12 Lead EKG 01/02/24 1227 MR#: [id number] Acct: [id number] Name: ALMA CHANG Rep #: [id number] : 1980 43 From: Juan José King MD Attending Dr: Dr. Tina Olvera MD Status: DIS PREETHI Ordering Dr: Juan José King MD Date: 01/02/24 Location: [facility] Sex: M C Admitted: 01/01/24 Test Reason : Blood Pressure : */* mmHG Vent. Rate : 61 BPM Atrial Rate : 61 BPM P-R Int : 124 ms QRS Dur : 94 ms QT Int : 408 ms P-R-T Axes : 45 34 24 degrees QTcB Int : 410 ms Normal sinus rhythm Normal ECG When compared with ECG of 02-Jan-2024 06:10, MANUAL COMPARISON REQUIRED DATA IS UNCONFIRMED Confirmed by JUAN JOSÉ KING ([id number]), technical editor SARAI ERWIN ([id number]) on 01/05/2024 6:16:38 AM Referred By: MIN Confirmed By: JUAN JOSÉ KING 01/05/24 0616 Date Juan José King MD CC: YESICA Sierra; Dr. Juan José King MD; Dr. Tina Olvera MD Signed [facility] 12 Lead EKG [facility] [address] [place] [address] 12 Lead EKG 01/02/24 0610 MR#: [id number] Acct: [id number] Name: ALMA CHANG Rep #: [id number] : 1980 43 From: Juan José King MD Attending Dr: Dr. Tina Olvera MD Status: DIS PREETHI Ordering Dr: Juan José King MD Date: 01/02/24 Location: [facility] Sex: M C Admitted: 01/01/24 Test Reason : PRE-CARDIOVERSION Blood Pressure : */* mmHG Vent. Rate : 87 BPM Atrial Rate : * BPM P-R Int : * ms QRS Dur : 82 ms QT Int : 350 ms P-R-T Axes : * 65 39 degrees QTcB Int : 421 ms Atrial fibrillation Abnormal ECG When compared with ECG of 01-Jan-2024 10:43, MANUAL COMPARISON REQUIRED DATA IS UNCONFIRMED Confirmed by JUAN JOSÉ KING ([id number]), technical editor SARAI ERWIN ([id number]) on 01/05/2024 6:13:14 AM Referred By: Confirmed By: JUAN JOSÉ KING 01/05/2413 Date Juan José King MD CC: YESICA Sierra; Dr. Juan José King MD; Dr. Tina Olvera MD Signed Normal [facility] Basic Metabolic Profile (BMP )on 01-02-2024 BUN/CRE 12.8 RATIO Normal 10-20 [facility] Comment on above: Order Comment: Comme nts: Fasting Lipid Profile Performed By: #### L 501.5200, L100.0100, L500.4100, L500.2500 ####[facility] [address] [place], [address] CA,Total 8.6 mg/dL Normal 8.5-10.1 [facility] Comment on above: Order Comment: Comme nts: Fasting Lipid Profile Performed By: #### L 501.5200, L100.0100, L500.4100, L500.2500 ####[facility] [address] [place], [address] Chloride [Moles/Vol] 108 mmol/L High 98-107 [facility] Comment on above: Order Comment: Comme nts: Fasting Lipid Profile Performed By: #### L 501.5200, L100.0100, L500.4100, L500.2500 ####[facility] [address] [place], [address] CO2 [Moles/Vol] 24.0 mmol/L Normal 21.0-32.0 [facility] Comment on above: Order Comment: Comme nts: Fasting Lipid Profile Performed By: #### L 501.5200, L100.0100, L500.4100, L500.2500 ####[facility] [address] [place], [address] Creatinine [Mass/Vol] 1.09 mg/dL Normal 0.70-1.30 [facility] Comment on above: Order Comment: Comme nts: Fasting Lipid Profile Result Comment: The validity of the calculated GFR GFRAA in patients over 70 years has not been determined. Clinical correlation is essential. Performed By: #### L 501.5200, L100.0100, L500.4100, L500.2500 ####[facility] [address] [place], [address] ECRCL 109.72 ml/min Normal [facility] Comment on above: Order Comment: Comme nts: Fasting Lipid Profile Performed By: #### L 501.5200, L100.0100, L500.4100, L500.2500 ####[facility] [address] [place], [address] EST GFR - AA 96 mL/min Normal >60 [facility] Comment on above: Order Comment: Comme nts: Fasting Lipid Profile Result Comment: Afri can Finnish GFR Calc Performed By: #### L 501.5200, L100.0100, L500.4100, L500.2500 ####[facility] [address] [place], [address] GAP 6 Normal 5-15 [facility] Comment on above: Order Comment: Comme nts: Fasting Lipid Profile Performed By: #### L 501.5200, L100.0100, L500.4100, L500.2500 ####[facility] [address] [place], [address] GFR/1.73 sq M.predicted among non-blacks MDRD (S/P/Bld) [Vol rate/Area] 79 mL/min/{1.73_m2} Normal >60 [facility] Comment on above: Order Comment: Comme nts: Fasting Lipid Profile Result Comment: Non- GFR Calc Performed By: #### L 501.5200, L100.0100, L500.4100, L500.2500 ####[facility] [address] [place], [address] Glucose [Mass/Vol] 103 mg/dL Normal 74-106 [facility] [facility] Comment on above: Order Comment: Comme nts: Fasting Lipid Profile Result Comment: Fast ing Glucose result from 100 to 125 mg/dL suggests IMPAIRED HOMEOSTASIS per A.D.A. criteria. Performed By: #### L 501.5200, L100.0100, L500.4100, L500.2500 ####[facility] [address] [place], [address] Potassium [Moles/Vol] 3.6 mmol/L Normal 3.5-5.1 [facility] Comment on above: Order Comment: Comme nts: Fasting Lipid Profile Performed By: #### L 501.5200, L100.0100, L500.4100, L500.2500 ####[facility] [address] [place], [address] Sodium [Moles/Vol] 138 mmol/L Normal 136-145 [facility] Comment on above: Order Comment: Comme nts: Fasting Lipid Profile Performed By: #### L 501.5200, L100.0100, L500.4100, L500.2500 ####[facility] [address] [place], [address] Urea nitrogen [Mass/Vol] 14 mg/dL Normal 7-18 [facility] Comment on above: Order Comment: Comme nts: Fasting Lipid Profile Performed By: #### L 501.5200, L100.0100, L500.4100, L500.2500 ####[facility] [address] [place], [address] CBC W/Diff, Automatedon 11- Absolute Lymph 2.20 X10 3/uL Normal 0.83-4.51 [facility] Comment on above: Performed By: #### L 501.5200, L100.0100, L500.4100, L500.2500 ####[facility] [address] [place], [address] Absolute Neut 3.5 X10 3/uL Normal 2.0-7.7 [facility] Comment on above: Performed By: #### L 501.5200, L100.0100, L500.4100, L500.2500 ####[facility] [address] [place], [address] Basophils/100 WBC (Bld) 0.6 % Normal 0-1 [facility] Comment on above: Performed By: #### L 501.5200, L100.0100, L500.4100, L500.2500 ####[facility] [address] [place], [address] Eosinophils/100 WBC (Bld) 1.9 % Normal 0-5 [facility] Comment on above: Performed By: #### L 501.5200, L100.0100, L500.4100, L500.2500 ####[facility] [address] [place], [address] Erythrocyte distribution width (RBC) [Ratio] 13.2 % Normal 11.6-14.6 [facility] Comment on above: Performed By: #### L 501.5200, L100.0100, L500.4100, L500.2500 ####[facility] [address] [place], [address] Hematocrit (Bld) [Volume fraction] 46.9 % Normal 40-54 [facility] Comment on above: Performed By: #### L 501.5200, L100.0100, L500.4100, L500.2500 ####[facility] [address] [place], [address] Hemoglobin (Bld) [Mass/Vol] 16.7 g/dL High 13.0-16.5 [facility] Comment on above: Performed By: #### L 501.5200, L100.0100, L500.4100, L500.2500 ####[facility] [address] [place], [address] IG% 0.300 Normal 0.0-0.9 [facility] Comment on above: Result Comment: IG% - Immature Granulocytes (promyelocytes, myelocytes and metamyelocytes) > 1% indicates that a LEFT SHIFT is Present. Performed By: #### L 501.5200, L100.0100, L500.4100, L500.2500 ####[facility] [address] [place], [address] Lymphocytes/100 WBC (Bld) 34.3 % Normal 19-41 [facility] Comment on above: Performed By: #### L 501.5200, L100.0100, L500.4100, L500.2500 ####[facility] [address] [place], [address] MCH (RBC) [Entitic mass] 30.6 pg Normal 27.0-32.0 [facility] Comment on above: Performed By: #### L 501.5200, L100.0100, L500.4100, L500.2500 ####[facility] [address] [place], [address] MCHC (RBC) [Mass/Vol] 35.6 g/dL Normal 32-36 [facility] Comment on above: Performed By: #### L 501.5200, L100.0100, L500.4100, L500.2500 ####[facility] [address] [place], [address] MCV (RBC) [Entitic vol] 85.9 fL Normal 80-94 [facility] Comment on above: Performed By: #### L 501.5200, L100.0100, L500.4100, L500.2500 ####[facility] [address] [place], [address] Monocytes/100 WBC (Bld) 8.1 % Normal 0-10 [facility] Comment on above: Performed By: #### L 501.5200, L100.0100, L500.4100, L500.2500 ####[facility] [address] [place], [address] Neutrophils/100 WBC (Bld) 54.8 % Normal 47-70 [facility] Comment on above: Performed By: #### L 501.5200, L100.0100, L500.4100, L500.2500 ####[facility] [address] [place], [address] Nucleated RBC (Bld) [#/Vol] 0 10*3/uL Normal 0-5 [facility] Comment on above: Performed By: #### L 501.5200, L100.0100, L500.4100, L500.2500 ####[facility] [address] [place], [address] Platelet mean volume (Bld) [Entitic vol] 9.0 fL Normal 6.2-12.0 [facility] Comment on above: Performed By: #### L 501.5200, L100.0100, L500.4100, L500.2500 ####[facility] [address] [place], [address] Platelets (Bld) [#/Vol] 344 10*3/uL Normal 150-450 [facility] Comment on above: Performed By: #### L 501.5200, L100.0100, L500.4100, L500.2500 ####[facility] [address] [place], [address] RBC (Bld) [#/Vol] 5.46 10*6/uL Normal 4.6-6.2 [facility] Comment on above: Performed By: #### L 501.5200, L100.0100, L500.4100, L500.2500 ####[facility] [address] [place], [address] RDW SD 40.6 fl Normal 35.1-43.9 [facility] Comment on above: Performed By: #### L 501.5200, L100.0100, L500.4100, L500.2500 ####[facility] [address] [place], [address] WBC (Bld) [#/Vol] 6.4 10*3/uL Normal 4.4-11.0 [facility] Comment on above: Performed By: #### L 501.5200, L100.0100, L500.4100, L500.2500 ####[facility] [address] [place], [address] Cardioversion Reporton 01-01 Cardioversion Report [facility] [address] [place] [address] MR#: [id number] Acct: [id number] Name: ALMA CHANG Rep #: [id number] : 1980 43 From: Juan José King MD Primary Care: YESICA Bauer Status: GINA ORO Referring Dr: Sex: Alex Richards Cardioversion Cardioversion: RODERICK guided synchronized cardioversion/DCCV Indication; A-fib with RVR. Preprocedure diagnosis 43-year-old patient with history of A-fib Underwent synchronized cardioversion [place] [address] Farley And he was on anticoagulation with Xarelto Patient had symptoms of palpitation lightheadedness and dizziness and was seen in the ED at [facility] Where he had an A-fib with RVR. Started on treatment with heparin as well as amiodarone continued to be in A-fib and he was symptomatic. Based on this findings we will proceed with a RODERICK guided synchronized cardioversion Drum Sander Offbearer Dr. Hannon provide anesthesia service We proceed with a RODERICK visualized left atrium as well as left atrial appendage with no evidence of thrombus Also will perform bubble study no evidence of intracardiac shunt. Following this we will proceed with synchronized cardioversion using 200 biphasic joules Patient successfully converted to sinus rhythm. Postprocedure patient remained stable hemodynamically maintaining normal sinus rhythm with no focal neurological deficit. Conclusion and recommendation; Successful RODERICK guided synchronized cardioversion with no complication. Patient to follow-up with the cardiology group for continuation of cardiac care and to be maintained on anticoagulation for 1 month Xarelto And then decide further plan Following up follow-up with the orthopedic shoe maker Also to continue on amiodarone for 1 months 400 mg twice daily for 3 days then 200 mg twice daily for a week and then 200 mg daily. Dosing of medication will be determined in the follow-up with the cardiology team. Juan José King MD,[facility] 01/02/24 144 Date Juan José King MD CC: INSTRUCTIONAL TECHNOLOGY SPECIALIST-C Cheryl Sierra; Dr. Tina Olvera MD Date Dictated: 01/02/241440 Date Transcribed: 11/22/24 1441 Wool Hat Flanger: VERA Signed Normal [facility] Cardioversion Report [facility] [address] [place] [address] MR#: [id number] Acct: [id number] Name: ALMA CHANG Rep #: [id number] : 1980 43 From: Zaheer Hannon DO Primary Care: Cheryl Sierra, INSTRUCTIONAL TECHNOLOGY SPECIALIST-C Status: DI S PREETHI Referring Dr: Sex: M C Cardioversion Cardioversion: CONSCIOUS SEDATION REPORT DATE OF SERVICE: January 02, 2024 BRIEF HISTORY OF PRESENT ILLNESS: The patient is a 43-year-old male, currently admitted to [facility], with atrial fibrillation with RVR. The patient was seen in consultation by cardiology. Surface echocardiogram completed yesterday demonstrated an ejection fraction of 55 to 60%. The patient denied any prior anesthetic complications. He has no pre-existing lung conditions. I was asked to provide conscious sedation for the patient during his RODERICK this morning, followed by cardioversion by Dr. King. PHYSICAL EXAMINATION: VITAL SIGNS: Reviewed and were acceptable. GENERAL: The patient is an obese male, in no apparent distress, speaking in full sentences. HEENT: Normocephalic, atraumatic. Mucous membranes are moist and pink. Good mouth opening noted. Trachea is midline. Good neck mobility. CHEST: S1, S2 irregularly irregular. No murmurs, rubs or gallops were noted. LUNGS: Clear to auscultation bilaterally without appreciable wheezes, rales or rhonchi. ABDOMEN: Soft, nontender, nondistended. Positive bowel sounds. EXTREMITIES: There is no clubbing, cyanosis or edema. ASA Class: II DESCRIPTION OF PROCEDURE: After confirmation of informed consent, the patient's anesthesia plan was reviewed in detail. Propofol was chosen. Risks and benefits were reviewed and the patient agreed to proceed. At 1041, the patient was given his first bolus of propofol. In total, throughout the entire procedure, including transesophageal echocardiogram and cardioversion, the patient required 120 mg of propofol to achieve and maintain an appropriate level of sedation. The patient did ultimately receive a 200 J synchronized cardioversion by Dr. King at the bedside. This was successful in achieving normal sinus rhythm. The patient was monitored until 1056, at which time, he reached his baseline mental status and function. The patient tolerated the procedure well. COMPLICATIONS: None ESTIMATED BLOOD LOSS: None RECOMMENDATIONS: Okay to recover in usual fashion. Procedures Pulmonary Pulmonary Procedures /Diagnostic Testin Con Sedation 01/02/24 110 Date Zaheer Hannon CC: INSTRUCTIONAL TECHNOLOGY SPECIALIST-C Cheryl Sierra; Dr. Tina Olvera MD Date Dictated: 01/02/241104 Date Transcribed: 01/02/241104 Wool Hat Flanger: MIKE Signed Normal [facility] Discharge Instructionon 12-12 Discharge Instruction [facility] Medical Records Department [address] [place] [address] Instructions for Home/Discharge Instructions 01/02/24 1504 MR#: [id number] Acct: [id number] Name: ALMA CHANG Rep #: [id number] : 1980 43 From: Tina Olvera MD PCP: YESICA Bauer Status:DIS PREETHI Discharge Instructions Diet Discharge Diet: Light diet - advance as tolerated Activity Discharge Activity: - (Do not drive or operate heavy machinery for 24 hours) Follow Up Care Test Results: Test results from this visit will be discussed in further detail at your follow-up appointment, if applicable. Discharge Plan Admission Admit Date/Time: 01/01/24 14:17 Primary Reason for Your Visit: Afib rvr Attending Provider: Tina Olvera Primary Care Provider: Cheryl Sierra NP Consulting Providers: Juan José King Instructions Patient Instructions: AFib Additional Instructions / Restrictions: DISCHARGE INSTRUCTIONS PLEASE READ *Please take this with you to your next doctors appointment* -You will need to start amiodarone 400 mg twice daily which you will take tonight and for 3 more days and then 200 mg twice daily for 1 week and then once daily for an additional 3 weeks -You will also be discharged on 1 month of Xarelto -Please follow-up with cardiology upon discharge. If you do not hear from the office within 1-2 business days regarding scheduling please call their office to inquire about hospital follow-up. Referral to an EP doctor will occur through their office -It is strongly advised that you continue to maintain compliance with your CPAP -Please call your primary care provider's office upon discharge to schedule a hospital follow up within 1 week. -For any concerning signs or symptoms please call 911 or proceed to the nearest emergency department Discharge Orders/Prescriptions Prescriptions: New amiodarone 200 mg tablet See Rx Instructions .ROUTE .COMPLEX Qty: 49 0RF Rx Instructions: 400mg tonight and BID x3 days, 200mg BID x7 days, 200mg qday for three weeks Xarelto 20 mg tablet 20 mg PO DAILY Qty: 30 0RF Rx Instructions: must administer with evening meal Continued multivitamin [Daily Multi-Vitamin] Tablet 1 tab PO DAILY Referrals / Follow Up: [facility] [Provider Group] ( -Please follow-up with cardiology upon discharge. Please call their office to schedule hospital follow-up appointment upon discharge.) Cheryl Sierra NP, INSTRUCTIONAL TECHNOLOGY SPECIALIST-C [Primary Care Provider] - Within 1 Week Disposition Disposition (needs filled in before D/C Order can be placed): Home, Self Care 01/02/24 1514 Tina Olvera MD CC: YESICA Sierra; Dr. Juan José King MD Signed ADDENDUM by Dr. Tina Olvera MD on 01/02/24 at 1539 Return to work 01/05/24 with no restrictions 01/02/24 1539 Tina Olvera MD cc: YESICA Sierra; Dr. Juan José King MD * Signed Normal [facility] Discharge Instruction [facility] Medical Records Department [address] [place] [address] Instructions for Home/Discharge Instructions 01/02/24 1316 MR#: [id number] Acct: [id number] Name: ALMA CHANG Rep #: [id number] : 1980 43 From: Tina Olvera MD PCP: YESICA Bauer Status:DIS PREETHI Discharge Instructions Diet Discharge Diet: Light diet - advance as tolerated Activity Discharge Activity: - (Do not drive or operate heavy machinery for 24 hours) Follow Up Care Test Results: Test results from this visit will be discussed in further detail at your follow-up appointment, if applicable. Discharge Plan Admission Admit Date/Time: 01/01/24 14:17 Primary Reason for Your Visit: Afib rvr Attending Provider: Tina Olvera Primary Care Provider: Cheryl Sierra NP Consulting Providers: Juan José King Instructions Patient Instructions: AFib Additional Instructions / Restrictions: DISCHARGE INSTRUCTIONS PLEASE READ *Please take this with you to your next doctors appointment* -You will need to start amiodarone 400 mg twice daily which you will take tonight and for 3 more days and then 200 mg twice daily for 1 week -Please follow-up with cardiology upon discharge. If you do not hear from the office within 1-2 business days regarding scheduling please call their office to inquire about hospital follow-up. Referral to an EP doctor will occur through their office -It is strongly advised that you continue to maintain compliance with your CPAP -Please call your primary care provider's office upon discharge to schedule a hospital follow up within 1 week. -For any concerning signs or symptoms please call 911 or proceed to the nearest emergency department Discharge Orders/Prescriptions Prescriptions: New amiodarone 200 mg tablet See Rx Instructions .ROUTE .COMPLEX 10 Days Qty: 28 0RF Rx Instructions: 400mg tonight and BID x3 day then 200mg BID x7 days Continued multivitamin [Daily Multi-Vitamin] Tablet 1 tab PO DAILY Referrals / Follow Up: [facility] [Provider Group] ( -Please follow-up with cardiology upon discharge. Please call their office to schedule hospital follow-up appointment upon discharge.) Cheryl Sierra NP, INSTRUCTIONAL TECHNOLOGY SPECIALIST-C [Primary Care Provider] - Within 1 Week Disposition Disposition (needs filled in before D/C Order can be placed): Home, Self Care 01/02/24 1317 Tina Olvera MD CC: INSTRUCTIONAL TECHNOLOGY SPECIALIST-C Cheryl Sierra; Dr. Juan José King MD Signed Normal [facility] Echo Transesophageal (RODERICK)on 01-02-2024 Echo Transesophageal (RODERICK) [facility] [address] [place] [address] Echo Transesophageal (RODERICK) 01/02/24 1012 MR#: [id number] Acct: [id number] Name: ALMA CHANG Rep #: [id number] : 1980 43 From: Juan José King MD Attending Dr: Dr. Tina Olvera MD Status: DIS PREETHI Ordering Dr: Juan José King MD Date: 01/02/24 Location: [facility] Sex: M C Admitted: 01/01/24 Reason For Study: afib Medication RODERICK probe 6VT-D (SN [id number]) passed without difficulty. No complications were noted. Cetacaine Topical Deferiet given X3 orally. Performed a rapid injection of agitated mix of 9 cc saline and 1cc air to assess for atrial septal defect. 120mg Propofol. Left Ventricle Normal LV size. The estimated ejection fraction is 55 %. Right Ventricle Normal right ventricle. Atria Bubble contrast study negative for right to left interatrial shunt. Normal left atrium. No thrombus is detected in the left atrial appendage. Normal right atrium. Mitral Valve The mitral valve is structurally normal. No prolapse or stenosis seen. Tricuspid Valve Normal tricuspid valve. Aortic Valve Normal aortic valve. Pulmonic Valve The pulmonic valve is not well visualized. Vessels Normal ascending aorta. Pericardium No pericardial effusion. ECHO/Echo Transesophageal (RODERICK) Interpretation Summary RODERICK/transesophageal echo report; The estimated ejection fraction is 55 %. No thrombus is detected in the left atrial appendage. Bubble contrast study negative for right to left interatrial shunt. Structually normal valves. Ordering Physician: Juan José King Referring Physician: CHERYL SIERRA Performed By: Amber Kearney RCS 01/02/24 1517 Date Juan José King MD CC: YESICA Sierra; Dr. Juan José King MD; Dr. Tina Olvera MD Date Dictated: 01/02/24 1012 Date Transcribed: 01/02/24 1517 Wool Hat Flanger: Signed Normal [facility] Lipid Profileon 01-02-2024 Cholesterol [Mass/Vol] 218 mg/dL High 200 [facility] Comment on above: Order Comment: Comme nts: Fasting Lipid Profile Result Comment: <200 mg/dL Desirable 200-240 mg/dL Borderline >240 mg/dL High Risk Performed By: #### L 501.5200, L100.0100, L500.4100, L500.2500 ####[facility] [address] [place], [address] Cholesterol in HDL [Mass/Vol] 67 mg/dL Normal [facility] Comment on above: Order Comment: Comme nts: Fasting Lipid Profile Result Comment: The drugs N-Acetylcysteine and Metamizole may falsely depress this assay. Reference Range HDL <40 mg/dL Low HDL Cholesterol HDL >or= 60 mg/dL High HDL Cholesterol Performed By: #### L 501.5200, L100.0100, L500.4100, L500.2500 ####[facility] [address] [place], [address] Cholesterol in LDL [Mass/Vol] 129 mg/dL Normal 0-130 [facility] Comment on above: Order Comment: Comme nts: Fasting Lipid Profile Performed By: #### L 501.5200, L100.0100, L500.4100, L500.2500 ####[facility] [address] [place], [address] Cholesterol in VLDL [Mass/Vol] 22 mg/dL Normal 5-40 [facility] Comment on above: Order Comment: Comme nts: Fasting Lipid Profile Performed By: #### L 501.5200, L100.0100, L500.4100, L500.2500 ####[facility] [address] [place], [address] Triglyceride [Mass/Vol] 110 mg/dL Normal [facility] Comment on above: Order Comment: Comme nts: Fasting Lipid Profile Result Comment: The drugs N-Acetylcysteine and Metamizole may falsely depress this assay. Serum Triglycerides Reference Interval Normal <150 mg/dL Borderline high 150 - 199 mg/dL High 200 - 499 mg/dL Very High > or = 500 mg/dL Performed By: #### L 501.5200, L100.0100, L500.4100, L500.2500 ####[facility] [address] [place], [address] Magnesiumon 01-02-2024 Magnesium [Mass/Vol] 2.4 mg/dL Normal 1.6-2.6 [facility] Comment on above: Order Comment: Comme nts: Fasting Lipid Profile Performed By: #### L 501.5200, L100.0100, L500.4100, L500.2500 ####[facility] [address] [place], [address] Partial Thromboplast Timeon 01-02-2024 aPTT Coag (Bld) [Time] 46.7 s High 24.1-36.2 [facility] Comment on above: Order Comment: Comme nts: heparin gtt Performed By: #### L 300.4310 ####[facility] [address] [place], [address] aPTT Coag (Bld) [Time] 105.0 s Invalid Interpretation Code 24.1-36.2 [facility] Comment on above: Result Comment: [facility] VAL[facility]/02[facility] 0625 Sarai Rios. RESULTS READ BACK BY SAME. Performed By: #### L 300.4310 ####[facility] [address] [place], [address] Prothrombin Time w/INRon INR Coag (PPP) [Relative time] 1.0 {INR} Normal [facility] Comment on above: Performed By: #### L 300.3900 ####[facility] [address] [place], [address] PT Coag (PPP) [Time] 13.5 s Normal 11.7-14.9 [facility] Comment on above: Performed By: #### L 300.3900 ####[facility] [address] [place], [address] 12 Lead EKGon 01-01-2024 12 Lead EKG [facility] Cardi[facility] Services [address] [place] [address] 12 Lead EKG 01/01/24 1043 MR#: [id number] Acct: [id number] Name: ALMA CHANG Rep #: [id number] : 1980 43 From: Juan José King MD Attending Dr: Dr. Tina Olvera MD Status: DIS PREETHI Ordering Dr: Stef Antunez DO Date: 01/01/24 Location: [facility] Sex: M C Admitted: 01/01/24 Test Reason : PALPS Blood Pressure : */* mmHG Vent. Rate : 148 BPM Atrial Rate : * BPM P-R Int : * ms QRS Dur : 78 ms QT Int : 286 ms P-R-T Axes : * 55 8 degrees QTcB Int : 449 ms Critical Test Result: High HR Atrial fibrillation with rapid ventricular response with premature ventricular or aberrantly conducted complexes Abnormal ECG Confirmed by JUAN JOSÉ KING ([id number]), technical editor KAPIL ASHTON ([id number]) on 01/02/2024 11:53:20 AM Referred By: Confirmed By: JUAN JOSÉ KING 01/02/24 1153 Date Juan José King MD CC: YESICA Sierra; Dr. Stef Antunez DO; Dr. Tina Olvera MD Signed Normal [facility] Basic Metabolic Profile (BMP )on 01-01-2024 BUN/CRE 14.2 RATIO Normal 11-29 [facility] Comment on above: Order Comment: 'TROP ' Serial specimen #1, #2 or #3: 1 Performed By: #### L 501.9520, L300.3900, L500.2500, L501.5200, L300.4310, L100.0100, L500.3400, L501.4020 #### [facility] [address] [place], [address] CA,Total 9.2 mg/dL Normal 8.5-10.1 [facility] Comment on above: Order Comment: 'TROP ' Serial specimen #1, #2 or #3: 1 Performed By: #### L 501.9520, L300.3900, L500.2500, L501.5200, L300.4310, L100.0100, L500.3400, L501.4020 #### [facility] [address] [place], [address] Chloride [Moles/Vol] 108 mmol/L High 98-107 [facility] Comment on above: Order Comment: 'TROP ' Serial specimen #1, #2 or #3: 1 Performed By: #### L 501.9520, L300.3900, L500.2500, L501.5200, L300.4310, L100.0100, L500.3400, L501.4020 #### [facility] [address] [place], [address] CO2 [Moles/Vol] 26.0 mmol/L Normal 21.0-32.0 [facility] Comment on above: Order Comment: 'TROP ' Serial specimen #1, #2 or #3: 1 Performed By: #### L 501.9520, L300.3900, L500.2500, L501.5200, L300.4310, L100.0100, L500.3400, L501.4020 #### [facility] [address] [place], [address] Creatinine [Mass/Vol] 1.20 mg/dL Normal 0.70-1.30 [facility] Comment on above: Order Comment: 'TROP ' Serial specimen #1, #2 or #3: 1 Result Comment: The validity of the calculated GFR GFRAA in patients over 70 years has not been determined. Clinical correlation is essential. Performed By: #### L 501.9520, L300.3900, L500.2500, L501.5200, L300.4310, L100.0100, L500.3400, L501.4020 #### [facility] [address] [place], [address] ECRCL 100.21 ml/min Normal [facility] Comment on above: Order Comment: 'TROP ' Serial specimen #1, #2 or #3: 1 Performed By: #### L 501.9520, L300.3900, L500.2500, L501.5200, L300.4310, L100.0100, L500.3400, L501.4020 #### [facility] [address] [place], [address] EST GFR - AA 86 mL/min Normal >60 [facility] Comment on above: Order Comment: 'TROP ' Serial specimen #1, #2 or #3: 1 Result Comment: Afri can Finnish GFR Calc Performed By: #### L 501.9520, L300.3900, L500.2500, L501.5200, L300.4310, L100.0100, L500.3400, L501.4020 #### [facility] [address] [place], [address] GAP 5 Normal 5-15 [facility] Comment on above: Order Comment: 'TROP ' Serial specimen #1, #2 or #3: 1 Performed By: #### L 501.9520, L300.3900, L500.2500, L501.5200, L300.4310, L100.0100, L500.3400, L501.4020 #### [facility] [address] [place], [address] GFR/1.73 sq M.predicted among non-blacks MDRD (S/P/Bld) [Vol rate/Area] 71 mL/min/{1.73_m2} Normal >60 [facility] Comment on above: Order Comment: 'TROP ' Serial specimen #1, #2 or #3: 1 Result Comment: Non- GFR Calc Performed By: #### L 501.9520, L300.3900, L500.2500, L501.5200, L300.4310, L100.0100, L500.3400, L501.4020 #### [facility] [address] [place], [address] Glucose [Mass/Vol] 94 mg/dL Normal 74-106 [facility] Comment on above: Order Comment: 'TROP ' Serial specimen #1, #2 or #3: 1 Performed By: #### L 501.9520, L300.3900, L500.2500, L501.5200, L300.4310, L100.0100, L500.3400, L501.4020 #### [facility] [address] [place], [address] Potassium [Moles/Vol] 4.0 mmol/L Normal 3.5-5.1 [facility] Comment on above: Order Comment: 'TROP ' Serial specimen #1, #2 or #3: 1 Performed By: #### L 501.9520, L300.3900, L500.2500, L501.5200, L300.4310, L100.0100, L500.3400, L501.4020 #### [facility] [address] [place], [address] Sodium [Moles/Vol] 139 mmol/L Normal 136-145 [facility] Comment on above: Order Comment: 'TROP ' Serial specimen #1, #2 or #3: 1 Performed By: #### L 501.9520, L300.3900, L500.2500, L501.5200, L300.4310, L100.0100, L500.3400, L501.4020 #### [facility] [address] [place], [address] Urea nitrogen [Mass/Vol] 17 mg/dL Normal 7-18 [facility] Comment on above: Order Comment: 'TROP ' Serial specimen #1, #2 or #3: 1 Performed By: #### L 501.9520, L300.3900, L500.2500, L501.5200, L300.4310, L100.0100, L500.3400, L501.4020 #### [facility] [address] [place], [address] CBC W/Diff, Automatedon 11-2 Absolute Lymph 3.23 X10 3/uL Normal 0.83-4.51 [facility] Comment on above: Performed By: #### L 501.9520, L300.3900, L500.2500, L501.5200, L300.4310, L100.0100, L500.3400, L501.4020 #### [facility] [address] [place], [address] Absolute Neut 3.3 X10 3/uL Normal 2.0-7.7 [facility] Comment on above: Performed By: #### L 501.9520, L300.3900, L500.2500, L501.5200, L300.4310, L100.0100, L500.3400, L501.4020 #### [facility] [address] [facility] [place], [address] Basophils/100 WBC (Bld) 0.5 % Normal 0-1 [facility] Comment on above: Performed By: #### L 501.9520, L300.3900, L500.2500, L501.5200, L300.4310, L100.0100, L500.3400, L501.4020 #### [facility] [address] [place], [address] Eosinophils/100 WBC (Bld) 1.3 % Normal 0-5 [facility] Comment on above: Performed By: #### L 501.9520, L300.3900, L500.2500, L501.5200, L300.4310, L100.0100, L500.3400, L501.4020 #### [facility] [address] [place], [address] Erythrocyte distribution width (RBC) [Ratio] 12.7 % Normal 11.6-14.6 [facility] Comment on above: Performed By: #### L 501.9520, L300.3900, L500.2500, L501.5200, L300.4310, L100.0100, L500.3400, L501.4020 #### [facility] [address] [place], [address] Hematocrit (Bld) [Volume fraction] 49.7 % Normal 40-54 [facility] Comment on above: Performed By: #### L 501.9520, L300.3900, L500.2500, L501.5200, L300.4310, L100.0100, L500.3400, L501.4020 #### [facility] [address] [place], [address] Hemoglobin (Bld) [Mass/Vol] 17.3 g/dL High 13.0-16.5 [facility] Comment on above: Performed By: #### L 501.9520, L300.3900, L500.2500, L501.5200, L300.4310, L100.0100, L500.3400, L501.4020 #### [facility] [address] [place], [address] IG% 0.300 Normal 0.0-0.9 [facility] Comment on above: Result Comment: IG% - Immature Granulocytes (promyelocytes, myelocytes and metamyelocytes) > 1% indicates that a LEFT SHIFT is Present. Performed By: #### L 501.9520, L300.3900, L500.2500, L501.5200, L300.4310, L100.0100, L500.3400, L501.4020 #### [facility] [address] [place], [address] Lymphocytes/100 WBC (Bld) 43.2 % High 19-41 [facility] Comment on above: Performed By: #### L 501.9520, L300.3900, L500.2500, L501.5200, L300.4310, L100.0100, L500.3400, L501.4020 #### [facility] [address] [place], [address] MCH (RBC) [Entitic mass] 30.1 pg Normal 27.0-32.0 [facility] Comment on above: Performed By: #### L 501.9520, L300.3900, L500.2500, L501.5200, L300.4310, L100.0100, L500.3400, L501.4020 #### [facility] [address] [place], [address] MCHC (RBC) [Mass/Vol] 34.8 g/dL Normal 32-36 [facility] Comment on above: Performed By: #### L 501.9520, L300.3900, L500.2500, L501.5200, L300.4310, L100.0100, L500.3400, L501.4020 #### [facility] [address] [place], [address] MCV (RBC) [Entitic vol] 86.6 fL Normal 80-94 [facility] Comment on above: Performed By: #### L 501.9520, L300.3900, L500.2500, L501.5200, L300.4310, L100.0100, L500.3400, L501.4020 #### [facility] [address] [place], [address] Monocytes/100 WBC (Bld) 10.4 % High 0-10 [facility] Comment on above: Performed By: #### L 501.9520, L300.3900, L500.2500, L501.5200, L300.4310, L100.0100, L500.3400, L501.4020 #### [facility] [address] [place], [address] Neutrophils/100 WBC (Bld) 44.3 % Low 47-70 [facility] Comment on above: Performed By: #### L 501.9520, L300.3900, L500.2500, L501.5200, L300.4310, L100.0100, L500.3400, L501.4020 #### [facility] [address] [place], [address] Nucleated RBC (Bld) [#/Vol] 0 10*3/uL Normal 0-5 [facility] Comment on above: Performed By: #### L 501.9520, L300.3900, L500.2500, L501.5200, L300.4310, L100.0100, L500.3400, L501.4020 #### [facility] [address] [place], [address] Platelet mean volume (Bld) [Entitic vol] 8.9 fL Normal 6.2-12.0 [facility] Comment on above: Performed By: #### L 501.9520, L300.3900, L500.2500, L501.5200, L300.4310, L100.0100, L500.3400, L501.4020 #### [facility] [address] [place], [address] Platelets (Bld) [#/Vol] 426 10*3/uL Normal 150-450 [facility] Comment on above: Performed By: #### L 501.9520, L300.3900, L500.2500, L501.5200, L300.4310, L100.0100, L500.3400, L501.4020 #### [facility] [address] [place], [address] RBC (Bld) [#/Vol] 5.74 10*6/uL Normal 4.6-6.2 [facility] Comment on above: Performed By: #### L 501.9520, L300.3900, L500.2500, L501.5200, L300.4310, L100.0100, L500.3400, L501.4020 #### [facility] [address] [place], [address] RDW SD 39.7 fl Normal 35.1-43.9 [facility] Comment on above: Performed By: #### L 501.9520, L300.3900, L500.2500, L501.5200, L300.4310, L100.0100, L500.3400, L501.4020 #### [facility] [address] [place], [address] WBC (Bld) [#/Vol] 7.5 10*3/uL Normal 4.4-11.0 [facility] Comment on above: Performed By: #### L 501.9520, L300.3900, L500.2500, L501.5200, L300.4310, L100.0100, L500.3400, L501.4020 #### [facility] [address] [place], [address] Chest 1 View (Portable)on Chest 1 View (Portable) [facility] Imaging Services [address] [place] [address] Chest 1 View (Portable) MR#: [id number] Acct: [id number] Name: ALMA CHANG Rep #: [id number] : 1980 M 43 From: Roberto bailey MD PCP: Cheryl Sierra, INSTRUCTIONAL TECHNOLOGY SPECIALIST-C Status: DIS PREETHI Study: Chest 1 View (Portable) Date of Exam: 01/01/24 Exam# [id number] Ordering Dr: Stef Antunez DO [id number] STUDY: X-RAY CHEST REASON FOR EXAM: Male, 43 years old. Chest pain TECHNIQUE: Single AP portable view of the chest. COMPARISON: None. FINDINGS: The lungs are clear and expanded. There is no demonstrated pleural abnormality. Normal size heart. Normal mediastinum and wendie. Normal visualized pulmonary arteries. Normal visualized aortic arch and descending thoracic aorta. Normal visualized thoracic spine. Normal visualized ribs, clavicles, and shoulders. There is no demonstrated abnormality of the visualized soft tissue structures of the upper abdomen. RAD/Chest 1 View (Portable) IMPRESSION: Normal x-ray examination of the chest. Electronically Signed: Roberto Ramirez MD at 11:29 EST Reading Location ID and State: [facility] / [place] , Service support , CC: YESICA Sierra; Dr. Stef Antunez DO Wool Hat Flanger: Signed Normal [facility] Consultation - Cardiologyon 01-01-2024 Consultation - Cardiology [facility] Medical Records Department [address] [place] [address] Consultation - Cardiology 01/01/24 1449 MR#: [id number] Acct: [id number] Name: ALMA CHANG Rep #: [id number] : 1980 43 From: Juan José King MD PCP: YESICA Bauer Status:DIS PREETHI Location: [place] [address] Assessment Plan Assessment/Plan (1) Atrial fibrillation with RVR: PLAN: 43-year-old patient With history of paroxysmal atrial fibrillation Seen here at [facility]/cardiology team in 2019 diagnosed with A-fib with RVR And started on anticoagulation at that time with Xarelto in addition to calcium channel norma. He been doing well over the last 4 years. Last night he had symptoms of palpitation lightheadedness and dizziness. And he came in to the ER today as his symptoms continue to get worse by time he came into the ER his heart rate within the range of around 140s with A-fib and RVR Patient has been seen before by Dr. Farley, for A-fib and RVR start him on anticoagulation with Xarelto as well as rate control using calcium channel norma. Cardiac care plan recommendations; I recommended to admit him at the progressive care unit Will start on heparin drip in addition to amiodarone. If he does not convert to sinus rhythm we will plan for RODERICK guided cardioversion in the morning. As well will repeat an echocardiogram to assess his LV systolic function Annual follow-up clinically. Patient is active does not have any other medical problems. Patient has been stable clinically blood pressure oxygen saturation within normal I reviewed the lab result his hemoglobin is 17.3 hematocrit 49.7 and platelet count 426 is potassium is 4.0 with a creatinine of 1.2 he does not have any active symptoms of chest pain. I did discuss with him the long-term management based on [id number] score his risk is low for stroke Patient had a history of obstructive sleep apnea and he has been on CPAP. Patient has no history of diabetes no history of hypertension does not have a history of stroke. Therefore recommendation would be just to start on the IV amiodarone in addition to heparin and try to convert him to sinus rhythm Long-term cardiac care plan will include to discuss possible A-fib ablation if he had any further recurrence. Will evaluate by echocardiogram to assess his LV function. HPI Consult Data Date of Consult: 01/01/24 HPI Narrative Reason for Consultation: A-fib with RVR HPI Narrative: ALMA CHANG, is a 43 M who presents [facility] Medical History (Updated 01/01/24 @ 12:[address] Stef Antunez, DO) Atrial fibrillation Home Medications ???Medication ???Instructions ???Recorded ???Last Taken ???Type multivitamin (Daily Multi-Vitamin 1 tab PO DAILY 01/01/24 Unknown History tablet) Allergy/AdvReac Type Severity Reaction Status Date / Time penicillin G AdvReac Hives Verified 01/01/24 10:48 sulfamethoxazole (From AdvReac Hives Verified 01/01/24 10:48 Bactrim) trimethoprim (From Bactrim) AdvReac Hives Verified 01/01/24 10:48 Social History Smoking Status: Never smoker Physical Exam Cardio Cardio Narrative: Patient seen and evaluated in the ED Family at bedside his His front desk monitor showed A-fib with RVR Cardiac exam S1-S2 is irregular Chest exam is clear to auscultation bilateral Examination lower extremity no lower extremity edema Pedal pulses palpable. Risk Stratification Risk Stratification Applicable: No Objective Data Vital Signs: Vital Signs Temp Pulse Resp BP Pulse Ox O2 Del Method 96.2 F L 97 17 116/66 96 Room Air 01/01/24 14:05 01/01/24 14:45 01/01/24 14:45 01/01/24 14:45 01/01/24 14:45 01/01/24 14:45 Oxygen Delivery Method Room Air Weight: 233 lb Body Mass Index (BMI) 32.5 Intake Output: Intake and Output for Last 24 Hours 12/30/23 12/31/23 01/01/24 23:59 23:59 23:59 Intake Total 132.61 / 132.61 Balance 132.61 / 132.61 Lab / Micro Data 01/01/24 11:05 01/01/24 11:05 Labs: Laboratory Results - last 24 hr 01/01/24 11:05: WBC 7.5, RBC 5.74, Hgb 17.3 H, Hct 49.7, MCV 86.6, MCH 30.1, MCHC 34.8, RDW Std Deviation 39.7, RDW Coeff of Joey 12.7, Plt Count 426, MPV 8.9, Immature Gran % (Auto) 0.300, Neut % (Auto) 44.3 L, Lymph % (Auto) 43.2 H, [place] % (Auto) 10.4 H, Eos % (Auto) 1.3, Baso % (Auto) 0.5, Absolute Neuts (auto) 3.3, Absolute Lymphs (auto) 3.23, Nucleated RBC % 0, PT 13.5, INR 1.0, APTT 34.9, Sodium 139, Potassium 4.0, Chloride 108 H, Carbon Dioxide 26.0, Anion Gap 5, BUN 17, Creatinine 1.20, Estim Creat Clear Calc 100.21, Est GFR (MDRD) Af Amer 86, Est GFR (MDRD) Non-Af 71, BUN/Creatinine Ratio 14.2, Glucose 94, Calcium 9.2, Magnesium 2.2, Total Bilirubin 1.00, Direct Bilirubin 0.22, AST 30, ALT 35, Alkali (more content not included)... Normal [facility] Echo Completeon 01-01-2024 Echo Complete [facility] Cardiovascular Services [address] [place] [address] Echo Complete 01/01/24 1501 MR#: [id number] Acct: [id number] Name: ALMA CHANG Rep #: [id number] : 1980 43 From: Juan José King MD Attending Dr: Dr. Tina Olvera MD Status: DIS PREETHI Ordering Dr: Tina Olvera MD Date: 01/01/24 Location: [facility] Sex: M C Admitted: 01/01/24 Reason For Study: ARRHYTHMIA Procedure This was a 2D Doppler, Color Flow transthoracic echocardiogram. Exam performed portable in patient room. Left Ventricle Normal left ventricle. The estimated ejection fraction is 55-60 %. Right Ventricle Normal right ventricle. Normal systolic function. Atria Normal left atrium. Normal right atrium. Mitral Valve The mitral valve is structurally normal. No prolapse or stenosis seen. Tricuspid Valve Normal tricuspid valve. Aortic Valve Trisinus/trileaflet aortic valve. Pulmonic Valve The pulmonic valve is not well visualized. Great Vessels Normal aortic root. Pericardium/Pleural No pericardial effusion. MMode/2D Measurements Calculations LVIDd: 4.3 cm IVSd: 1.4 cm LVOT diam: 2.3 cm LVIDs: 3.0 cm LVPWd: 1.0 cm LVOT area: 4.1 cm2 RVDd: 3.9 cm FS: 29.1 % asc Aorta Diam: 3.0 cm LAV(MOD-bp): 29.4 ml LVAd ap4: 23.6 cm2 LAV(MOD-bp) Indexed: 13.1 ml/m2 LVLd ap4: 7.8 cm LAV(MOD-sp2): 34.5 ml EDV(MOD-sp4): 59.4 ml LAV(MOD-sp4): 24.2 ml EDV(sp4-el): 61.1 ml LVAs ap4: 14.5 cm2 LVLs ap4: 6.8 cm ESV(MOD-sp4): 27.0 ml ESV(sp4-el): 26.3 ml EF(MOD-sp4): 54.5 % EF(sp4-el): 56.9 % LVAd ap2: 16.8 cm2 SV(MOD-sp4): 32.4 ml SV(MOD-sp2): 18.6 ml LVLd ap2: 6.6 cm SI(MOD-sp4): 14.4 ml/m2 SI(MOD-sp2): 8.3 ml/m2 EDV(MOD-sp2): 36.8 ml EDV(sp2-el): 36.4 ml LVAs ap2: 10.8 cm2 LVLs ap2: 5.3 cm ESV(MOD-sp2): 18.1 ml ESV(sp2-el): 18.7 ml EF(MOD-sp2): 50.6 % SV(sp4-el): 34.7 ml Ao sinus diam: 3.[address] Junction: 2.7 cm LA dimension(2D): 3.7 cm LA A4 area: 12.1 cm2 RA A4 area: 11.0 cm2 TAPSE: 1.7 cm Time Measurements MV dec time: 0.13 sec Doppler Measurements Calculations MV E max carolann: 58.2 cm/sec Lat Peak E' Carolann: 13.9 cm/sec Med Peak E' Carolann: 14.6 cm/sec E/E' lat: 4.2 E/E' med: 4.0 Ao V2 max: 92.9 cm/sec LV V1 max: 68.6 cm/sec SV(LVOT): 43.9 ml Ao max P.5 mmHg LV V1 max P.9 mmHg Ao V2 mean: 66.3 cm/sec LV V1 mean P.1 mmHg Ao mean P.9 mmHg LV V1 mean: 51.8 cm/sec Ao V2 VTI: 13.9 cm LV V1 VTI: 10.7 cm AV (velocity ratio): 0.77 BERNARD(I,D): 3.2 cm2 BERNARD(V,D): 3.0 cm2 PA V2 max: 78.2 cm/sec TR max carolann: 176.1 cm/sec TR max P.4 mmHg ECHO/Echo Complete Interpretation Summary The estimated ejection fraction is 55-60 %. Normal LV systolic function No significant valvular abnormality Ordering Physician: Tina Olvera Performed By: Anjelica Nixon RDCS 01/01/24 1555 Date Juan José King MD CC: YESICA Sierra; Dr. Tina Olvera MD Date Dictated: 01/01/24 1501 Date Transcribed: 01/01/24 1555 Wool Hat Flanger: Signed Normal [facility] Emergency Department Summary on 01-01-2024 Emergency Department Summary [facility] Medical Records Department [address] [facility] [address] [place] [address] Emergency Department Summary 01/01/24 MR#: [id number] Acct: [id number] Name: ALMA CHANG Rep #: [id number] : 1980 43 From: Stef Antunez DO PCP: YESICA Bauer Status:DIS PREETHI Location: [address] History of Present Illness Chief Complaint: Palpitations Informant: patient and spouse/S.O. Narrative Narrative: 43-year-old male with a prior history of atrial fibrillation presenting to the emergency room with palpitations. Patient states that last night while laying in bed at around 2330 hrs. he began to feel his heartbeat irregular. He states that in the past it had resolved with time but when he woke this morning it continued to be irregular. He notes a tightness in the chest but no pain. No significant dyspnea. He states he is not currently on any medications. At 1 point he was taking what sounds like diltiazem as well as Xarelto. He had had an echocardiogram as part of his workup with cardiology. He does have a history of sleep apnea and does wear CPAP therapy. [facility] Medical History (Updated 01/01/24 @ 12:[address] Stef Antunez, ) Atrial fibrillation Home Medications ???Medication ???Instructions ???Recorded ???Last Taken ???Type multivitamin (Daily Multi-Vitamin 1 tab PO DAILY 01/01/24 Unknown History tablet) Allergy/AdvReac Type Severity Reaction Status Date / Time penicillin G AdvReac Hives Verified 01/01/24 10:48 sulfamethoxazole (From AdvReac Hives Verified 01/01/24 10:48 Bactrim) trimethoprim (From Bactrim) AdvReac Hives Verified 01/01/24 10:48 Social History Smoking Status: Never smoker [facility] ED Constitutional Constitutional ED: Denies chills, fever(s) or weight loss Eyes Eyes: Denies change in vision or diplopia ENT ENT ED: Denies ear pain, rhinorrhea or sore throat Cardiovascular Cardiovascular: Reports palpitations and racing heartbeat; Denies chest pain or orthopnea Respiratory/Chest Respiratory/Chest: Denies cough, dyspnea or orthopnea Gastrointestinal Gastrointestinal: Denies abdominal pain, diarrhea, nausea or vomiting Genitourinary Genitourinary ED: Denies dysuria, hematuria or urinary frequency Musculoskeletal Musculoskeletal: Denies arthralgias or myalgias Integumentary Denies abscess or rash Neurologic Neurologic: Denies headache(s) or weakness Psychiatric Psychiatric: Denies anxiety, depression, suicidal ideation or suicidal thoughts Endocrine Endocrinology: Denies polydipsia, polyphagia or polyuria Allergic/Immunologic Allergic/Immunologic ED: Denies mouth swelling, tongue swelling or urticaria EXAM Physical Exam Const Vital Signs: 01/01/24 10:45 01/01/24 11:06 01/01/24 11:45 Temperature 96.2 F L Temperature Source Temporal Pulse Rate 148 H 148 H Respiratory Rate 16 18 Respiratory Effort Normal Non-Labored Blood Pressure 113/65 91/65 Blood Pressure Mean 81 73 Pulse Ox 98 99 Oxygen Delivery Method Room Air Room Air 01/01/24 12:51 01/01/24 13:00 01/01/24 13:36 Temperature Temperature Source Pulse Rate 141 H 106 H 96 Respiratory Rate 21 H 18 17 Respiratory Effort Blood Pressure 110/69 109/77 Blood Pressure Mean 82 87 Pulse Ox 99 96 Oxygen Delivery Method Room Air Positive well nourished and well developed General Appearance ED: well developed and NAD HEENT Reports normocephalic, head/scalp atraumatic and moist mucous membranes Eyes PERRL and EOMs intact bilaterally Neck no lymphadenopathy, supple and no JVD Resp normal respiratory effort and clear to auscultation bilaterally Cardio no murmurs Rate: tachycardic Rhythm: abnormal rhythm irregularly irregular GI normal to inspection, nondistended, normoactive bowel sounds and non-tender Palpation: soft Back/Spine no CVA tenderness and normal ROM Extremity normal to inspection General Extremety ED: Negative for edema General Extremity: Negative for edema Neuro oriented x3 and CN's II-XII intact bilaterally Sensorium / Orientation: alert Motor Exam: strength 5/5 throughout Psych mental status grossly normal Mood Affect: Negative for depressed or tearful Skin no rashes or lesions noted and no wounds MDM MDM MDM Narrative Medical decision making narrative: Differential diagnosis includes but not limited to acute coronary syndrome cardiac dysrhythmia electrolyte abnormalities hyper or hypothyroidism dehydration anemia EKG shows atrial fibrillation with rapid ventricular response at a rate of [address] depression or elevation is noted. White count 7.5 hemoglobin 17.3 with platelet count of 426. Sodium potassium magnesium within normal limits. Tr (more content not included)... Normal [facility] H AND P Exam - Hospitaliston 01-01-2024 H&P Exam - Hospitalist [facility] Medical Records Department [address] [place] [address] H P Exam - Hospitalist 01/01/24 1417 MR#: [id number] Acct: [id number] Name: ALMA CHANG Rep #: [id number] : 1980 43 From: Tina Olvera MD PCP: YESICA Bauer Status:DIS PREETHI [id number] - General General Date of Admission: 01/01/24 Date of Service: 01/01/24 Chief Complaint: Fluttering in chest HPI Narrative ALMA CHANG, is a 43-year-old male past medical history of A-fib presented [facility] ED 01/01/2024 for palpitations. At 11:30 PM last night he began to feel an irregular heartbeat and in the past it is resolved by the time he woke up in the morning however today it continued to be irregular and he developed some chest tightness with this prompting him to come to the emergency department. Had no significant dyspnea or overt chest pain but was found to be in A- fib with RVR. Cardiology contacted and recommended heparin and Cardizem, he was then evaluated by cardiology and they recommended Amio and hospital admission and they will see him in consultation. of note patient does have history of A-fib and was cardioverted in 2019 and took medication for a year and then was taken off of it. He had no further episodes until last night so he is not presently on medication. Hospitalist contacted for admission. Patient evaluated at bedside. He reports history as above, has not had any recent problems with palpitations until last night, today when he could feel his heart racing he was intermittently lightheaded with some chest tightness and shortness of breath, the symptoms have resolved since rate has gotten under control but he is still acutely aware that his heart rate is out of rhythm. Does report compliance with his CPAP, occasionally will miss a day but overall does wear this. He reports he will usually drink coffee or pop daily but does not drink energy drinks, he started medication for ADHD but is no longer on them. Does have some difficulty with sleeping and has poor sleep due to his work and work hours but otherwise has no new or acute complaints. Patient denies any significant alcohol use, no substance use, no tobacco use [facility] Medical History (Updated 01/01/24 @ 12:[address] Stef Antunez, DO) Atrial fibrillation Home Medications ???Medication ???Instructions ???Recorded ???Last Taken ???Type multivitamin (Daily Multi-Vitamin 1 tab PO DAILY 01/01/24 Unknown History tablet) Allergy/AdvReac Type Severity Reaction Status Date / Time penicillin G AdvReac Hives Verified 01/01/24 10:48 sulfamethoxazole (From AdvReac Hives Verified 01/01/24 10:48 Bactrim) trimethoprim (From Bactrim) AdvReac Hives Verified 01/01/24 10:48 Social History Smoking Status: Never smoker ROS ROS Narrative General: Denies fever/chills HENT: Denies headache, denies stuffy nose, denies sore throat EYES: Denies changes in vision Resp: Denies cough, denies shortness of breath Cardiac: Still feels fluttering in his chest GI: Denies abdominal pain, denies changes in bowel, denies nausea/vomiting : Denies changes in urination Extremity: Denies swelling MSK: Denies weakness Neuro: Denies any numbness/tingling Heme: Denies any bleeding or bruising Skin: Denies rashes Psychiatric: No complaints voiced Vital Signs Vital Signs Vital Signs: 01/01/24 10:45 01/01/24 11:06 01/01/24 11:45 Temperature 96.2 F L Temperature Source Temporal Pulse Rate 148 H 148 H Respiratory Rate 16 18 Respiratory Effort Normal Non-Labored Blood Pressure 113/65 91/65 Blood Pressure Mean 81 73 Pulse Ox 98 99 Oxygen Delivery Method Room Air Room Air 01/01/24 12:51 01/01/24 13:00 01/01/24 13:36 Temperature Temperature Source Pulse Rate 141 H 106 H 96 Respiratory Rate 21 H 18 17 Respiratory Effort Blood Pressure 110/69 109/77 Blood Pressure Mean 82 87 Pulse Ox 99 96 Oxygen Delivery Method Room Air 01/01/24 14:00 01/01/24 14:05 Temperature 96.2 F L Temperature Source Pulse Rate 111 H 96 Respiratory Rate 19 H 17 Respiratory Effort Blood Pressure 106/55 L 109/77 Blood Pressure Mean 72 87 Pulse Ox 98 96 Oxygen Delivery Method Weight Weight: 105.687 kg Body Mass Index (BMI) 32.5 Physical Exam Narrative General: Alert, oriented, no apparent distress HEENT: Atraumatic, normocephalic Eyes: Anicteric, normal conjunctiva, extraocular movements grossly intact Neck: Supple Respiratory: Clear to auscultation bilaterally, normal respiratory effort Cardiovascular: Irregularly irregular GI: Soft, nontender, nondistended Extremities: No edema Musculoskeletal: Moving all extremities N (more content not included)... Normal [facility] L501.4020on 01-01-2024 TROPONIN-I HS 7 pg/mL Normal 3.0-78.0 [facility] Comment on above: Order Comment: 'TROP ' Serial specimen #1, #2 or #3: 1 Result Comment: Feng avery Note: New Test Units and Gender Specific Reference Ranges. For more information see Policy Stat Procedure Gove High Sensitivity Troponin (TNIH) and attachments. Performed By: #### L 501.9520, L300.3900, L500.2500, L501.5200, L300.4310, L100.0100, L500.3400, L501.4020 #### [facility] [address] [place], [address] Liver Profileon 01-01-2024 Albumin [Mass/Vol] 4.3 g/dL Normal 3.2-5.0 [facility] Comment on above: Order Comment: 'TROP ' Serial specimen #1, #2 or #3: 1 Performed By: #### L 501.9520, L300.3900, L500.2500, L501.5200, L300.4310, L100.0100, L500.3400, L501.4020 #### [facility] [address] [place], [address] ALK P 79 U/L Normal 45-117 [facility] Comment on above: Order Comment: 'TROP ' Serial specimen #1, #2 or #3: 1 Performed By: #### L 501.9520, L300.3900, L500.2500, L501.5200, L300.4310, L100.0100, L500.3400, L501.4020 #### [facility] [address] [place], [address] ALT [Catalytic activity/Vol] 35 U/L Normal 16-61 [facility] Comment on above: Order Comment: 'TROP ' Serial specimen #1, #2 or #3: 1 Performed By: #### L 501.9520, L300.3900, L500.2500, L501.5200, L300.4310, L100.0100, L500.3400, L501.4020 #### [facility] [address] [place], [address] AST [Catalytic activity/Vol] 30 U/L Normal 15-37 [facility] Comment on above: Order Comment: 'TROP ' Serial specimen #1, #2 or #3: 1 Performed By: #### L 501.9520, L300.3900, L500.2500, L501.5200, L300.4310, L100.0100, L500.3400, L501.4020 #### [facility] [address] [place], [address] Bilirubin [Mass/Vol] 1.00 mg/dL Normal 0.20-1.00 [facility] Comment on above: Order Comment: 'TROP ' Serial specimen #1, #2 or #3: 1 Result Comment: For patients on eltrombopag therapy, use of Dimension Gove TBIL is not recommended. Performed By: #### L 501.9520, L300.3900, L500.2500, L501.5200, L300.4310, L100.0100, L500.3400, L501.4020 #### [facility] [address] [place], [address] Bilirubin.direct [Mass/Vol] 0.22 mg/dL Normal 0.00-0.30 [facility] Comment on above: Order Comment: 'TROP ' Serial specimen #1, #2 or #3: 1 Performed By: #### L 501.9520, L300.3900, L500.2500, L501.5200, L300.4310, L100.0100, L500.3400, L501.4020 #### [facility] [address] [place], [address] Globulin (S) [Mass/Vol] 3.5 g/dL Normal 2.2-4.2 [facility] Comment on above: Order Comment: 'TROP ' Serial specimen #1, #2 or #3: 1 Performed By: #### L 501.9520, L300.3900, L500.2500, L501.5200, L300.4310, L100.0100, L500.3400, L501.4020 #### [facility] [address] [place], [address] T PROT 7.8 g/dL Normal 6.4-8.2 [facility] Comment on above: Order Comment: 'TROP ' Serial specimen #1, #2 or #3: 1 Performed By: #### L 501.9520, L300.3900, L500.2500, L501.5200, L300.4310, L100.0100, L500.3400, L501.4020 #### [facility] [address] [place], [address] Magnesiumon 01-01-2024 Magnesium [Mass/Vol] 2.2 mg/dL Normal 1.6-2.6 [facility] Comment on above: Order Comment: Comme nts: Add onto previous labs if possible Performed By: #### L 501.5200 ####[facility] [address] [place], [address] Magnesium [Mass/Vol] 2.2 mg/dL Normal 1.6-2.6 [facility] Comment on above: Order Comment: 'TROP ' Serial specimen #1, #2 or #3: 1 Performed By: #### L 501.9520, L300.3900, L500.2500, L501.5200, L300.4310, L100.0100, L500.3400, L501.4020 ####[facility] [address] [place], [address] Partial Thromboplast Timeon 01-01-2024 aPTT Coag (Bld) [Time] s Invalid Interpretation Code 24.1-36.2 [facility] Comment on above: Order Comment: Comme nts: heparin gtt Result Comment: CRIT ICAL VALUE CALLED TO HOME CARE SCHEDULER 01/01/242023 Desirae Daily. RESULTS READ BACK BY SAME. Performed By: #### L 300.4310 ####[facility] [address] [place], [address] aPTT Coag (Bld) [Time] 34.9 s Normal 24.1-36.2 [facility] Comment on above: Performed By: #### L 501.9520, L300.3900, L500.2500, L501.5200, L300.4310, L100.0100, L500.3400, L501.4020 #### [facility] [address] [place], [address] Prothrombin Time w/INRon INR Normal [facility] Comment on above: Result Comment: @OK TO CANCEL PER ER NURSE - DUPLICATE Performed By: #### L 300.3900 ####[facility] [address] [place], [address] PROTIME Normal 11.7-14.9 [facility] Comment on above: Result Comment: @OK TO CANCEL PER ER NURSE - DUPLICATE Performed By: #### L 300.3900 ####[facility] [address] [place], [address] INR Coag (PPP) [Relative time] 1.0 {INR} Normal [facility] Comment on above: Performed By: #### L 501.9520, L300.3900, L500.2500, L501.5200, L300.4310, L100.0100, L500.3400, L501.4020 #### [facility] [address] [place], [address] PT Coag (PPP) [Time] 13.5 s Normal 11.7-14.9 [facility] Comment on above: Performed By: #### L 501.9520, L300.3900, L500.2500, L501.5200, L300.4310, L100.0100, L500.3400, L501.4020 #### [facility] [address] [place], [place], [id number] Thyroid Stim Hormone (TSH)on 01-01-2024 TSH 2.430 uIU/mL Normal 0.358-3.740 [facility] Comment on above: Order Comment: 'TROP ' Serial specimen #1, #2 or #3: 1 Performed By: #### L 501.9520, L300.3900, L500.2500, L501.5200, L300.4310, L100.0100, L500.3400, L501.4020 ####[facility] [address] [place], [place], [id number] US SCROTUM CONTENTSon 2023 US SCROTUM CONTENTS ORIGINAL EXAMINATION: ULTRASOUND OF THE SCROTUM/TESTICLES WITH COLOR DOPPLER FLOW EVALUATION10/09/2023 11:21 am Scrotal Ultrasound with Duplex Doppler evaluation TECHNIQUE: Duplex ultrasound using B-mode/shoemaker scaled imaging, Doppler spectral analysis and color flow Doppler was obtained of the testicles. Grayscale, color Doppler and spectral waveform evaluation This report is based on interpretation of permanently recorded ultrasound images. COMPARISON: None HISTORY: ORDERING SYSTEM PROVIDED HISTORY: Reason for Exam: lump, pain, FINDINGS: Right testicle: 4.7 x 2.3 x 2.9 cm Left testicle: 4.6 x 2.2 x 3.2 cm No suspicious focal nor diffuse abnormalities are seen. Color Doppler flow is seen in both testicles in a symmetric fashion. Spectral waveform analysis of the testicles shows arterial and venous waveforms in both testicles. There is a tiny 3 mm right epididymal cyst of no clinical significance. Otherwise normal epididymis bilaterally. There is no hydrocele on either side. No significant varicocele on either side also. IMPRESSION: Negative scrotal ultrasound. No mass or acute findings. Interpreted by: Darek Baldwin MD Preliminary Report By: Darek Baldwin MD Electronically signed By Darek Baldwin MD Dictated Date: 10/09/2023 12:33:09 PM Prelim Date: 10/09/2023 12:34:31 PM Sign Date: 10/09/2023 12:34:31 PM Ordering Provider: CHERYL Allen [facility] ([place]) Pulmonary Visit Reporton Pulmonary Visit Report [facility] [address] [place] [address] OFFICE VISIT Date of Service: 02/27/23 MR#: [id number] Acct: [id number] Name: ALMA CHANG Rep #: [id number] : 1980 Provider: YESICA Hoang Age/Sex: 42/M Location: [facility].PMW Status: Signed Assessment and Plan Assessment and Plan (1) Obstructive sleep apnea: Status: Chronic (2) Obesity: Status: Chronic Qualifiers: Obesity type: due to excess calories Obesity classification: adult class 1 (BMI 30 - 34.9) Serious obesity comorbidity presence: with serious comorbidity Body mass index: BMI 31.0-31.9 Qualified Code(s): E66.09 - Other obesity due to excess calories; Z68.31 - Body mass index [BMI] 31.0-31.9, adult Plan He is using and benefiting from Pap therapy. No indication for titration study at this time. Continue to encourage weight loss. Contact the office for any new or worsening symptoms in the meantime. Follow-up in 1 year. Plan Details Follow Up: 1 Year ([facility]) HPI 1 Y FU Chief Complaint: Routine follow-up HPI Comments Details: This patient presents to the office today for follow-up of his obstructive sleep apnea. He is ambulatory and currently on room air. He has not recently been seen in the ED or urgent care for any respiratory illness. He has not required any antibiotics or prednisone for any breathing problems. He denies any difficulty with shortness of breath. He denies any cough, sputum production or hemoptysis. He denies any wheezing, chest tightness, chest pain or palpitations. He also denies any fever, chills or body aches. He reports good compliance with his PAP device. He is able to notice waking up feeling rested more refreshed when using his PAP device. He admits that occasionally he forgets to "take it with me on trips". He is not having excessive nocturia. He denies any difficulty with dry mouth or mask leaks. Compliance report for the past 30 days shows 83% compliance with an average use of 5 hours and 39 minutes per night. Current setting is AutoPap 5 to 15 cm of water with pressures typically being utilized at 7.1 to 12.3 cm of water. Residual AHI of 2.3 events per hour and leaks do not appear to be a consistent issue. Intake Vital Signs 02/27/22 11:14 11/26/22 10:52 02/27/23 07:59 Height 5 ft 11 in 5 ft 11 in 5 ft 11 in Weight: 238 lb 8 oz 229 lb 1 oz BMI 33.3 31.9 BP 151/80 H 121/66 H Blood Pressure Location Lt brachial Lt brachial Position Sitting Sitting Respiration 18 18 Pulse 64 69 Pulse Source Monitor Monitor Temp 98.2 F 97.1 F L Temperature Source Temporal Artery Temporal Artery Pulse Oximetry (%) 97 96 Oxygen Delivery Method room air room air Intake Visit Reasons: 1 Y FU Chief Complaint: Fever, chest congestion, body aches Welt Cutter Required: No DME Vendor: Ernesto Accompanied by: Self Is patient in pain?: No Allergies Penicillins Allergy (Verified 02/27/23 10:56) PT UNSURE OF REACTION sulfamethoxazole [From Bactrim] Allergy (Verified 02/27/23 10:56) Hives trimethoprim [From Bactrim] Allergy (Verified 02/27/23 10:56) Hives Medications multivitamin 1 tab PO DAILY 02/27/22 [History Confirmed 11/26/22] [facility] Medical History (Reviewed 02/27/23 @ 11:03 by Peggy Hoang INSTRUCTIONAL TECHNOLOGY SPECIALIST, INSTRUCTIONAL TECHNOLOGY SPECIALIST-C) Contact with or exposure to other viral diseases Obstructive sleep apnea Paroxysmal atrial fibrillation Stomach ulcer URI (upper respiratory infection) Surgical History H/O adenoidectomy H/O left wrist surgery History of surgery on upper extremity Family History Mother Thyroid disorder Brother Sleep apnea Grandfather Atrial fibrillation Onset in mid 70s. Social History (Reviewed 02/27/23 @ 11:03 by Peggy Hoang INSTRUCTIONAL TECHNOLOGY SPECIALIST, INSTRUCTIONAL TECHNOLOGY SPECIALIST-C) Smoking Status: Never smoker alcohol intake: current details: Rarely Review of Systems Resp Respiratory: Yes as per HPI Exam Const Constitutional: Positive conversant, cooperative, in no acute respiratory distress, well developed, well nourished, good hygiene and obese Head Head: Yes normocephalic, Yes atraumatic and No cyanosis of lips/distal nose Eyes Eye: Positive clear conjunctiva; Negative nystagmus or scleral abnormality Ears Ear: Positive hearing normal and external ears normal Nose Nose: Yes external nose normal Mouth Mouth: Positive oral mucosae normal Neck Neck: Positive normal visual inspection and trachea midline Chest Wall Chest: Positive symmetric chest movement Resp lung sounds: Positive clear to auscultation, good air exchange, normal expiratory time and normal respiratory effort; Negative wheezes, rhonchi or rales Cardio Cardiac: Positive reg (more content not included)... Normal [facility] .Auto Diffon 10-15-2022 Basophil, Absolute 0.0 10 3/mcL Normal 0.0-0.2 [facility] ([place]) Comment on above: Performed By: #### C BC, ADIFF, GFR, ANEU, CMP, LIPID #### [address] [address] Basophils/100 WBC (Bld) 0.2 % Normal 0.0-2.5 [facility] ([place]) Comment on above: Performed By: #### C BC, ADIFF, GFR, ANEU, CMP, LIPID #### [address] [address] Eosinophil, Absolute 0.2 10 3/mcL Normal 0.0-0.4 [facility] ([place]) Comment on above: Performed By: #### C BC, ADIFF, GFR, ANEU, CMP, LIPID #### [address] [address] Eosinophils/100 WBC (Bld) 3.5 % Normal 0.0-7.0 [facility] ([place]) Comment on above: Performed By: #### C BC, ADIFF, GFR, ANEU, CMP, LIPID #### [address] [address] Lymphocyte, Absolute 2.2 10 3/mcL Normal 0.8-3.9 [facility] ([place]) Comment on above: Performed By: #### C BC, ADIFF, GFR, ANEU, CMP, LIPID #### [address] [address] Lymphocytes/100 WBC (Bld) 36.6 % Normal 10.0-50.0 [facility] ([place]) Comment on above: Performed By: #### C BC, ADIFF, GFR, ANEU, CMP, LIPID #### [address] [address] Monocyte, Absolute 0.6 10 3/mcL Normal 0.2-1.0 [facility] ([place]) Comment on above: Performed By: #### C BC, ADIFF, GFR, ANEU, CMP, LIPID #### [address] [address] Monocytes/100 WBC (Bld) 9.6 % Normal 1.7-13.0 [facility] ([place]) Comment on above: Performed By: #### C BC, ADIFF, GFR, ANEU, CMP, LIPID #### [address] [address] Neutrophils/100 WBC (Bld) 50.1 % Normal 37.0-80.0 [facility] ([place]) Comment on above: Performed By: #### C BC, ADIFF, GFR, ANEU, CMP, LIPID #### [address] [address] .GFRon 10-15-2022 GFR 104 ml/min/1.73sqm Normal [facility] ([place]) Comment on above: Result Comment: GFR Population mean for , Non- Americans Ages 20-29 = 116 mL/min/1.73 sq.m. Ages 30-39 = 107 mL/min/1.73 sq.m. Ages 40-49 = 99 mL/min/1.73 sq.m. Ages 50-59 = 93 mL/min/1.73 sq.m. Ages 60-69 = 85 mL/min/1.73 sq.m. Ages 70+ = 75 mL/min/1.73 sq.m. Chronic Kidney Disease: Less than 60 mL/min/1.73 square meters End Stage Renal Disease: Less than 15 mL/min/1.73 square meters Performed By: #### C BC, ADIFF, GFR, ANEU, CMP, LIPID #### [address] [address] GFR Non- 86 ml/min/1.73sqm Normal [facility] ([place]) Comment on above: Result Comment: GFR Population mean for , Non- Americans Ages 20-29 = 116 mL/min/1.73 sq.m. Ages 30-39 = 107 mL/min/1.73 sq.m. Ages 40-49 = 99 mL/min/1.73 sq.m. Ages 50-59 = 93 mL/min/1.73 sq.m. Ages 60-69 = 85 mL/min/1.73 sq.m. Ages 70+ = 75 mL/min/1.73 sq.m. Chronic Kidney Disease: Less than 60 mL/min/1.73 square meters End Stage Renal Disease: Less than 15 mL/min/1.73 square meters Performed By: #### C BC, ADIFF, GFR, ANEU, CMP, LIPID #### [address] [address] .NEUABSon 10-15-2022 Neutrophil, Absolute 3.0 10 3/mcL Normal 2.9-6.2 [facility] ([place]) Comment on above: Performed By: #### C BC, ADIFF, GFR, ANEU, CMP, LIPID #### [address] [address] CBCon 10-15-2022 Erythrocyte distribution width (RBC) [Ratio] 14.2 % Normal 11.5-14.5 [facility] ([place]) Comment on above: Performed By: #### C BC, ADIFF, GFR, ANEU, CMP, LIPID #### [address] [address] Hematocrit (Bld) [Volume fraction] 40.8 % Low 42.0-52.0 [facility] ([place]) Comment on above: Performed By: #### C BC, ADIFF, GFR, ANEU, CMP, LIPID #### [place] [address] Hgb 14.1 G/dL Normal 14.0-18.0 [facility] ([place]) Comment on above: Performed By: #### C BC, ADIFF, GFR, ANEU, CMP, LIPID #### [place] [address] MCH (RBC) [Entitic mass] 30.4 pg Normal 27.0-31.2 [facility] ([place]) Comment on above: Performed By: #### C BC, ADIFF, GFR, ANEU, CMP, LIPID #### [place] [address] MCHC 34.6 G/dL Normal 31.8-35.4 [facility] ([place]) Comment on above: Performed By: #### C BC, ADIFF, GFR, ANEU, CMP, LIPID #### [place] [address] MCV (RBC) [Entitic vol] 87.9 fL Normal 80.0-94.0 [facility] ([place]) Comment on above: Performed By: #### C BC, ADIFF, GFR, ANEU, CMP, LIPID #### [place] [address] Platelet 326 10 3/mcL Normal 130-400 [facility] ([place]) Comment on above: Performed By: #### C BC, ADIFF, GFR, ANEU, CMP, LIPID #### [place] [address] Platelet mean volume (Bld) [Entitic vol] 7.3 fL Low 7.4-10.4 [facility] ([place]) Comment on above: Performed By: #### C BC, ADIFF, GFR, ANEU, CMP, LIPID #### [place] [address] RBC 4.64 10 6/mcL Normal 4.04-6.13 [facility] ([place]) Comment on above: Performed By: #### C BC, ADIFF, GFR, ANEU, CMP, LIPID #### [address] [address] WBC 6.0 10 3/mcL Normal 4.6-10.8 [facility] ([place]) Comment on above: Performed By: #### C BC, ADIFF, GFR, ANEU, CMP, LIPID #### [address] [address] CMPon 10-15-2022 Albumin Level 4.0 G/dL Normal 3.5-5.0 [facility] ([place]) Comment on above: Performed By: #### C BC, ADIFF, GFR, ANEU, CMP, LIPID #### [address] [address] Albumin/Globulin [Mass ratio] 1.2 {ratio} Normal 1.1-2.5 [facility] ([place]) Comment on above: Performed By: #### C BC, ADIFF, GFR, ANEU, CMP, LIPID #### [place] [id number] ALP [Catalytic activity/Vol] 83 U/L Normal 40-135 [facility] ([place]) Comment on above: Performed By: #### C BC, ADIFF, GFR, ANEU, CMP, LIPID #### [place] [id number] ALT [Catalytic activity/Vol] 35 U/L Normal 16-63 [facility] ([place]) Comment on above: Performed By: #### C BC, ADIFF, GFR, ANEU, CMP, LIPID #### [place] [id number] AST [Catalytic activity/Vol] 22 U/L Normal 10-40 [facility] ([place]) Comment on above: Performed By: #### C BC, ADIFF, GFR, ANEU, CMP, LIPID #### [place] [id number] Bili Total 0.6 mg/dL Normal 0.2-1.0 [facility] ([place]) Comment on above: Result Comment: Use of this assay is not recommended for patients undergoing treatment with eltrombopag due to the potential for falsely elevated results. Performed By: #### C BC, ADIFF, GFR, ANEU, CMP, LIPID #### [address] [address] BUN/Creatinine Ratio 15 ratio Normal 7-27 [facility] ([place]) Comment on above: Performed By: #### C BC, ADIFF, GFR, ANEU, CMP, LIPID #### [address] [address] Calcium [Mass/Vol] 8.9 mg/dL Normal 8.4-10.2 [facility] ([place] Comment on above: Performed By: #### C BC, ADIFF, GFR, ANEU, CMP, LIPID #### [address] [address] Chloride [Moles/Vol] 107 mmol/L Normal 98-107 [facility] ([place]) Comment on above: Performed By: #### C BC, ADIFF, GFR, ANEU, CMP, LIPID #### [place] [id number] CO2 [Moles/Vol] 28 mmol/L Normal 22-29 [facility] ([place]) Comment on above: Performed By: #### C BC, ADIFF, GFR, ANEU, CMP, LIPID #### [place] [id number] Creatinine [Mass/Vol] 0.97 mg/dL Normal 0.70-1.30 [facility] ([place]) Comment on above: Performed By: #### C BC, ADIFF, GFR, ANEU, CMP, LIPID #### [address] [address] Electrolyte Balance 10.0 mEq/L Normal 4.0-15.0 [facility] ([place]) Comment on above: Performed By: #### C BC, ADIFF, GFR, ANEU, CMP, LIPID #### [address] [address] Globulin 3.2 G/dL Normal [facility] ([place]) Comment on above: Performed By: #### C BC, ADIFF, GFR, ANEU, CMP, LIPID #### [place] [id number] Glucose [Mass/Vol] 97 mg/dL Normal 70-105 [facility] Comment on above: Performed By: #### C BC, ADIFF, GFR, ANEU, CMP, LIPID #### [address] [address] Potassium [Moles/Vol] 4.7 mmol/L Normal 3.5-5.1 [facility] ([place]) Comment on above: Performed By: #### C BC, ADIFF, GFR, ANEU, CMP, LIPID #### [address] [address] Sodium [Moles/Vol] 145 mmol/L Normal 136-145 [facility] Comment on above: Performed By: #### C BC, ADIFF, GFR, ANEU, CMP, LIPID #### [address] [address] Total Protein 7.2 G/dL Normal 6.4-8.2 [facility] ([place]) Comment on above: Performed By: #### C BC, ADIFF, GFR, ANEU, CMP, LIPID #### [address] [address] Urea nitrogen [Mass/Vol] 15 mg/dL Normal 7-18 [facility] ([place]) Comment on above: Performed By: #### C BC, ADIFF, GFR, ANEU, CMP, LIPID #### [address] [address] LABORATORYOrdered By: SYSTEM SYSTEM on 10-15-2022 Albumin BCP dye [Mass/Vol] 4.0 G/dL Invalid Interpretation Code 3.5 - 5.0 G/dL AO ADM SS Albumin/Globulin [Mass ratio] 1.2 {ratio} Invalid Interpretation Code 1.1 - 2.5 ratio AO ADM SS ALP [Catalytic activity/Vol] 83 U/L Invalid Interpretation Code 40 - 135 U/L AO ADM SS ALT With P-5'-P [Catalytic activity/Vol] 35 U/L Invalid Interpretation Code 16 - 63 U/L AO ADM SS AST With P-5'-P [Catalytic activity/Vol] 22 U/L Invalid Interpretation Code 10 - 40 U/L AO ADM SS Basophil, Absolute 0.0 103/mcL Invalid Interpretation Code 0.0 - 0.2 10^3/mcL AO Workflow SS Basophils/100 WBC (Bld) 0.2 % Invalid Interpretation Code 0.0 - 2.5 % AO Workflow SS Bilirubin [Mass/Vol] 0.6 mg/dL Invalid Interpretation Code 0.2 - 1.0 mg/dL AO ADM SS Comment on above: Interpretive Data: U se of this assay is not recommended for patients undergoing treatment with eltrombopag due to the potential for falsely elevated results. Calcium [Mass/Vol] 8.9 mg/dL Invalid Interpretation Code 8.4 - 10.2 mg/dL AO ADM SS Chloride [Moles/Vol] 107 mmol/L Invalid Interpretation Code 98 - 107 mmol/L AO ADM SS CO2 [Moles/Vol] 28 mmol/L Invalid Interpretation Code 22 - 29 mmol/L AO ADM SS Creatinine [Mass/Vol] 0.97 mg/dL Invalid Interpretation Code 0.70 - 1.30 mg/dL AO ADM SS Electrolyte Balance 10.0 mEq/L Invalid Interpretation Code 4.0 - 15.0 mEq/L AO ADM SS Eosinophil, Absolute 0.2 103/mcL Invalid Interpretation Code 0.0 - 0.4 10^3/mcL AO Workflow SS Eosinophils/100 WBC (Bld) 3.5 % Invalid Interpretation Code 0.0 - 7.0 % AO Workflow SS Erythrocyte distribution width (RBC) [Ratio] 14.2 % Invalid Interpretation Code 11.5 - 14.5 % AO Workflow SS GFR/1.73 sq M.predicted among blacks MDRD (S/P/Bld) [Vol rate/Area] 104 ml/min/1.73sqm Invalid Interpretation Code AO Chemistry S Comment on above: Interpretive Data: GFR Population mean for , Non- Americans Ages 20-29 = 116 mL/min/1.73 sq.m. Ages 30-39 = 107 mL/min/1.73 sq.m. Ages 40-49 = 99 mL/min/1.73 sq.m. Ages 50-59 = 93 mL/min/1.73 sq.m. Ages 60-69 = 85 mL/min/1.73 sq.m. Ages 70+ = 75 mL/min/1.73 sq.m. Chronic Kidney Disease: Less than 60 mL/min/1.73 square meters End Stage Renal Disease: Less than 15 mL/min/1.73 square meters GFR/1.73 sq M.predicted among non-blacks MDRD (S/P/Bld) [Vol rate/Area] 86 ml/min/1.73sqm Invalid Interpretation Code AO Chemistry S Comment on above: Interpretive Data: GFR Population mean for , Non- Americans Ages 20-29 = 116 mL/min/1.73 sq.m. Ages 30-39 = 107 mL/min/1.73 sq.m. Ages 40-49 = 99 mL/min/1.73 sq.m. Ages 50-59 = 93 mL/min/1.73 sq.m. Ages 60-69 = 85 mL/min/1.73 sq.m. Ages 70+ = 75 mL/min/1.73 sq.m. Chronic Kidney Disease: Less than 60 mL/min/1.73 square meters End Stage Renal Disease: Less than 15 mL/min/1.73 square meters Globulin 3.2 G/dL Invalid Interpretation Code AO ADM SS Glucose [Mass/Vol] 97 mg/dL Invalid Interpretation Code 70 - 105 mg/dL AO ADM SS Hematocrit (Bld) [Volume fraction] 40.8 % Invalid Interpretation Code 42.0 - 52.0 % AO Workflow SS Hemoglobin (Bld) [Mass/Vol] 14.1 G/dL Invalid Interpretation Code 14.0 - 18.0 G/dL AO Workflow SS Lymphocyte, Absolute 2.2 103/mcL Invalid Interpretation Code 0.8 - 3.9 10^3/mcL AO Workflow SS Lymphocytes/100 WBC (Bld) 36.6 % Invalid Interpretation Code 10.0 - 50.0 % AO Workflow SS MCH (RBC) [Entitic mass] 30.4 pg Invalid Interpretation Code 27.0 - 31.2 pg AO Workflow SS MCHC 34.6 G/dL Invalid Interpretation Code 31.8 - 35.4 G/dL AO Workflow SS MCV (RBC) [Entitic vol] 87.9 fL Invalid Interpretation Code 80.0 - 94.0 fL AO Workflow SS Monocyte, Absolute 0.6 103/mcL Invalid Interpretation Code 0.2 - 1.0 10^3/mcL AO Workflow SS Monocytes/100 WBC (Bld) 9.6 % Invalid Interpretation Code 1.7 - 13.0 % AO Workflow SS Neutrophil, Absolute 3.0 103/mcL Invalid Interpretation Code 2.9 - 6.2 10^3/mcL AO Workflow SS Neutrophils/100 WBC (Bld) 50.1 % Invalid Interpretation Code 37.0 - 80.0 % AO Workflow SS Platelet mean volume (Bld) [Entitic vol] 7.3 fL Invalid Interpretation Code 7.4 - 10.4 fL AO Workflow SS Platelets (Bld) [#/Vol] 326 103/mcL Invalid Interpretation Code 130 - 400 10^3/mcL AO Workflow SS Potassium [Moles/Vol] 4.7 mmol/L Invalid Interpretation Code 3.5 - 5.1 mmol/L AO ADM SS Protein [Mass/Vol] 7.2 G/dL Invalid Interpretation Code 6.4 - 8.2 G/dL AO ADM SS RBC (Bld) [#/Vol] 4.64 106/mcL Invalid Interpretation Code 4.04 - 6.13 10^6/mcL AO Workflow SS Sodium [Moles/Vol] 145 mmol/L Invalid Interpretation Code 136 - 145 mmol/L AO ADM SS Urea nitrogen [Mass/Vol] 15 mg/dL Invalid Interpretation Code 7 - 18 mg/dL AO ADM SS Urea nitrogen/Creatinine [Mass ratio] 15 ratio Invalid Interpretation Code 7 - 27 ratio AO ADM SS WBC (Bld) [#/Vol] 6.0 103/mcL Invalid Interpretation Code 4.6 - 10.8 10^3/mcL AO Workflow SS LABORATORYOrdered By: Jacqueline Del Castillo on 10-15-2022 Cholesterol [Mass/Vol] 199 mg/dL Invalid Interpretation Code 0 - 200 mg/dL AO ADM SS Comment on above: Interpretive Data: C holesterol Reference Interval: Less than 200 Desirable 200-239 Borderline high risk 240 and above High risk Cholesterol in HDL [Mass/Vol] 54 mg/dL Invalid Interpretation Code 40 - 60 mg/dL AO ADM SS Cholesterol in LDL [Mass/Vol] 73 mg/dL Invalid Interpretation Code 0 - 130 mg/dL AO ADM SS Triglyceride [Mass/Vol] 360 mg/dL Invalid Interpretation Code 0 - 150 mg/dL AO ADM SS Comment on above: Interpretive Data: T riglyceride Reference Interval: Less than 150 Normal 150-199 Borderline high risk 200-499 High risk 500 or higher Very high risk LIPIDon 10-15-2022 Cholesterol [Mass/Vol] 199 mg/dL Normal 0-200 [facility] ([place]) Comment on above: Result Comment: Chol esterol Reference Interval: Less than 200 Desirable 200-239 Borderline high risk 240 and above High risk Performed By: #### C BC, ADIFF, GFR, ANEU, CMP, LIPID #### [place] [id number] [place] [id number] Cholesterol in HDL [Mass/Vol] 54 mg/dL Normal 40-60 [facility] ([place]) Comment on above: Performed By: #### C BC, ADIFF, GFR, ANEU, CMP, LIPID #### [address] [address] Cholesterol in LDL [Mass/Vol] 73 mg/dL Normal 0-130 [facility] ([place]) Comment on above: Performed By: #### C BC, ADIFF, GFR, ANEU, CMP, LIPID #### [place] [id number] [place] [address] Triglyceride [Mass/Vol] 360 mg/dL High 0-150 [facility] ([place]) Comment on above: Result Comment: Trig lyceride Reference Interval: Less than 150 Normal 150-199 Borderline high risk 200-499 High risk 500 or higher Very high risk Performed By: #### C BC, ADIFF, GFR, ANEU, CMP, LIPID #### [address] [address] LABORATORYOrdered By: Alma Washburn on 03-27-2022 Basophil, Absolute 0.0 103/mcL Invalid Interpretation Code 0.0 - 0.2 10^3/mcL AO Workflow SS Basophils/100 WBC (Bld) 0.3 % Invalid Interpretation Code 0.0 - 2.5 % AO Workflow SS Eosinophil, Absolute 0.1 103/mcL Invalid Interpretation Code 0.0 - 0.4 10^3/mcL AO Workflow SS Eosinophils/100 WBC (Bld) 1.3 % Invalid Interpretation Code 0.0 - 7.0 % AO Workflow SS Erythrocyte distribution width (RBC) [Ratio] 13.6 % Invalid Interpretation Code 11.5 - 14.5 % AO Workflow SS Hematocrit (Bld) [Volume fraction] 40.0 % Invalid Interpretation Code 42.0 - 52.0 % AO Workflow SS Hemoglobin (Bld) [Mass/Vol] 13.7 G/dL Invalid Interpretation Code 14.0 - 18.0 G/dL AO Workflow SS Lymphocyte, Absolute 1.9 103/mcL Invalid Interpretation Code 0.8 - 3.9 10^3/mcL AO Workflow SS Lymphocytes/100 WBC (Bld) 26.7 % Invalid Interpretation Code 10.0 - 50.0 % AO Workflow SS MCH (RBC) [Entitic mass] 29.9 pg Invalid Interpretation Code 27.0 - 31.2 pg AO Workflow SS MCHC 34.3 G/dL Invalid Interpretation Code 31.8 - 35.4 G/dL AO Workflow SS MCV (RBC) [Entitic vol] 87.2 fL Invalid Interpretation Code 80.0 - 94.0 fL AO Workflow SS Monocyte, Absolute 0.6 103/mcL Invalid Interpretation Code 0.2 - 1.0 10^3/mcL AO Workflow SS Monocytes/100 WBC (Bld) 7.7 % Invalid Interpretation Code 1.7 - 13.0 % AO Workflow SS Neutrophil, Absolute 4.6 103/mcL Invalid Interpretation Code 2.9 - 6.2 10^3/mcL AO Workflow SS Neutrophils/100 WBC (Bld) 64.0 % Invalid Interpretation Code 37.0 - 80.0 % AO Workflow SS Platelet mean volume (Bld) [Entitic vol] 7.4 fL Invalid Interpretation Code 7.4 - 10.4 fL AO Workflow SS Platelets (Bld) [#/Vol] 344 103/mcL Invalid Interpretation Code 130 - 400 10^3/mcL AO Workflow SS RBC (Bld) [#/Vol] 4.59 106/mcL Invalid Interpretation Code 4.04 - 6.13 10^6/mcL AO Workflow SS WBC (Bld) [#/Vol] 7.1 103/mcL Invalid Interpretation Code 4.6 - 10.8 10^3/mcL AO Workflow SS LABORATORYOrdered By: Catie White on 10-30-2021 Albumin BCP dye [Mass/Vol] 4.1 G/dL Invalid Interpretation Code 3.5 - 5.0 G/dL AO ADM SS Albumin/Globulin [Mass ratio] 1.5 {ratio} Invalid Interpretation Code 1.1 - 2.5 ratio AO ADM SS ALP [Catalytic activity/Vol] 79 U/L Invalid Interpretation Code 40 - 135 U/L AO ADM SS ALT With P-5'-P [Catalytic activity/Vol] 43 U/L Invalid Interpretation Code 16 - 63 U/L AO ADM SS AST With P-5'-P [Catalytic activity/Vol] 26 U/L Invalid Interpretation Code 10 - 40 U/L AO ADM SS Bilirubin [Mass/Vol] 0.6 mg/dL Invalid Interpretation Code 0.2 - 1.0 mg/dL AO ADM SS Calcium [Mass/Vol] 8.6 mg/dL Invalid Interpretation Code 8.4 - 10.2 mg/dL AO ADM SS Chloride [Moles/Vol] 104 mmol/L Invalid Interpretation Code 98 - 107 mmol/L AO ADM SS Cholesterol [Mass/Vol] 182 mg/dL Invalid Interpretation Code 0 - 200 mg/dL AO ADM SS Cholesterol in HDL [Mass/Vol] 53 mg/dL Invalid Interpretation Code 40 - 60 mg/dL AO ADM SS Cholesterol in LDL [Mass/Vol] 109 mg/dL Invalid Interpretation Code 0 - 130 mg/dL AO ADM SS CO2 [Moles/Vol] 28 mmol/L Invalid Interpretation Code 22 - 29 mmol/L AO ADM SS Creatinine [Mass/Vol] 1.05 mg/dL Invalid Interpretation Code 0.70 - 1.30 mg/dL AO ADM SS Electrolyte Balance 8.0 mEq/L Invalid Interpretation Code 4.0 - 15.0 mEq/L AO ADM SS Globulin 2.8 G/dL Invalid Interpretation Code AO ADM SS Glucose [Mass/Vol] 79 mg/dL Invalid Interpretation Code 70 - 105 mg/dL AO ADM SS Potassium [Moles/Vol] 4.2 mmol/L Invalid Interpretation Code 3.5 - 5.1 mmol/L AO ADM SS Protein [Mass/Vol] 6.9 G/dL Invalid Interpretation Code 6.4 - 8.2 G/dL AO ADM SS Sodium [Moles/Vol] 140 mmol/L Invalid Interpretation Code 136 - 145 mmol/L AO ADM SS Triglyceride [Mass/Vol] 100 mg/dL Invalid Interpretation Code 0 - 150 mg/dL AO ADM SS TSH Qn 1.70 m[IU]/L Invalid Interpretation Code 0.36 - 3.74 mcIU/mL AO ADM SS Urea nitrogen [Mass/Vol] 14 mg/dL Invalid Interpretation Code 7 - 18 mg/dL AO ADM SS Urea nitrogen/Creatinine [Mass ratio] 13 ratio Invalid Interpretation Code 7 - 27 ratio AO ADM SS LABORATORYOrdered By: Cookie Pacheco on 10-30-2021 Basophil, Absolute 0.0 103/mcL Invalid Interpretation Code 0.0 - 0.2 10^3/mcL AO Workflow SS Basophils/100 WBC (Bld) 0.3 % Invalid Interpretation Code 0.0 - 2.5 % AO Workflow SS Eosinophil, Absolute 0.0 103/mcL Invalid Interpretation Code 0.0 - 0.4 10^3/mcL AO Workflow SS Eosinophils/100 WBC (Bld) 0.7 % Invalid Interpretation Code 0.0 - 7.0 % AO Workflow SS Erythrocyte distribution width (RBC) [Ratio] 13.9 % Invalid Interpretation Code 11.5 - 14.5 % AO Workflow SS Hematocrit (Bld) [Volume fraction] 39.8 % Invalid Interpretation Code 42.0 - 52.0 % AO Workflow SS Hemoglobin (Bld) [Mass/Vol] 13.8 G/dL Invalid Interpretation Code 14.0 - 18.0 G/dL AO Workflow SS Lymphocyte, Absolute 2.1 103/mcL Invalid Interpretation Code 0.8 - 3.9 10^3/mcL AO Workflow SS Lymphocytes/100 WBC (Bld) 34.2 % Invalid Interpretation Code 10.0 - 50.0 % AO Workflow SS MCH (RBC) [Entitic mass] 29.9 pg Invalid Interpretation Code 27.0 - 31.2 pg AO Workflow SS MCHC 34.7 G/dL Invalid Interpretation Code 31.8 - 35.4 G/dL AO Workflow SS MCV (RBC) [Entitic vol] 86.1 fL Invalid Interpretation Code 80.0 - 94.0 fL AO Workflow SS Monocyte, Absolute 0.4 103/mcL Invalid Interpretation Code 0.2 - 1.0 10^3/mcL AO Workflow SS Monocytes/100 WBC (Bld) 6.7 % Invalid Interpretation Code 1.7 - 13.0 % AO Workflow SS Neutrophil, Absolute 3.6 103/mcL Invalid Interpretation Code 2.9 - 6.2 10^3/mcL AO Workflow SS Neutrophils/100 WBC (Bld) 58.1 % Invalid Interpretation Code 37.0 - 80.0 % AO Workflow SS Platelet mean volume (Bld) [Entitic vol] 7.2 fL Invalid Interpretation Code 7.4 - 10.4 fL AO Workflow SS Platelets (Bld) [#/Vol] 352 103/mcL Invalid Interpretation Code 130 - 400 10^3/mcL AO Workflow SS RBC (Bld) [#/Vol] 4.63 106/mcL Invalid Interpretation Code 4.04 - 6.13 10^6/mcL AO Workflow SS WBC (Bld) [#/Vol] 6.1 103/mcL Invalid Interpretation Code 4.6 - 10.8 10^3/mcL AO Workflow SS LABORATORYOrdered By: SYSTEM SYSTEM on 10-30-2021 GFR 95 ml/min/1.73sqm Invalid Interpretation Code AO Chemistry S GFR Non- 79 ml/min/1.73sqm Invalid Interpretation Code AO Chemistry S LABORATORYOrdered By: Catie White on 02-01-2021 ADMITTED TO INTENSIVE CARE UNIT FOR CONDITION OF INTEREST:FIND:PT:^PAT IENT:ORD: No (02/01/21 6:38 PM) Invalid Interpretation Code AO Auto Urine SS EMPLOYED IN A HEALTHCARE SETTING:FIND:PT:^ELBA ENT:ORD: No (02/01/21 6:38 PM) Invalid Interpretation Code AO Auto Urine SS FIRST TEST FOR CONDITION OF INTEREST:FIND:PT:^PAT IENT:ORD: Unknown (02/01/21 6:38 PM) Invalid Interpretation Code AO Auto Urine SS HAS SYMPTOMS RELATED TO CONDITION OF INTEREST:FIND:PT:^PAT IENT:ORD: Yes (02/01/21 6:38 PM) Invalid Interpretation Code AO Auto Urine SS Illness or injury onset date and time [id number] Invalid Interpretation Code AO Auto Urine SS Patient was hospitalized because of this condition No (02/01/21 6:38 PM) Invalid Interpretation Code AO Auto Urine SS status Not (02/01/21 6:38 PM) Invalid Interpretation Code AO Auto Urine SS RESIDES IN A CONGREGATE CARE SETTING:FIND:PT:^ELBA ENT:ORD: No (02/01/21 6:38 PM) Invalid Interpretation Code AO Auto Urine SS SARS-CoV-2 (COVID-19) RNA RAGHAV+probe Ql (Resp) Negative (02/01/21 6:38 PM) Invalid Interpretation Code Negative AO Auto Urine SS SARS-CoV-2 (COVID-19) RNA RAGHAV+probe Ql (Unsp spec) Negative results do not preclude SARS-CoV-2 infection and should not be used as the sole basis for patient management decisions. Negative results must be combined with clinical observations, patient history, and epidemiological information.There is a risk of false negative values resulting from improperly collected, transported, or handled specimens.There is a risk of false negative values due to the presence of sequence variants in the pathogen targets of the assay, procedural errors, amplification inhibitors in specimens, or inadequate numbers of organisms for amplification.PHILLIP SARS-CoV-2 Assay is a Real-Time reverse-transcriptase polymerase chain reaction (RT-PCR) based qualitative in vitro diagnostic test intended for the qualitative detection of nucleic acid from the SARS-CoV-2 in nasopharyngeal swab specimens collected from individuals suspected of COVID-19 by their healthcare provider. Testing is limited to laboratories certified under the Clinical Laboratory Improvement Amendments of 1988 (CLIA), 42 U.S.C. 263a, to perform moderate and high complexity tests. Invalid Interpretation Code AO Auto Urine SS Vital Signs Date Time Vital Sign Value Performing Clinician Faci lity 04-07-2024 14:19-0500 Body height 180.3 cm Sherri Brown MD Work Phone: [facility] 04-07-2024 14:19-0500 Body mass index (BMI) [Ratio] 31.94 kg/m2 Sherri Brown MD Work Phone: [facility] 04-07-2024 14:19-0500 Body weight 103.87 kg Sherri Brown MD Work Phone: [facility] 04-07-2024 14:19-0500 Diastolic blood pressure 70 mm[Hg] Sherri Brown MD Work Phone: [facility] 04-07-2024 14:19-0500 Heart rate 70 /min Sherri Brown MD Work Phone: [facility] 04-07-2024 14:19-0500 Respiratory rate 18 /min Sherri Brown MD Work Phone: [facility] 04-07-2024 14:19-0500 SaO2% (BldA) [Mass fraction] 97 % Sherri Borwn MD Work Phone: [facility] 04-07-2024 14:19-0500 Systolic blood pressure 118 mm[Hg] Sherri Brown MD Work Phone: [facility] 10-27-2021 09:54-0400 Body height 170.18 cm [facility] Work Phone: 10-27-2021 09:54-0400 Body mass index (BMI) [Ratio] 36 kg/m2 [facility] Work Phone: 10-27-2021 09:54-0400 Body temperature 98 [degF] [facility] Work Phone: 10-27-2021 09:54-0400 Body weight 104.32 kg [facility] Work Phone: 10-27-2021 09:54-0400 Diastolic blood pressure 83 mm[Hg] [facility] Work Phone: 10-27-2021 09:54-0400 Heart rate 57 /min [facility] Work Phone: 10-27-2021 09:54-0400 Respiratory rate 16 /min [facility] Work Phone: 10-27-2021 09:54-0400 SaO2% (BldA) [Mass fraction] 99 % [facility] Work Phone: 10-27-2021 09:54-0400 Systolic blood pressure 145 mm[Hg] [facility] Work Phone: Encounters Encounter Date Encounter Type Care Provider Facility Start: 12-13-2024 ambulatory SHERRI BROWN Fac ility:[facility] Start: 08-30-2024 End: 08-31-2024 ambulatory SHERRI BROWN Facility:[facility] Start: 08-02-2024 End: 08-02-2024 Telephone encounter Sherri Brown MD Work Phone: [facility] Comment on above: Preparations For Pro cedures Start: 04-07-2024 End: 04-07-2024 Office outpatient new 45 minutes Sherri Brown MD Work Phone: [facility] Comment on above: Persistent atrial fi brillation (HCC) (Primary Dx); At risk for stroke; Anticoagulant long-term use; Obstructive sleep apnea Start: 04-07-2024 End: 04-07-2024 ambulatory SHERRI BROWN Facility:[facility] Start: 02-19-2024 End: 01-09-2025 ambulatory Jordy H Roof INSTRUCTIONAL TECHNOLOGY SPECIALIST Facility:[facility] Start: 01-01-2024 End: 01-02-2024 ambulatory Cheryl Sierra INSTRUCTIONAL TECHNOLOGY SPECIALIST Facility:[facility] Start: 10-09-2023 End: 10-09-2023 ambulatory CHERYL SIERRA HOUSING SPECIALIST-KITCHEN MECHANIC Facility:[facility] Start: 10-09-2023 End: 10-09-2023 Patient encounter procedure CHERYL SIERRA HOUSING SPECIALIST-KITCHEN MECHANIC [facility] Start: 02-27-2023 End: 02-27-2023 ambulatory Peggy Hoang INSTRUCTIONAL TECHNOLOGY SPECIALIST Facility:[facility] Start: 10-15-2022 End: 10-15-2022 ambulatory CHERYL SIERRA HOUSING SPECIALIST-KITCHEN MECHANIC Facility:[facility] Start: 10-15-2022 End: 10-15-2022 Patient encounter procedure CHERYL SIERRA HOUSING SPECIALIST-KITCHEN MECHANIC [facility] Start: 10-15-2022 End: 10-15-2022 Well adult monitoring check done CHERYL SIERRA HOUSING SPECIALIST-KITCHEN MECHANIC [facility] Start: 03-27-2022 End: 03-27-2022 Patient encounter procedure CHERYL SIERRA HOUSING SPECIALIST-KITCHEN MECHANIC [facility] Start: 10-30-2021 End: 10-30-2021 Patient encounter procedure CHERYL SIERRA HOUSING SPECIALIST-KITCHEN MECHANIC [facility] Start: 10-27-2021 End: 10-27-2021 Emergency department patient visit [facility] Start: 02-01-2021 End: 02-01-2021 Patient encounter procedure PILO GUZMAN DO [facility] Procedures Date Procedure Procedure Detail Performing Clinician Start: 08-30-2024 Antibody screen SHERRI BROWN Comment on above: Order Comment: Speci men Type: BLOOD SPECIMEN Ordering Facility: [facility] Address: [address] [place] [address] Performed By: #### T SCR #### [facility] CLIA [id number] [address] [place] [address] [facility] Start: 04-07-2024 Ecg routine ecg w/le ast 12 lds w/i&r Sherri Brown MD Work Phone: Start: 02-10-2021 Left biceps brachii muscle traumatic injury CHERYL ROTHMANJANIA HOUSING SPECIALIST-KITCHEN MECHANIC Comment on above: sx on L torn bicep Tonsillectomy and adenoidectomy CHERYL SIERRA HOUSING SPECIALIST-KITCHEN MECHANIC Comment on above: as a child Wrist repair CHERYL SIERRA APR N-KITCHEN MECHANIC Comment on above: L wrist shattered an d repaired Plan of Treatment Date Care Activity Detail Author Start: 10-11-2024 Influenza vaccination Influenz a Vaccine (Season Ended) [facility] Start: 08-30-2024 Subsequent hospital visit by physician 08/30/2024 [place] [address] Sherri Brown MD [address] [place] [address] Persistent atrial fibrillation (HCC) [I48.19] [facility] Comment on above: Persistent atrial fi brillation (HCC) [I48.19] Start: 10-12-2023 Covid-19 Vaccine ( season) Covid-19 Vaccine ( season) [facility] Start: 10-12-2023 Influenza vaccination Influenza Vacc ine (#1) [facility] Start: 10-27-2021 Plain x-ray of wrist Wrist min 3 Vie ws [facility] Work Phone: Start: 10-27-2021 XR Wrist GE 3 Views [facility] Work Phone: Start: 2017 Lipid panel Lipid Screening [facility] Start: 2001 Hepatitis B Vaccine (1 of 3 - 19+ 3-dose series) Hepatitis B Vaccine (1 of 3 - 19+ 3-dose series) [facility] Start: 2001 Urine microalbumin profile DTaP,Tdap,Td Vaccine (1 - Tdap) [facility] Start: 2000 Anxiety Screening Anxiety Screening [facility] Start: 2000 Depression Screening Depression Scre ening [facility] Start: 2000 Hepatitis C screening Hepatitis C Sc reening [facility] Start: 2000 HIV screening HIV Screening [facility] Ephys evl trnsptl tx atrial fib isolat pulm vein COMPRE EP EVAL ABLTJ ATR FIB PULM VEIN ISOLATION Persistent atrial fibrillation (HCC) [facility] Patient Education ED Wrist Sprain [facility] Work Phone: Patient referral [facility] Work Phone: Immunizations Immunization Date Immunization Notes Care Provider Fa cili 07-07-2020 SARS-CoV-2 (COVID-19 ) mRNA-1273 vaccine PILO GUZMAN DO [facility] Comment on above: Result Comment: 2020: TPVAL 06-09-2020 SARS-CoV-2 (COVID-19 ) mRNA-1273 vaccine PILO GUZMAN DO [facility] Comment on above: Result Comment: 2020: TPVAL Payers Date Payer Category Payer Self-pay [id number] 2022 Medicaid [facility] MEDIC AID [id number] 2022 Unknown [id number] 2021 [employer] BLUE CARD PPO OOS [id number] 2021 Unknown [id number] 1982 Unknown [id number] 1982 Unknown [id number] Unknown [employer] [id number] Unknown [facility] [id number] Unknown [facility] [id number] Unknown [id number] Unknown [id number] Unknown [id number] Unknown [id number] 462 Unknown [id number] 462 Unknown [id number] 462 Unknown [id number] 462 Unknown [id number] 462 Social History Date Type Detail Facility Start: 10-20-2019 End: 03-03-2024 Never smoked tobacco (finding) [facility] Start: 1980 Sex Assigned At Male [facility] Start: 10-27-[address] [facility] Unknown if ever smoked [facility] Work Phone: Start: 09-14-2019 None [facility] Work Phone: Start: 09-14-2019 Alone [facility] Work Phone: Start: 03-03-2024 Tobacco use and exposure Smokeless tobacco non-user [facility] Start: 04-07-2024 Alcoholic beverage intake Current drinker of alcohol (finding) [facility] Start: 04-07-2024 History of Social function [facility] Start: 04-07-2024 Tobacco use panel [facility] National Score (1-100), lower number is lower risk 51 [facility] Start: 03-03-2024 [facility] Start: 1980 Sex assigned at Not on file [facility] Goals Date Patient Goal Desired Activity /State Personal health goal Clinical Notes 10-09-2023 to 12-13-2024 Telephone Encounter - Aneta Szymanski - 08/02/2024 3:01 PM EDTTelephone Encounter - Aneta Szymanski - 08/02/2024 3:01 PM Sherri De Los Santos MD - 04/07/2024 2:20 PM ESTLaboratoryRadiologyLaboratory Note Date & Type Note Facility 12-13-2024 Note HNO ID: [id number] Author: ASHER GOMEZ RN Service: ? Author Type: Registered Nurse Type: Patient Education Filed: 12/13/2024 13:31 Note Text: Patient educated on 7 day patch monitor, and verbalizes understanding. [facility] 08-30-2024 Note HNO ID: [id number] Author: MORENO AMARO APRN.CRNA Service: ? Author Type: Nurse Claims Technician Type: Anesthesia Procedure Notes Filed: 08/30/2024 09:19 Note Text: ANESTHESIOLOGY PROCEDURE NOTE Airway General Information Procedure Start Time/Medication Administration: 08/30/2024 9:10 AM Procedure End Time: 08/30/2024 9:19 AM Patient location during procedure: OR Timeout Performed Pre-procedure: timeout performed Consent Obtained: Yes Patient identity confirmed: arm band Staffing Performed by: SHARITA Indications and Patient Condition Indications for airway management: anesthesia Preoxygenated: yes anesthesia circuit Patient position: sniffing Final Airway Details Final airway type: endotracheal airway Final Endotracheal Airway: ETT Cuffed: yes Successful intubation technique: video laryngoscopy Devices used: Sargent Endotracheal tube insertion site: oral Blade: Daniel Blade size: #3 ETT size (mm): 7.5 Measured from: lips Measurement (cm): 23 Placement verified by: capnometry Cormack-Lehane Classification: grade I - full view of glottis Number of attempts at approach: 1 SIGNATURE: Moreno Amaro APRN.TELEPHONE TECHNICIAN PATIENT NAME: Alma Chang DATE: August 30, 2024 TIME: 9:19 AM CSN: [id number] [facility] 08-02-2024 Telephone encounter Note Patient is scheduled for a PFA on 08/[address] Brown. The hospital will call the day before between 2-5pm with your arrival time. You should not eat or drink after midnight the day before the procedure. You will need a pile driver operator barge mounted when released from the hospital and you will stay overnight for observation. You should continue to take medications as prescribed the morning of the procedure with just a sip of water but start Xarelto 1 week prior to the procedure Patient has a prescription from [facility] [employer] morning of Spoke with Alma Chang on August 02, 2024. Informed of instructions as stated above. Patient verbalized understanding. Aneta Szymanski [facility] 08-02-2024 Miscellaneous Notes Patient is scheduled for a PFA on 08/[address] Brown. The hospital will call the day before between 2-5pm with your arrival time. You should not eat or drink after midnight the day before the procedure. You will need a pile driver operator barge mounted when released from the hospital and you will stay overnight for observation. You should continue to take medications as prescribed the morning of the procedure with just a sip of water but start Xarelto 1 week prior to the procedure Patient has a prescription from [facility] [employer] morning of Spoke with Alma Chang on August 02, 2024. Informed of instructions as stated above. Patient verbalized understanding. Aneta Szymanski documented in this encounter [facility] 04-07-2024 History of Presen t illness Narrative PRIMARY CARE PHYSICIAN: Cheryl Sierra NP [address] [place] [address] REFERRING PHYSICIAN: Jordy Pate [address] [address] Patient Care Team: Cheryl Sierra CNP as PCP - General (Family Medicine) Jordy Pate APRN.LAURY as Nurse Practitioner (Cardiology) CHIEF COMPLAINT: Evaluation of arrhythmia HISTORY OF PRESENT ILLNESS: Mr. Chang is a 43 year old male who presents today for evaluation of atrial fibrillation. He reports being diagnosed with atrial fibrillation in September 2019. He was experiencing sudden onset exertional shortness of breath, palpitations, fatigue. No obvious trigger except perhaps stress, not getting good sleep. Went to [facility], was found to have atrial fibrillation. He underwent electrical cardioversion. 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 Farley, had echocardiogram that he reports was unremarkable. He was treated with Xarelto. He was doing well at one year follow up. At about a year and half later, was still doing well, the Xarelto was stopped. He had recurrence of the atrial fibrillation in December 2023, again no obvious trigger other than the usual stress that he has. He waited overnight to see if it would resolve, but when he awoke in the morning was still in the atrial fibrillation. Went to [facility], was admitted to the hospital. The next day he underwent electrical cardioversion. He was treated with IV amiodarone then oral amiodarone for about one month. He was on Xarelto until the end of February. No recurrences of the atrial fibrillation since then, but he has experienced brief palpitations or "skipped beats" occasionally. He presents to discuss the atrial fibrillation management options, including possibility of atrial fibrillation catheter ablation. When not in atrial fibrillation he feels well, no symptoms, no exertional symptoms such as chest pain or shortness of breath. He is not aware of any particular triggers or exacerbating factors for the arrhythmia. He states compliance with prescribed CPAP therapy for sleep apnea. He does not drink excessive amounts of alcohol or caffeinated beverages. I have confirmed and edited as necessary, the PFSH and ROS obtained by others. PAST MEDICAL HISTORY Diagnosis Date Anticoagulant long-term use 04/06/2024 At risk for stroke 04/06/2024 History of cardioversion 01/02/2024 Obstructive sleep apnea uses CPAP regularly Persistent atrial fibrillation (HCC) 04/06/2024 PAST SURGICAL HISTORY Procedure Laterality Date CARDIOVERSION, ELECTIVE, ELECTRICAL 09/2019 [facility] CARDIOVERSION, ELECTIVE, ELECTRICAL 12/2023 [facility] REPAIR BICEPS TENDON RUPTURE Left 2020 TONSILLECTOMY & ADENOIDECTOMY <AGE 14 WRIST SURGERY HX Left 2002 SOCIAL HISTORY Social History Tobacco Use Smoking status: Never Smokeless tobacco: Never Substance Use Topics Alcohol use: Yes Comment: Occasionally Drug use: Never FAMILY HISTORY Problem Relation Age of Onset Thyroid Mother No Known Problems Father No Known Problems Sister Obstructive Sleep Apnea Brother Cancer Half-brother testicular ALLERGIES: ALLERGIES Allergen Reactions Penicillin G Hives Adverse Reaction Penicillins Unknown Sulfamethoxazole Hives Trimethoprim Hives MEDICATIONS: multivit-min/ferrous fumarate (MULTI VITAMIN ORAL) Take by mouth once daily. REVIEW OF SYSTEMS: Review of Systems Constitutional: Negative for chills and fever. Respiratory: Positive for shortness of breath. Negative for cough, hemoptysis and sputum production. Cardiovascular: Positive for palpitations. Negative for chest pain, orthopnea, claudication, leg swelling and PND. Gastrointestinal: Negative for abdominal pain, blood in stool, melena, nausea and vomiting. Genitourinary: Negative for dysuria, flank pain and hematuria. Musculoskeletal: Negative for falls. Skin: Negative for rash. Neurological: Negative for dizziness, focal weakness, seizures and loss of consciousness. PHYSICAL EXAMINATION: BP 118/70 Pulse 70 Resp 18 Ht 5' 11" (1.80m) Wt 229 lb (103.9kg) SpO2 97% BMI 31.95 kg/(m^2). Physical Exam Vitals reviewed. Constitutional: General: He is not in acute distress. Appearance: Normal appearance. HENT: Head: Normocephalic and atraumatic. Cardiovascular: Rate and Rhythm: Normal rate and regular rhythm. Heart sounds: Normal heart sounds, S1 normal and S2 normal. No murmur heard. No friction rub. Pulmonary: Effort: Pulmonary effort is normal. No respiratory distress. Breath sounds: Normal breath sounds. No wheezing, rhonchi or rales. Musculoskeletal: Cervical back: Neck supple. Right lower leg: No edema. Left lower leg: No edema. Skin: General: Skin is warm and dry. Neurological: General: No focal deficit present. Mental Status: He is alert and oriented to person, place, and time. Psychiatric: Mood and Affect: Mood normal. Behavior: Behavior normal. Thought Content: Thought content normal. CARDIOVASCULAR MEDICINE TESTING: Electrocardiogram: Sinus rhythm 60 bpm; normal conduction intervals (WA 118 ms, QRS 94 ms); QTc 398 ms; no WPW patterns I have personally reviewed the Electrocardiogram. 1. Persistent atrial fibrillation (HCC) - ICD9: 427.31, ICD10: I48.19 (primary diagnosis) 2. At risk for stroke - ICD9: V15.89, ICD10: Z91.89 3. Anticoagulant long-term use - ICD9: V58.61, ICD10: Z79.01 4. Obstructive sleep apnea - ICD9: 327.23, ICD10: G47.33 CHADS2-Vasc Score Breakdown 0 Total Score IMPRESSION: Mr. Chang has symptomatic atrial fibrillation that has required electrical cardioversion for both episodes that he is experienced over the past couple of years. The episodes are infrequent, but the uncertainty of when the next episode might occur weighs heavily on him. This impacts his decisions about traveling and so forth. I had a detailed discussion with Mr. Chang and his regarding atrial fibrillation and its management. I reviewed the cornerstones or pillars of management including stroke prevention, ventricular response rate control, atrial rhythm control and patient modifiable risk factors and lifestyle changes relevant to atrial fibrillation. I encouraged him with regards to his compliance with treatment for sleep apnea. I did tell him that weight loss could have substantial impact upon reducing the possibility of recurrent atrial fibrillation. He already avoids excessive alcohol and caffeine intake. He has low risk for stroke, [id number] score is zero, so he does not require oral anticoagulation therapy for stroke prevention. There is even question about whether aspirin may benefit in this low risk population. With regards to rhythm control, it seems excessive at this point to recommend an ongoing daily antiarrhythmic drug therapy, as he does not have very frequent episodes of the arrhythmia. He could try flecainide on an as-needed basis, the so-called pill in the pocket approach. This might help him to avoid needing to go to the ER for the rare occurrences of the atrial fibrillation. Another option would be to pursue catheter ablation as an early treatment strategy. There is information from small clinical trials that an earlier catheter ablation approach for younger patients could be beneficial. So I think it is very reasonable to consider catheter ablation, the procedure would have very low risk for serious complications at his relatively young age. The procedure would also have very good chance of effectiveness to eliminate the atrial fibrillation. I had a detailed discussion with Mr. Chang and his regarding my evaluation and recommendations. After our discussion, Mr. Chang and his expressed understanding and I answered all questions to their apparent satisfaction. He would like to pursue atrial fibrillation catheter ablation. INFORMED CONSENT The risks, benefits and anticipated outcomes of the procedure, the risks and benefits of the alternatives to the procedure and the roles and tasks of the personnel to be involved were discussed with the patient. Consent for the procedure and agreement to proceed has been obtained. I verify that I personally obtained the consent. PLAN AND RECOMMENDATIONS: Schedule atrial fibrillation catheter ablation. He will need to start oral anticoagulation with Xarelto (patient preference for Xarelto) about one week prior to the procedure. No medications that need to be held for the procedure. I made him aware that the atrial fibrillation catheter ablation procedures are scheduling out several months from now, potentially even late summer. Educational materials provided, also provided information to the [facility] website for additional educational information about atrial fibrillation and catheter ablation. Sherri Brown MD 04/07/2024 Medical Decision Making: Problems: Moderate: New problem with uncertain prognosis Data: Unique source(s) for external note(s) reviewed: 1 Unique test result(s) reviewed: 3+ Unique test(s) ordered: 1 Risk: Moderate: Moderate risk from testing/treatment, Drug management and Decision on minor surgery w/ risk factors Medical Decision Making Level: 4 - Moderate documented in this encounter [facility] 04-07-2024 Note HNO ID: [id number] Author: SHERRI BROWN MD Service: ? Author Type: Physician Type: Progress Notes Filed: 04/07/2024 17:18 Note Text: PRIMARY CARE PHYSICIAN: Cheryl Sierra NP [address] [place] [address] REFERRING PHYSICIAN: Jordy Pate [address] [facility] [address] [address] Patient Care Team: Cheryl Sierra CNP as PCP - General (Family Medicine) Jordy Pate APRN.CNP as Nurse Practitioner (Cardiology) CHIEF COMPLAINT: Evaluation of arrhythmia HISTORY OF PRESENT ILLNESS: Mr. Chang is a 43 year old male who presents today for evaluation of atrial fibrillation. He reports being diagnosed with atrial fibrillation in September 2019. He was experiencing sudden onset exertional shortness of breath, palpitations, fatigue. No obvious trigger except perhaps stress, not getting good sleep. Went to [facility], was found to have atrial fibrillation. He underwent electrical cardioversion. 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 Farley, had echocardiogram that he reports was unremarkable. He was treated with Xarelto. He was doing well at one year follow up. At about a year and half later, was still doing well, the Xarelto was stopped. He had recurrence of the atrial fibrillation in December 2023, again no obvious trigger other than the usual stress that he has. He waited overnight to see if it would resolve, but when he awoke in the morning was still in the atrial fibrillation. Went to [facility], was admitted to the hospital. The next day he underwent electrical cardioversion. He was treated with IV amiodarone then oral amiodarone for about one month. He was on Xarelto until the end of February. No recurrences of the atrial fibrillation since then, but he has experienced brief palpitations or "skipped beats" occasionally. He presents to discuss the atrial fibrillation management options, including possibility of atrial fibrillation catheter ablation. When not in atrial fibrillation he feels well, no symptoms, no exertional symptoms such as chest pain or shortness of breath. He is not aware of any particular triggers or exacerbating factors for the arrhythmia. He statescompliance with prescribed CPAP therapy for sleep apnea. He does not drinkexcessive amounts of alcohol or caffeinated beverages. I have confirmed and edited as necessary, the PFSH and ROS obtained by others. PAST MEDICAL HISTORY Diagnosis Date Anticoagulant long-term use 04/06/2024 At risk for stroke 04/06/2024 History of cardioversion 01/02/2024 Obstructive sleep apnea uses CPAP regularly Persistent atrial fibrillation (HCC) 04/06/2024 PAST SURGICAL HISTORY Procedure Laterality Date CARDIOVERSION, ELECTIVE, ELECTRICAL 09/2019 [facility] CARDIOVERSION, ELECTIVE, ELECTRICAL 12/2023 [facility] REPAIR BICEPS TENDON RUPTURE Left 2020 TONSILLECTOMY AND ADENOIDECTOMY WRIST SURGERY HX Left 2002 SOCIAL HISTORY Social History Tobacco Use Smoking status: Never Smokeless tobacco: Never Substance Use Topics Alcohol use: Yes Comment: Occasionally Drug use: Never FAMILY HISTORY Problem Relation Age of Onset Thyroid Mother No Known Problems Father No Known Problems Sister Obstructive Sleep Apnea Brother Cancer Half-brother testicular ALLERGIES: ALLERGIES Allergen Reactions Penicillin G Hives Adverse Reaction Penicillins Unknown Sulfamethoxazole Hives Trimethoprim Hives MEDICATIONS: multivit-min/ferrous fumarate (MULTI VITAMIN ORAL) Take by mouth once daily. REVIEW OF SYSTEMS: Review of Systems Constitutional: Negative for chills and fever. Respiratory: Positive for shortness of breath. Negative for cough, hemoptysis and sputum production. Cardiovascular: Positive for palpitations. Negative for chest pain, orthopnea, claudication, leg swelling and PND. Gastrointestinal: Negative for abdominal pain, blood in stool, melena, nausea and vomiting. Genitourinary: Negative for dysuria, flank pain and hematuria. Musculoskeletal: Negative for falls. Skin: Negative for rash. Neurological: Negative for dizziness, focal weakness, seizures and loss of consciousness. PHYSICAL EXAMINATION: BP 118/70 Pulse 70 Resp 18 Ht 5' 11" (1.80m) Wt 229 lb (103.9kg) SpO2 97% BMI 31.95 kg/(m2). Physical Exam Vitals reviewed. Constitutional: General: He is not in acute distress. Appearance: Normal appearance. HENT: Head: Normocephalic and atraumatic. Cardiovascular: Rate and Rhythm: Normal rate and regular rhythm. Heart sounds: Normal heart sounds, S1 normal and S2 normal. No murmur heard. No friction rub. Pulmonary: Effort: Pulmonary effort is normal. No respiratory distress. Breath sounds: Normal breath sounds. No wheezing, rhonchi or rales. Musculoskeletal: Cervical back: Neck supple. Right lower leg: No edema. Left lower leg: No edema. Skin: General: Skin is warm and d (more content not included)... [facility] 01-02-2024 Note [facility] Medical Records Department [address] [place] [address] Discharge Summary 01/02/24 1317 MR#: [id number] Acct: [id number] Name: ALMA CHANG Rep #: [id number] : 1980 43 From: Tina Olvera MD PCP: YESICA Bauer Status:DIS PREETHI Location: [place] [address] Providers Date of Admission: 01/01/24 Date of Discharge: 01/02/24 Primary Care Physician: YESICA Bauer Consultations 01/01/24 14:44 Consult: Cardiology Routine Consulting Provider: Juan José King Reason for Consult: symptomatic afib, here w/ RVR EMERGENT Consult: No MD Notified: Yes Date Notified: 01/01/24 Time Notified: 14:24 Method of Notification: ED Physician Initiated Reason For Visit: AFIB, RVR Diagnosis Discharge Diagnosis (1) Atrial fibrillation with RVR: Status: Acute Code(s): I48.91 - Unspecified atrial fibrillation Plan # A-fib with RVR- resolved #NASIM- on cpap #Hx adhd- no longer medicated Medications at Discharge Home Medications multivitamin (Daily Multi-Vitamin tablet) 1 tab PO DAILY vitamin 01/01/24 amiodarone 200 mg tablet See Rx Instructions .Route .COMPLEX #49 tabs 01/02/24 rivaroxaban 20 mg tablet (Xarelto) 20 mg PO DAILY #30 tabs 01/02/24 Hospital Course Procedures - (RODERICK cardioversion 01/02/24) Summary of Care Provided Minutes Spent on Discharge: 35 Hospital Course: Per HPI: "ALMA CHANG, is a 43-year-old male past medical history of A-fib presented [facility] ED 01/01/2024 for palpitations. At 11:30 PM last night he began to feel an irregular heartbeat and in the past it is resolved by the time he woke up in the morning however today it continued to be irregular and he developed some chest tightness with this prompting him to come to the emergency department. Had no significant dyspnea or overt chest pain but was found to be in A-fib with RVR. Cardiology contacted and recommended heparin and Cardizem, he was then evaluated by cardiology and they recommended Amio and hospital admission and they will see him in consultation. of note patient does have history of A-fib and was cardioverted in 2019 and took medication for a year and then was taken off of it. He had no further episodes until last night so he is not presently on medication. Hospitalist contacted for admission. Patient evaluated at bedside. He reports history as above, has not had any recent problems with palpitations until last night, today when he could feel his heart racing he was intermittently lightheaded with some chest tightness and shortness of breath, the symptoms have resolved since rate has gotten under control but he is still acutely aware that his heart rate is out of rhythm. Does report compliance with his CPAP, occasionally will miss a day but overall does wear this. He reports he will usually drink coffee or pop daily but does not drink energy drinks, he started medication for ADHD but is no longer on them. Does have some difficulty with sleeping and has poor sleep due to his work and work hours but otherwise has no new or acute complaints. Patient denies any significant alcohol use, no substance use, no tobacco use" INTERVAL HISTORY: Patient remained in A-fib and symptomatic despite amiodarone overnight so patient had RODERICK cardioversion 01/02/[address] King which was successful with return to normal sinus rhythm. Was advised patient okay to DC home on 400 twice daily Amio x 3 days followed by 200 twice daily for another week and he will need to follow-up with EP on an outpatient basis which will be coordinated through the cardiology office. Patient evaluated after cardioversion and he reports feeling much better, no chest pain or shortness of breath, no other new or acute complaints. Initial cardiology discharge instructions from progress note were included in patient's initial discharge instructions however there were updated recommendations for amiodarone course for 1 month as well as Xarelto for 1 month. Confirmed these were the appropriate discharge instructions. Discharge instructions updated. Discharge instructions follow: -You will need to start amiodarone 400 mg twice daily which you will take tonight and for 3 more days and then 200 mg twice daily for 1 week and then once daily for an additional 3 weeks -You will also be discharged on 1 month of Xarelto -Please follow-up with cardiology upon discharge. If you do not hear from the office within 1-2 business days regarding scheduling please call their office to inquire about hospital follow-up. Referral to an EP doctor will occur through their office -It is strongly advised that you continue to maintain compliance with your CPAP -Please call your primary care provider's office upon discharge to schedule a hospital follow up within 1 week. -For any concerning signs or symptoms please call 911 or proc (more content not included)... [facility] 10-09-2023 Note ORIGINAL EXAMINATION: ULTRASOUND OF THE SCROTUM/TESTICLES WITH COLOR DOPPLER FLOW EVALUATION10/09/2023 11:21 am Scrotal Ultrasound with Duplex Doppler evaluation TECHNIQUE: Duplex ultrasound using B-mode/shoemaker scaled imaging, Doppler spectral analysis and color flow Doppler was obtained of the testicles. Grayscale, color Doppler and spectral waveform evaluation This report is based on interpretation of permanently recorded ultrasound images. COMPARISON: None HISTORY: ORDERING SYSTEM PROVIDED HISTORY: Reason for Exam: lump, pain, FINDINGS: Right testicle: 4.7 x 2.3 x 2.9 cm Left testicle: 4.6 x 2.2 x 3.2 cm No suspicious focal nor diffuse abnormalities are seen. Color Doppler flow is seen in both testicles in a symmetric fashion. Spectral waveform analysis of the testicles shows arterial and venous waveforms in both testicles. There is a tiny 3 mm right epididymal cyst of no clinical significance. Otherwise normal epididymis bilaterally. There is no hydrocele on either side. No significant varicocele on either side also. IMPRESSION: Negative scrotal ultrasound. No mass or acute findings. Interpreted by: Darek Baldwin MD Preliminary Report By: Darek Baldwin MD Electronically signed By Darek Baldwin MD Dictated Date: 10/09/2023 12:33:09 PM Prelim Date: 10/09/2023 12:34:31 PM Sign Date: 10/09/2023 12:34:31 PM Ordering Provider: CHERYL SIERRA [facility] Evaluation + Plan note Future Appointments Appointment Date:03/29/2021 11:00:00 AM Scheduled Provider:CHERYL SIERRA Location:[facility] Appointment Type:PC OV [facility] Evaluation + Plan note Future Appointments Appointment Date:03/29/2022 11:00:00 AM Scheduled Provider:CHERYL SIERRA Location:[facility] Appointment Type:PC OV Follow Up Future Scheduled TestsLipid Profile 03/29/21Complete Metabolic Panel 03/29/21XR Elbow Minimum 3 Views Left 03/20/21 [facility] Evaluation + Plan note Future Appointments Appointment Date:03/29/2022 11:00:00 AM Scheduled Provider:CHERYL SIERRA Location:[facility] Appointment Type:PC OV Follow Up Future Scheduled TestsLipid Profile 03/29/21Complete Metabolic Panel 03/29/21 [facility] Evaluation + Plan note Future Appointments Appointment Date:10/22/2022 10:30:00 AM Scheduled Provider:CHERYL SIERRA Location:[facility] Appointment Type:PC Wellness Annual [facility] Evaluation note No assessment inform ation available [facility] Work Phone: Evaluation note Diagnosis Persistent atrial fibrillation (HCC)- Primary Atrial fibrillation At risk for stroke Other specified personal history presenting hazards to health Anticoagulant long-term use Long-term (current) use of anticoagulants Obstructive sleep apnea Obstructive sleep apnea (adult) (pediatric) [facility] N[facility]ative No data available for this section [facility] Hospital Discharge instructions No data available for this section [facility] Progress note No data available for this section [facility] Chief Complaint and Reason for Visit Chief Complaint left wrist pain Family History No Family History Records Found Relationship Condition Age at Onset Recorded Date/T aurelia mother Disorder of thyroid Unknown brother Sleep apnea Unknown grandfather Atrial fibrillation Unknown Advance Directives No Advanced Directives Records Found Advance Directive Response Recorded Date/ Time Living Will No October 27, 2021 10:03am Power of Pillow Cleaner No October 10:03am Summary Purpose Additional Source Comments Goals (unrecognized section and content) Goals may be documented in a n alternate section Care Team (unrecognized sect ion and content) Care Team Personnel Name: CHERYL SIERRA Position: P4 Advanced Practice Nurse Med Service: Active Provider Member Role: Primary Care Physician Address: Address: [address] [place] [address] Name: KHUSHBU FARLEY MD Member Role: Trout Farmer Address: Address: [address] [place] [address] Care Team Related Persons Name: SPEEDY CHANG Care Team Personnel Name: CHERYL SIERRA Position: P4 Advanced Practice Nurse Member Role: Primary Care Physician Address: Address: [address] [place] [address] Name: KHUSHBU FARLEY MD Member Role: Trout Farmer Address: Address: [address] [place] [address] Care Team Related Persons Name: SPEEDY CHANG Patient Care team informatio n (unrecognized section and content) Nitroglycerin Distributor Relationship Specialty Start Date End Date Cheryl Sierra CNP [address] [place] [address] PCP - General Family Medicine 03/03/24 Jordy Pate APRN.CNP [address] [place], [place] [address]E [address] [place] [address] Nurse Practitioner Cardiology 04/06/24 Nitroglycerin Distributor Relationship Specialty Start Date End Date Cheryl Sierra CNP [address] [place] [address] PCP - General Family Medicine 03/03/24 Jordy Pate APRN.LAURY [address] [place], [place] [address] Nurse Practitioner Cardiology 04/06/24 (unrecognized sect ion and content) No Status Records FoundNo Status Records FoundNo Status Records Found INFORMATION SOURCE (unrecogn ized section and content) DATE CREATED AUTHOR 10/11/2023 [facility] ([place]) DATE CREATED AUTHOR AUTHOR'S ORGANIZ ATION 02/24/2024 [facility] DATE CREATED AUTHOR AUTHOR'S ORGANIZ ATION 12/14/2024 [facility] Source Comments (unrecognize d section and content) In the event this informatio n is protected by the Federal Confidentiality of Alcohol and Drug Abuse Patient Records regulations: The Federal rules restrict any use of the information to criminally investigate or prosecute any alcohol or drug abuse patient.[facility] the event this information is protected by the Federal Confidentiality of Alcohol and Drug Abuse Patient Records regulations: The Federal rules restrict any use of the information to criminally investigate or prosecute any alcohol or drug abuse patient.[facility] Reason for Visit (unrecogniz ed section and content) Reason Comments CARD New Patient Consult Electroplater ref for paf Reason Comments Preparations For Procedures FOR RECORDS PERTAINING TO PATIENTS WHO ARE OR HAVE BEEN ENROLLED IN A CHEMICAL DEPENDENCY/SUBSTANCEABUSE PROGRAM, SOME INFORMATION MAY BE OMITTED. This clinical summary was aggregated from multiple sources. Caution should be exercised in using it in the provision of clinical care. This summary normalizes information from multiple sources, and as a consequence, information in this document may materially change the coding, format and clinical context of patient data. In addition, data may be omitted in some cases. CLINICAL DECISIONS SHOULD BE BASED ON THE PRIMARY CLINICAL RECORDS. [facility] [employer] [facility]. provides no warranty or guarantee of the accuracy or completeness of information in this document.
[2025-02-09] MEDS: 0.9% Normal Saline (500mL Bag) 500 ML 1000 ML IV (17:32)
[2025-02-09 17:34] LABS: Hematocrit 41.9 % (40-54); Hemoglobin 14.6 g/dL (13.0-16.5); Immature Granulocytes Count 0.030 X10^3/uL (0.0-0.0); Mean Corp Hgb Conc 34.8 g/dL (32-36); Mean Corpuscular Volume 86.2 fL (80-94); Mean Platelet Vol. 9.0 fl (6.2-12.0); NRBC Flagged by Analyzer 0 % (0-5); Platelet Count 366 K/mm3 (150-450); RBC Distribution Width CV 12.7 % (11.6-14.6); RBC Distribution Width SD 39.8 fl (35.1-43.9); Red Blood Count 4.86 M/mm3 (4.6-6.2); White Blood Count 8.0 K/mm3 (4.4-11.0)
--- NOTE | 2025-02-09 17:39 | EDS_ITS ---
HPI History of Present Illness Chief Complaint: Dizziness Informant: patient and family (sister) Narrative Narrative: Patient is a 44-year-old male with a history of ADHD, presenting with lightheadedness and near-syncope. - Symptoms began a few hours ago, around 1500, while working overhead for awhile on a light fixture at home. Standing on a stool at the time. Initially felt "off" and slightly lightheaded upon getting down from stool, which progressively worsened despite sitting down and resting. - Called his sister, a nurse, for advice; she recommended having someone monitor him. - Mother picked him up; symptoms peaked during the car ride to the ED, including perioral and bilateral finger paresthesias, and a stronger sensation of near- syncope. Did have a little nausea. Unclear if he turned his head to trigger the worsening during the car ride or not but it worsened while he was sitting in the car. - Denies palpitations, chest pain, or significant dyspnea. - No changes in vision, earache, or tinnitus. Did have URI in the past week or 2, has been gradually improving. No ear symptoms. - Denies recent bleeding, melena, or hematochezia. - Reports inadequate fluid intake today, consuming two large cups of coffee and some water, but less than usual. - Took two 5 mg doses of his ADHD medication around [id number], instead of his usual one dose; first time taking this higher dose (Took 10 mg instead of 5 mg). No other new prescription or substance intake. - Also on Wellbutrin, with occasional missed doses; has a history of paroxysmal A-fib and knows when that happens and he had none of the symptoms recently. [facility] Medical History History of cardioversion (01/02/24) Contact with or exposure to other viral diseases URI (upper respiratory infection) Stomach ulcer Obstructive sleep apnea Paroxysmal atrial fibrillation Atrial fibrillation Home Medications Medication Instructions Recorded Last Taken Type multivitamin (Daily Multi-Vitamin 1 tab PO DAILY vitam in 01/01/24 Unknown History tablet) Allergy/AdvReac Type Severity Reaction Status Date / Time Penicillins Allergy PT UNSURE Verified 02/09/25 16:11 OF REACTION sulfamethoxazole (From Allergy Hives Verified 02/09/25 16:11 Bactrim) trimethoprim (From Bactrim) Allergy Hives Verified 02/09/25 16:11 penicillin G AdvReac Hives Verified 02/09/25 16:11 Family History Mother Thyroid disorder Brother Sleep apnea Grandfather Atrial fibrillation Onset in mid 70s. Surgical History History of surgery on upper extremity H/O adenoidectomy H/O left wrist surgery Social History Smoking Status: Never smoker alcohol intake: current details: Rarely ROS ROS ED Constitutional Constitutional ED: Denies chills or fever(s) Eyes Eyes: Denies change in vision or diplopia ENT ENT ED: Reports disequillibrium, dizziness and rhinorrhea; Denies ear discharge, ear pain, headache(s), hearing loss, sore throat or tinnitus Cardiovascular Cardiovascular: Reports lightheadedness; Denies chest pain, palpitations or syncope Respiratory/Chest Respiratory/Chest: Reports cough; Denies dyspnea Gastrointestinal Gastrointestinal: Denies abdominal pain, diarrhea, nausea or vomiting Genitourinary Genitourinary ED: Denies dysuria or hematuria Musculoskeletal Musculoskeletal: Denies back pain or neck pain Integumentary Denies abscess or rash Neurologic Neurologic: Denies headache(s), paresthesias or weakness Psychiatric Psychiatric: Denies anxiety or suicidal thoughts EXAM Physical Exam Const Vital Signs: 02/09/25 16:12 02/09/25 16:35 02/09/25 17:23 Temperature 97.8 F Temperature Source Temporal Pulse Rate 73 68 89 Pulse Rate [Lying] Pulse Rate [Sitting (for 1 minute prior to obtaining)] Pulse Rate [Standing (for 1 minute prior to obtaining)] Respiratory Rate 16 18 21 H Blood Pressure 135/68 H 130/65 H Blood Pressure [Lying] Blood Pressure [Sitting (for 1 minute prior to obtaining)] Blood Pressure [Standing (for 1 minute prior to obtaining)] Blood Pressure Mean 90 86 Blood Pressure Mean [Lying] Blood Pressure Mean [Sitting (for 1 minute prior to obtaining)] Blood Pressure Mean [Standing (for 1 minute prior to obtaining)] Pulse Ox 100 99 100 Oxygen Delivery Method Room Air Room Air 02/09/25 17:26 02/09/25 17:28 02/09/25 17:30 Temperature Temperature Source Pulse Rate 82 72 Pulse Rate [Lying] 79 Pulse Rate [Sitting (for 1 minute prior to obtaining)] 75 Pulse Rate [Standing (for 1 minute prior to obtaining)] 84 Respiratory Rate 22 H 16 Blood Pressure 124/66 H 131/72 H Blood Pressure [Lying] 124/66 H Blood Pressure [Sitting (for 1 minute prior to obtaining)] 131/72 H Blood Pressure [Standing (for 1 minute prior to obtaining)] 127/81 H Blood Pressure Mean 82 87 Blood Pressure Mean [Lying] 85 Blood Pressure Mean [Sitting (for 1 minute prior to obtaining)] 91 Blood Pressure Mean [Standing (for 1 minute prior to obtaining)] 96 Pulse Ox 100 Oxygen Delivery Method 02/09/25 17:31 02/09/25 17:45 02/09/25 18:00 Temperature Temperature Source Pulse Rate 84 70 68 Pulse Rate [Lying] Pulse Rate [Sitting (for 1 minute prior to obtaining)] Pulse Rate [Standing (for 1 minute prior to obtaining)] Respiratory Rate 25 H 14 13 Blood Pressure 127/81 H 132/82 H 131/80 H Blood Pressure [Lying] Blood Pressure [Sitting (for 1 minute prior to obtaining)] Blood Pressure [Standing (for 1 minute prior to obtaining)] Blood Pressure Mean 95 95 93 Blood Pressure Mean [Lying] Blood Pressure Mean [Sitting (for 1 minute prior to obtaining)] Blood Pressure Mean [Standing (for 1 minute prior to obtaining)] Pulse Ox 99 98 96 Oxygen Delivery Method 02/09/25 18:15 02/09/25 18:30 02/09/25 18:45 Temperature Temperature Source Pulse Rate 65 72 67 Pulse Rate [Lying] Pulse Rate [Sitting (for 1 minute prior to obtaining)] Pulse Rate [Standing (for 1 minute prior to obtaining)] Respiratory Rate 20 H Blood Pressure 130/80 H 131/81 H 131/79 H Blood Pressure [Lying] Blood Pressure [Sitting (for 1 minute prior to obtaining)] Blood Pressure [Standing (for 1 minute prior to obtaining)] Blood Pressure Mean 93 94 94 Blood Pressure Mean [Lying] Blood Pressure Mean [Sitting (for 1 minute prior to obtaining)] Blood Pressure Mean [Standing (for 1 minute prior to obtaining)] Pulse Ox 94 99 97 Oxygen Delivery Method 02/09/25 19:00 Temperature Temperature Source Pulse Rate 75 Pulse Rate [Lying] Pulse Rate [Sitting (for 1 minute prior to obtaining)] Pulse Rate [Standing (for 1 minute prior to obtaining)] Respiratory Rate 15 Blood Pressure 134/85 H Blood Pressure [Lying] Blood Pressure [Sitting (for 1 minute prior to obtaining)] Blood Pressure [Standing (for 1 minute prior to obtaining)] Blood Pressure Mean 96 Blood Pressure Mean [Lying] Blood Pressure Mean [Sitting (for 1 minute prior to obtaining)] Blood Pressure Mean [Standing (for 1 minute prior to obtaining)] Pulse Ox 95 Oxygen Delivery Method Positive well nourished and well developed General Appearance ED: well developed and NAD HEENT Reports TM's clear and moist mucous membranes normocephalic and atraumatic Tympanic Membrane ED: Yes TM's clear Eyes PERRL and EOMs intact bilaterally Eyes Narrative: No direction changing nystagmus. Normal visual hooker. Neck full ROM and supple Resp normal respiratory effort and clear to auscultation bilaterally Cardio regular rate, regular rhythm and no murmurs Rate: Negative for tachycardic GI non-tender and non-distended Auscultation: normoactive bowel sounds Palpation: soft Back/Spine no CVA tenderness General Back: other FROM Extremity normal to inspection General Extremety ED: Negative for edema, pulses abnormal or tenderness General Extremity: Negative for edema or pulses abnormal Neuro oriented x3, CN's II-XII intact bilaterally and no sensory deficits noted Neuro Narrative: Normal speech. Normal Romberg. Normal gait. NIHSS 0. Normal [id number]-gpha and oihk-vh-hrel bilaterally. Negative [place]Hallpike bilaterally. Patient asymptomatic with all of this, so jolt test not performed. Sensorium / Orientation: awake and alert Motor Exam: strength 5/5 throughout Skin no rashes or lesions noted and no wounds MDM MDM MDM Narrative Medical decision making narrative: Assessment: The patient is a 44-year-old male with PMH of atrial fibrillation and ADHD presenting for several-hour episode of progressive lightheadedness and nikole-oral and digital tingling that peaked en route to the ED. Differential diagnoses discussed include dehydration, adverse effect from taking a double 10 mg dose of his ADHD stimulant, anemia, electrolyte imbalance, benign positional vertigo ([place]-Hallpike negative in ED), and cardiac dysrhythmia. EKG is normal and telemetry shows no dysrhythmia; labs are within normal limits, including random glucose 116 mg/dL, lowering concern for metabolic or hematologic causes. Given normal objective data and complete symptom resolution after fluid bolus, an adverse medication effect is most likely. Plan: - Administered 500 mL IV crystalloid bolus. - Continuous cardiac monitoring during ED stay—no dysrhythmia observed. - Provided counseling to hold stimulant tomorrow, maintain adequate oral hydration, and strict return precautions for recurrent dizziness, chest palpitations, or worsening symptoms. - Disposition: discharged home in stable condition with resolved symptoms. Diagnostics: - EKG: normal sinus rhythm, no ectopy or ST-T abnormalities. Normal. No telemetry events. Independently interpreted by me, Randy Holman. - Labs: Basic metabolic panel, complete blood count within normal limits; random glucose 116 mg/dL. Reevaluations: - Patient re-examined after fluid bolus; reports feeling normal, ambulates without imbalance, vitals stable, tolerates oral intake, agreeable to discharge plan. Portions of this note were generated using voice recognition software ([employer]). I have reviewed the contents and every effort has been made to ensure accuracy; however, inadvertent errors in grammar, spelling, punctuation, or word choice may occur, that were not noted before signing the document and should not alter the intended clinical meaning. Lab Data Attestation: I reviewed the patient's lab results. Labs: Laboratory Results - last 24 hr 02/09/25 16:47 WBC 8.0 RBC 4.86 Hgb 14.6 Hct 41.9 MCV 86.2 MCH 30.0 MCHC 34.8 RDW Std Deviation 39.8 RDW Coeff of Joey 12.7 Plt Count 366 MPV 9.0 Immature Gran % (Auto) 0.400 Neut % (Auto) 75.8 H Lymph % (Auto) 17.4 L Moody % (Auto) 5.2 Eos % (Auto) 0.8 Baso % (Auto) 0.4 Absolute Neuts (auto) 6.0 Absolute Lymphs (auto) 1.38 Nucleated RBC % 0 Sodium 136 Potassium 3.7 Chloride 103 Carbon Dioxide 22.0 Anion Gap 11 BUN 12 Creatinine 0.97 Estim Creat Clear Calc 120.93 Est GFR (MDRD) Non-Af 100 BUN/Creatinine Ratio 12.5 Glucose 116 H Calcium 9.0 Rhythm Strip Rhythm Strip: Sinus Rhythm Rate: 65 Ectopy: None EKG Initial EKG: Attestation: I personally reviewed and interpreted this EKG as follows: Interpretation: Sinus Rhythm and No Acute Injury Pattern Comments: Nml axis & intervals; nml EKG Discharge Plan Triage Chief Complaint: Dizziness ED Provider: Randy Holman Dx/Rx/DC Orders Clinical Impression: Lightheadedness, Adverse drug effect Instructions: ED Dizziness, Uncertain Cause Prescriptions: No Action multivitamin [Daily Multi-Vitamin] Tablet 1 tab PO DAILY Primary Care Provider: Castro García NP Referrals: Castro García NP, [facility] [Primary Care Provider, Medical] - As Needed Activity Restrictions/Additional Instructions: - Do not take your ADHD medication tomorrow; resume your usual dose the following day. - Drink plenty of fluids and stay well hydrated. Print Language: [place] Disposition Disposition: Home, Self Care
[2025-02-09 17:47] LABS: Anion Gap 11 (7-18); BUN 12 mg/dL (4-19); BUN/Creat Ratio 12.5 RATIO (10-20); Calcium,Total 9.0 mg/dL (7.6-11.0); Carbon Dioxide 22.0 mmol/L (20.0-29.0); Chloride 103 mmol/L (96-106); Estimated Creatinine Clearance 120.93 ml/min (50-250); Glucose 116 mg/dL (70-99); Potassium 3.7 mmol/L (3.5-5.1)
== END 2025-02-09 19:31 | disposition home or self-care (01) ==
PROVIDERS: Emergency Provider Emergency Medicine; PCP Nurse Practitioner Primary Care; Visit Provider Emergency Medicine
DX: R42 Dizziness and giddiness (principal); F90.9 Attention-deficit hyperactivity disorder, unspecified type; R55 Syncope and collapse; T50.905A Adverse effect of unspecified drugs, medicaments and biological substances, initial encounter; I49.9 Cardiac arrhythmia, unspecified
CPT/HCPCS: 80048; 85025; 93005; 96360; 99285; A4216